=== PATIENT | male | born 1975 | race Caucasian/White ===

== ENCOUNTER 2020-07-11 13:37 | Outpatient (REF) | payer OTHER, SELFPAY ==
--- NOTE | 2020-07-11 13:46 | XR_ITS ---
EXAMINATION: XR KNEE, LEFT CLINICAL INFORMATION: Left knee pain COMPARISON: None TECHNIQUE: Four views of the left knee. FINDINGS: There is no fracture or dislocation or destructive process. No joint narrowing or erosive change or chondrocalcinosis. No suprapatellar effusion. Hoffa's fat pad appears normal. There is incidental small bone island distal anterior femoral shaft. XR/XR knee LT 4V IMPRESSION: Normal left knee.
== END 2020-07-11 13:38 | disposition home or self-care (01) ==
LOC: HO.HMGCX 13:37
PROVIDERS: PCP Internal Medicine; Visit Provider Hospitalist
DX: M25.562 Pain in left knee (principal); Z20.828 Contact with and (suspected) exposure to other viral communicable diseases
CPT/HCPCS: 73564; 87635

== ENCOUNTER 2021-02-27 09:58 | Outpatient (REF) | payer OTHER, SELFPAY ==
--- NOTE | ~2021-02-27 | XR_ITS ---
EXAMINATION: XR SHOULDER, RIGHT CLINICAL INFORMATION: Pain COMPARISON: None TECHNIQUE: Three views of the right shoulder. FINDINGS: Bone alignment is normal. No fracture or dislocation is seen. Joint spaces are normal. There is a small soft tissue calcification or ossification inferior to the distal clavicle near the coracoclavicular ligament. Soft tissues are otherwise unremarkable. XR/XR shoulder RT min 2V IMPRESSION: Small soft tissue calcification or ossification adjacent to the distal clavicle in the region of the coracoclavicular ligament otherwise unremarkable exam.
== END 2021-02-27 09:59 | disposition home or self-care (01) ==
LOC: HO.HOSX 09:58
PROVIDERS: PCP Internal Medicine; Visit Provider Physician Assistant
DX: M54.12 Radiculopathy, cervical region (principal); M25.511 Pain in right shoulder
CPT/HCPCS: 73030; 99202

== ENCOUNTER 2021-04-20 18:16 | Inpatient (IN) | payer OTHER, SELFPAY ==
[2021-04-20] VITALS (7 sets, daily range): BP systolic 84–133; BP diastolic 52–79; PULSE 78–105; RESP 16–17; TEMP 37.2; O2SAT 98–99; BMI 27.8
--- NOTE | ~2021-04-20 | CT_ITS ---
EXAMINATION: CT LEFT FOOT WITHOUT CONTRAST CLINICAL INFORMATION: [place]ar[place] removed from left heel. Swelling. Rule out abscess or foreign body. COMPARISON: None TECHNIQUE: Multidetector CT imaging of the left foot was performed without use of intravenous contrast. FINDINGS: No periosteal reaction, cortical destruction or intramedullary lucency to suggest osteomyelitis. There is fat stranding within the heel fat pad and posterior to the calcaneus without drainable collection. There is also coalescent stranding plantar to the fifth metatarsal head. Tendons of the ankle and plantar and extensor tendons of the foot appears intact. No tenosynovitis. Intrinsic musculature of the foot normal in signal intensity. No radiopaque foreign body. CT/CT foot LT wo con IMPRESSION: No evidence of abscess or osteomyelitis. No radiopaque foreign body. Mild fat stranding within the plantar heel fat pad and plantar to the fifth metatarsal head.
--- NOTE | ~2021-04-20 | CT_ITS ---
EXAMINATION: CT ABDOMEN AND PELVIS WITHOUT CONTRAST CLINICAL INFORMATION: Acute renal failure. Rule out stones, obstruction. COMPARISON: None TECHNIQUE: Multidetector volumetric imaging was performed from the superior aspect of the liver through the pubic symphysis. Sagittal and coronal reformatted images were obtained on the technologist's workstation. This CT examination was performed using dose optimization techniques as appropriate, variously including the following: *Automated exposure control *Adjustment of mA and/or kV according to patient size (this includes techniques or standardized protocols for targeted exams where dose is matched to indication/reason for exam; i.e. extremities or head) *Use of iterative reconstruction technique DLP: 659 mGy-cm FINDINGS: LUNG BASES: The visualized lung bases are unremarkable. Small hiatal hernia. LIVER, GALLBLADDER, AND BILIARY TREE: The liver is normal in size, shape, and attenuation. No focal hepatic lesion or biliary ductal dilatation is present. There is a 2 cm lamellated gallstone in the gallbladder. Gallbladder is contracted around this stone. No evidence of cholecystitis. PANCREAS: Unremarkable. SPLEEN: Unremarkable. ADRENAL GLANDS: Unremarkable. KIDNEYS AND URETERS: The kidneys are normal in size, shape, and attenuation. No hydronephrosis or hydroureter. Multiple bilateral nonobstructing renal calculi are identified. There is a 4 mm calculus within a right lower pole calyx. Most of the calculi measure 2 to 3 mm in diameter. These are too small to obtain a reliable attenuation value. No perinephric stranding. BLADDER: Unremarkable. GASTROINTESTINAL TRACT: Stomach, small bowel, and colon are normal in caliber. No bowel wall thickening or surrounding inflammatory changes. There is mild to moderate diffuse diverticulosis, most pronounced in the sigmoid colon. Appendix is not seen, likely surgically absent. No intraperitoneal free fluid or free air. ABDOMINAL WALL: No significant hernia is appreciated. LYMPH NODES: Normal. VASCULAR: Abdominal aorta is normal in caliber. No appreciable atherosclerotic calcifications. PELVIC VISCERA: The prostate and seminal vesicles are unremarkable. OSSEOUS STRUCTURES: Chronic bilateral L5 pars defects are noted. There is grade 1 anterolisthesis of L5 on S1 by 7 mm as well as slight retrolisthesis of L4 and L5. Degenerative disc disease is present at L5-S1. Bilateral neural foraminal encroachment is evident at L5-S1. CT/CT abdomen pelvis wo con IMPRESSION: 1. Bilateral nephrolithiasis without ureterolithiasis or findings of obstructive uropathy. Relief. 2. Cholelithiasis without evidence of acute cholecystitis. 3. Colonic diverticulosis without evidence of acute diverticulitis. 4. Bilateral pars defects at L5 with grade 1 anterolisthesis of L5 on S1, marked degenerative disc disease, and bilateral neural foraminal encroachment (exiting L5 nerve roots).
--- NOTE | ~2021-04-20 | XR_ITS ---
EXAMINATION: XR CHEST CLINICAL INFORMATION: Chest pain COMPARISON: 10/08/2019 TECHNIQUE: PA and lateral views of the chest were obtained. FINDINGS: Lungs are clear. No consolidation, pneumothorax, or pleural effusion. Cardiac and mediastinal contours are normal. Pulmonary vasculature is unremarkable. Trachea is midline. Left fifth rib fracture posteriorly is new from prior, though appears healed. No acute fractures. XR/XR chest 2V IMPRESSION: No acute cardiopulmonary findings.
--- NOTE | 2021-04-20 19:04 | ECG_ITS ---
Test Reason : SYNCOPE Blood Pressure : / mmHG Vent. Rate : 092 BPM Atrial Rate : 092 BPM P-R Int : 144 ms QRS Dur : 102 ms QT Int : 384 ms P-R-T Axes : 060 -11 064 degrees QTc Int : 474 ms Normal sinus rhythm Moderate voltage criteria for LVH, may be normal variant Nonspecific T wave abnormality Prolonged QT Abnormal ECG When compared with ECG of 07-OCT-2019 23:05, No significant change was found Referred By: Matthew Ordonez Electronically Signed By:Miguelangel Castillo
[2021-04-20 19:36] LABS: MANUAL DIFF FLAG NO
[2021-04-20 19:37] LABS: Basophils Percent Auto 0.2 % (0-2); Eosinophils Absolute Auto 0.1 X10*3/uL (0.0-0.4); Eosinophils Percent Auto 1.4 % (0-4); Hematocrit 39.2 % (42-52); Hemoglobin 12.8 g/dl (14.0-18.0); Imm Gran Abs Auto 0.02 X10*3/uL (0.00-0.03); Imm Gran Pct Auto 0.2 % (0.0-0.4); Lymphocytes Absolute Auto 1.7 X10*3/uL (1.2-4.9); Lymphocytes Percent Auto 19.7 % (20-40); Mean Corpuscular HGB Conc 32.7 g/dl (31.0-36.0); Mean Corpuscular Hemoglobin 29.7 pg (27.0-33.0); Mean Platelet Volume 9.9 fL (9.4-12.4); Monocytes Absolute Auto 1.1 X10*3/uL (0.1-1.2); Monocytes Percent Auto 13.3 % (2-11); Neutrophils Absolute Auto 5.5 X10*3/uL (2.0-8.3); Neutrophils Percent Auto 65.2 % (45-73); Platelet Count 196 X10*3/uL (160-400); Red Blood Count 4.31 X10*6/uL (4.60-5.80); Red Cell Distribution Width 13.6 % (11.0-16.0); White Blood Count 8.5 X10*3/uL (4.8-10.8)
[2021-04-20 19:44] LABS: INTERNATIONAL NORM RATIO 1.1 (0.9-1.1)
[2021-04-20 19:46] LABS: Partial Thromboplastin Time 32.4 SEC (24.1-38.0)
[2021-04-20] MEDS: cefTRIAXone sodium 1 GM in 0.9 % Sodium Chloride 100 ML IV (19:50)
[2021-04-20] MEDS: Diphth,Pertus(ACell),Tet Adult 0.5 ML SYRINGE IM (19:51)
[2021-04-20] MEDS: 0.9 % Sodium Chloride 2,721.54 ML 2721.54 ML IVCONT (19:52)
[2021-04-20 20:25] LABS: Lactic Acid 1.8 mmol/L (0.5-2.0)
[2021-04-20 20:41] LABS: Alanine Aminotransferase 34 U/L (0-40); Albumin Level 4.6 g/dL (3.5-5.0); Alkaline Phosphatase 74 U/L (39-117); Anion Gap 23 (12-20); Aspartate Amino Transferase 71 U/L (5-37); Bilirubin Total 0.5 mg/dL (0.0-1.0); Blood Urea Nitrogen 69 mg/dL (9-16); Calcium 8.8 mg/dL (8.4-10.2); Carbon Dioxide 17 mmol/L (22-29); Chloride 100 mmol/L (96-108); Creatinine Clr Calc Pharmacy 9.7; Estimated Glomerular Filt Rate 5; Glucose Random 101 mg/dL (60-115); Potassium 4.2 mmol/L (3.3-5.1); Sodium 136 mmol/L (135-145); Total Protein 7.8 g/dL (6.5-8.0)
[2021-04-20 20:42] LABS: Troponin-I High Sensitivity 61.8 ng/L (<3.5-35.0)
[2021-04-20] MEDS: Acetaminophen 325 MG TABLET 650 MG PO (21:33)
[2021-04-20] MEDS: traZODone HCL 100 MG TABLET PO (21:33)
[2021-04-20] MEDS: QUEtiapine Fumarate 300 MG TABLET PO (21:33)
[2021-04-20] MEDS: carvediloL 6.25 MG TABLET PO (21:33)
[2021-04-20 22:36] LABS: Glucose Urine UA NEG (NEG); Leukocyte Esterase Urine NEG (NEG); Nitrite Urine NEG (NEG); PH 5.5 (5.0-8.0); Specific Gravity - Urine 1.025 (1.005-1.025); UACC Culture Trigger NO; Urine Blood 3+ (NEG); Urine Ketones NEG (NEG); Urine Protein 1+ MG/DL (NEG-TRACE)
[2021-04-20 22:42] LABS: Appearance Urine CLEAR; Color Urine YELLOW
--- NOTE | 2021-04-20 22:53 | ED.GENADULT ---
HPI - General Adult General Chief complaint: Syncope Stated complaint: ? foot infection Time Seen by Provider: 04/20/21 18:46 Source: patient Mode of arrival: EMS Limitations: no limitations History of Present Illness HPI narrative: 45-year-old male who presents emergency department for evaluation of possible infection to his left heel after stepping fishhook and multiple episodes syncope. Patient states that 4 days prior he was fishing and stepped on a chaka facial. He states he is able hold the fishhook out with pliers. He states that 1 day after he pulled the fissure about, he poked his heel with a hand was able to express pus from the wound. He states that since that time he has been having increased pain in his left heel with increased swelling and increased warmth and redness. He also states he has had multiple episodes of lightheadedness and dizziness which have caused him to pass out. He believes that he is fall at least 3-4 times, this occurs mainly when he goes from a sitting to standing position. He states that he feels lightheaded and then blacks out. He denied fever but states that he has been experiencing shaking chills. He denied cough, dyspnea exertion or shortness of breath. He states that he has been experiencing chest pain but he has this constantly. He states that he has been getting a squeezing sensation in the center of his chest. He also complains of diffuse abdominal pain with no nausea or vomiting. States that he has been experiencing bouts of constipation and bouts of diarrhea. The patient does admit to snorting 1 g of cocaine 4 days prior. He has received tetanus vaccinations in the past but is not certain was last shot was given. The patient did receive the 2 shot Moderna COVID-19 vaccination with the 2nd shot in February 2021. Related Data Home Medications Medication Instructions Recorded Confirmed cholecalciferol (vitamin D3) 25 25 mcg PO DAILY 07/29/20 02/18/21 mcg (1,000 unit) capsule furosemide 20 mg tablet (Lasix) 20 mg PO DAILY 07/29/20 02/18/21 lisinopril 20 mg tablet 20 mg PO DAILY 07/29/20 02/18/21 quetiapine 50 mg tablet (Seroquel) 50 mg PO DAILY 07/29/20 gabapentin 300 mg capsule 300 mg PO TID 10/07/20 02/18/21 quetiapine 300 mg tablet (Seroquel) 300 mg PO DAILY 10/07/20 02/18/21 amlodipine 5 mg tablet 5 mg PO DAILY 02/18/21 02/18/21 atorvastatin 40 mg tablet 40 mg PO BEDTIME 02/18/21 02/18/21 trazodone 100 mg tablet 100 mg PO BEDTIME 02/18/21 02/18/21 Previous Rx's Medication Instructions Recorded diclofenac sodium 75 mg 75 mg PO BID 10 Days #20 tab 02/18/21 tablet,delayed release omeprazole 40 mg capsule,delayed 40 mg PO DAILY 90 Days #90 cap 02/18/21 release lidocaine 5 % topical patch 1 patch TOPICAL DAILY 30 Days #30 02/25/21 ea tramadol 50 mg tablet 50 mg PO BEDTIME 10 Days #10 tab 02/25/21 carvedilol 6.25 mg tablet 6.25 mg PO BID #180 tab 04/15/21 Allergies Allergy/AdvReac Type Severity Reaction Status Date / Time No Known Allergies Allergy Verified 04/20/21 18:37 [No Known Allergies*] bees Allergy Unknown swelling Uncoded 04/20/21 18:37 and difficulty breathing Review of Systems Review of Systems: Yes all other systems are reviewed and are negative [facility] Past Medical History [facility] Narrative: Social history: Patient denies tobacco use. He states that drinks alcohol occasionally. The patient does use marijuana daily. He states that he did snort 1 g of cocaine 4 days prior. Medical History Bipolar 1 disorder Cardiomyopathy CHF (congestive heart failure) CKD (chronic kidney disease) stage 3, GFR 30-59 ml/min Family History Family History Father No problems noted. Mother No problems noted. 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 Physical Exam Vital Signs: Vital Signs: Last Vital Signs Temp 98.9 F 04/20/21 18:30 Pulse 90 04/20/21 21:56 Resp 17 04/20/21 21:56 BP 130/79 04/20/21 21:56 Pulse Ox 98 04/20/21 21:56 Body Mass Index 27.8 Const: General: cooperative and no acute distress Orientation/consciousness: oriented to person and oriented to place Limitations: no limitations HENMT: Head: Yes normal to inspection, Yes normocephalic and Yes atraumatic Ears: external ears normal General nose exam: Normal external nose present Face and sinus: Yes normal facial exam Mouth: Normal oral and palatal mucosa present Throat: Yes posterior oropharynx normal Eyes: General: appearance normal, both eyes and all related structures Pupils: Equal, round and reactive pupils present Neck: Neck: Yes normal visual inspection, Yes no lymphadenopathy, Yes trachea midline and Yes supple Chest: Chest palpation & inspection: normal inspection of the chest and normal palpation of entire chest wall Resp: Effort & Inspection: normal respiratory effort and able to speak in complete sentences Auscultation: clear to auscultation bilaterally Cardio: Rate: regular rate Rhythm: regular rhythm Heart sounds: S1 normal heart sound present, S2 normal heart sound present and no murmurs GI: Inspection: Yes normal to inspection Palpation (GI): Soft to palpation, nontender and no guarding Auscultation: normal bowel sounds : General: Yes no CVA tenderness Back/Spine/Pelvis: Back: no CVA tenderness Skin: General skin exam: no rashes or lesions noted Neuro: General: oriented to person and oriented to place Cranial nerves: Yes CN's II-XII intact bilaterally and Yes Equal, round and reactive pupils present Cognition (Neuro): normal cognition Motor exam (neuro): 5/5 motor strength present throughout Extrem: Other: Patient's left heel does have some slight erythema with slight increased warmth, heel is flocculent, very tender to palpation, no lymphangitis noted, no purulent discharge. Psych: Appearance: grossly normal Speech and movement: Normal speech and movement present Affect: normal affect Attitude: cooperative Thought process: Normal thought process present Thought content: Normal thought content present Course Course Course Narrative: 45-year-old male who presents emergency department for evaluation of possible infection of the left heel after stepping on a chaka fishhook 4 days prior. Patient was able to remove the fishhook. He also stuck a pain in his heel 3 days prior and he states that he did express some purulent material. Patient is also complaining of multiple syncopal episodes and chest pain. Physical examination did reveal some increased erythema with increased soft tissue swelling and warmth of the heel. Laboratory evaluation was ordered. Concerned the patient may have an infection of his left heel and he was ordered to get ceftriaxone 1 g IV. His Tdap was also updated here in the emergency department. 2309: The patient's CBC revealed a normal white blood count of 8500. Comprehensive metabolic panel revealed an elevated BUN and creatinine of 69 and 10.94. This is elevated compared to a baseline of 19 and 1.51 on 10/07/2019. Patient's bicarb was also low at 17, potassium was normal at 4.2. The patient's CK was elevated at 7206. High sensitivity troponin was also elevated at 61.8, 3 hour repeat high sensitivity troponin was improved at 35. Urinalysis revealed 1+ protein and 3+ blood, microscopic revealed only 1-4 RBCs suggesting that the 3+ blood may be secondary to myoglobin from the elevated CK. I did discuss the patient's presentation with the covering refinery operator [employer] plant, Dr. Mejia who felt that the patient's acute kidney injury may be secondary to rhabdomyolysis caused by his cocaine use. He agreed with the normal saline bolus and recommended the patient be placed on normal saline at [address] scan of the abdomen pelvis did not reveal bilateral nephrolithiasis without obstructive uropathy. I discuss the patient's presentation with the covering hospitalist, Dr. Milan will admit the patient for further treatment. I will obtain a CT scan of the patient's left foot to evaluate for possible abscess or foreign body. Medical Decision Making Lab Data Result diagrams: 04/20/21 19:28 04/20/21 19:28 Labs: Lab Results 04/20/21 04/20/21 04/20/21 Range/Units 19:27 19:28 19:28 WBC 8.5 (4.8-10.8) X10*3/uL RBC 4.31 L (4.60-5.80) X10*6/uL Hgb 12.8 L (14.0-18.0) g/dl Hct 39.2 L (42-52) % MCV 91.0 (80-98) fL MCH 29.7 (27.0-33.0) pg MCHC 32.7 (31.0-36.0) g/dl RDW 13.6 (11.0-16.0) % Plt Count 196 (160-400) X10*3/uL MPV 9.9 (9.4-12.4) fL Immature Gran % (Auto) 0.2 (0.0-0.4) % Neut % (Auto) 65.2 (45-73) % Lymph % (Auto) 19.7 L (20-40) % Emery % (Auto) 13.3 H (2-11) % Eos % (Auto) 1.4 (0-4) % Baso % (Auto) 0.2 (0-2) % Lymph # (Auto) 1.7 (1.2-4.9) X10*3/uL Emery # (Auto) 1.1 (0.1-1.2) X10*3/uL Eos # (Auto) 0.1 (0.0-0.4) X10*3/uL Baso # (Auto) 0.0 (0.0-0.2) X10*3/uL Abs Immat Gran (auto) 0.02 (0.00-0.03) X10*3/uL Absolute Neuts (auto) 5.5 (2.0-8.3) X10*3/uL Absolute Nucleated RBC 0.000 (0.0-0.012) X10*3/uL Nucleated RBC % (auto) 0.0 (0.0-0.2) /100WBC PT 12.0 (9.9-13.0) SEC INR 1.1 (0.9-1.1) APTT 32.4 (24.1-38.0) SEC Sodium (135-145) mmol/L Potassium (3.3-5.1) mmol/L Chloride (96-108) mmol/L Carbon Dioxide (22-29) mmol/L Anion Gap (12-20) BUN (9-16) mg/dL Creatinine (0.5-1.4) mg/dL Estim Creat Clear Calc Estimated GFR Random Glucose (60-115) mg/dL Lactic Acid 1.8 (0.5-2.0) mmol/L Calcium (8.4-10.2) mg/dL Total Bilirubin (0.0-1.0) mg/dL AST (5-37) U/L ALT (0-40) U/L Alkaline Phosphatase (39-117) U/L Total Creatine Kinase (38-174) U/L Troponin I High Sens (<3.5-35.0) ng/L Total Protein (6.5-8.0) g/dL Albumin (3.5-5.0) g/dL Urine Color Urine Appearance Urine pH (5.0-8.0) Ur Specific [place] (1.005-1.025) Urine Protein (NEG-TRACE) MG/DL Urine Glucose (UA) (NEG) MG/DL Urine Ketones (NEG) MG/DL Urine Blood (NEG) Urine Nitrite (NEG) Ur Leukocyte Esterase (NEG) Urine RBC (0) /HPF Urine WBC (0-4) /HPF Ur Squamous Epith Cells /LPF Amorphous Sediment /LPF Urine Bacteria /LPF Hyaline Casts /LPF Urine Mucus /LPF 04/20/21 04/20/21 04/20/21 Range/Units 19:28 19:28 22:25 WBC (4.8-10.8) X10*3/uL RBC (4.60-5.80) X10*6/uL Hgb (14.0-18.0) g/dl Hct (42-52) % MCV (80-98) fL MCH (27.0-33.0) pg MCHC (31.0-36.0) g/dl RDW (11.0-16.0) % Plt Count (160-400) X10*3/uL MPV (9.4-12.4) fL Immature Gran % (Auto) (0.0-0.4) % Neut % (Auto) (45-73) % Lymph % (Auto) (20-40) % Emery % (Auto) (2-11) % Eos % (Auto) (0-4) % Baso % (Auto) (0-2) % Lymph # (Auto) (1.2-4.9) X10*3/uL Emery # (Auto) (0.1-1.2) X10*3/uL Eos # (Auto) (0.0-0.4) X10*3/uL Baso # (Auto) (0.0-0.2) X10*3/uL Abs Immat Gran (auto) (0.00-0.03) X10*3/uL Absolute Neuts (auto) (2.0-8.3) X10*3/uL Absolute Nucleated RBC (0.0-0.012) X10*3/uL Nucleated RBC % (auto) (0.0-0.2) /100WBC PT (9.9-13.0) SEC INR (0.9-1.1) APTT (24.1-38.0) SEC Sodium 136 (135-145) mmol/L Potassium 4.2 (3.3-5.1) mmol/L Chloride 100 (96-108) mmol/L Carbon Dioxide 17 L (22-29) mmol/L Anion Gap 23 H (12-20) BUN 69 H (9-16) mg/dL Creatinine 10.94 H* (0.5-1.4) mg/dL Estim Creat Clear Calc 9.7 Estimated GFR 5 Random Glucose 101 (60-115) mg/dL Lactic Acid (0.5-2.0) mmol/L Calcium 8.8 (8.4-10.2) mg/dL Total Bilirubin 0.5 (0.0-1.0) mg/dL AST 71 H (5-37) U/L ALT 34 (0-40) U/L Alkaline Phosphatase 74 (39-117) U/L Total Creatine Kinase 7206 H (38-174) U/L Troponin I High Sens 61.8 H* 35.0 (<3.5-35.0) ng/L Total Protein 7.8 (6.5-8.0) g/dL Albumin 4.6 (3.5-5.0) g/dL Urine Color Urine Appearance Urine pH (5.0-8.0) Ur Specific [place] (1.005-1.025) Urine Protein (NEG-TRACE) MG/DL Urine Glucose (UA) (NEG) MG/DL Urine Ketones (NEG) MG/DL Urine Blood (NEG) Urine Nitrite (NEG) Ur Leukocyte Esterase (NEG) Urine RBC (0) /HPF Urine WBC (0-4) /HPF Ur Squamous Epith Cells /LPF Amorphous Sediment /LPF Urine Bacteria /LPF Hyaline Casts /LPF Urine Mucus /LPF 04/20/21 Range/Units 22:25 WBC (4.8-10.8) X10*3/uL RBC (4.60-5.80) X10*6/uL Hgb (14.0-18.0) g/dl Hct (42-52) % MCV (80-98) fL MCH (27.0-33.0) pg MCHC (31.0-36.0) g/dl RDW (11.0-16.0) % Plt Count (160-400) X10*3/uL MPV (9.4-12.4) fL Immature Gran % (Auto) (0.0-0.4) % Neut % (Auto) (45-73) % Lymph % (Auto) (20-40) % Emery % (Auto) (2-11) % Eos % (Auto) (0-4) % Baso % (Auto) (0-2) % Lymph # (Auto) (1.2-4.9) X10*3/uL Emery # (Auto) (0.1-1.2) X10*3/uL Eos # (Auto) (0.0-0.4) X10*3/uL Baso # (Auto) (0.0-0.2) X10*3/uL Abs Immat Gran (auto) (0.00-0.03) X10*3/uL Absolute Neuts (auto) (2.0-8.3) X10*3/uL Absolute Nucleated RBC (0.0-0.012) X10*3/uL Nucleated RBC % (auto) (0.0-0.2) /100WBC PT (9.9-13.0) SEC INR (0.9-1.1) APTT (24.1-38.0) SEC Sodium (135-145) mmol/L Potassium (3.3-5.1) mmol/L Chloride (96-108) mmol/L Carbon Dioxide (22-29) mmol/L Anion Gap (12-20) BUN (9-16) mg/dL Creatinine (0.5-1.4) mg/dL Estim Creat Clear Calc Estimated GFR Random Glucose (60-115) mg/dL Lactic Acid (0.5-2.0) mmol/L Calcium (8.4-10.2) mg/dL Total Bilirubin (0.0-1.0) mg/dL AST (5-37) U/L ALT (0-40) U/L Alkaline Phosphatase (39-117) U/L Total Creatine Kinase (38-174) U/L Troponin I High Sens (<3.5-35.0) ng/L Total Protein (6.5-8.0) g/dL Albumin (3.5-5.0) g/dL Urine Color YELLOW Urine Appearance CLEAR Urine pH 5.5 (5.0-8.0) Ur Specific [place] 1.025 (1.005-1.025) Urine Protein 1+ H (NEG-TRACE) MG/DL Urine Glucose (UA) NEG (NEG) MG/DL Urine Ketones NEG (NEG) MG/DL Urine Blood 3+ H (NEG) Urine Nitrite NEG (NEG) Ur Leukocyte Esterase NEG (NEG) Urine RBC 1-4 (0) /HPF Urine WBC 0-2 (0-4) /HPF Ur Squamous Epith Cells TRACE /LPF Amorphous Sediment TRACE /LPF Urine Bacteria TRACE /LPF Hyaline Casts 0-2 /LPF Urine Mucus TRACE /LPF ECG Data Attestation: I personally reviewed and interpreted this ECG as follows: Interpretation: 1904: Normal sinus rhythm rate of 92, normal TX interval, prolonged QRS of 102 milliseconds, normal QTC of 474 milliseconds, Q-wave noted in lead AVF, no ST segment elevation, no ST segment depression, no peaked T-waves, no PACs, no PVCs. Discharge Plan Discharge Clinical Impression: Cellulitis of heel, left, Acute kidney injury, Acute renal failure due to rhabdomyolysis, Syncope Patient Disposition: Admitted As Inpatient Prescriptions: No Action omeprazole 40 mg capsule,delayed release(DR/EC) 40 mg PO DAILY 90 Days Qty: 90 RF: 0 lidocaine 5 % adhesive patch,medicated 1 patch topical DAILY 30 Days Qty: 30 RF: 0 tramadol 50 mg tablet 50 mg PO BEDTIME 10 Days Qty: 10 RF: 0 carvedilol 6.25 mg tablet 6.25 mg PO BID Qty: 180 RF: 0 gabapentin 300 mg capsule 300 mg PO TID RF: 0 quetiapine [Seroquel] 300 mg tablet 300 mg PO DAILY RF: 0 amlodipine 5 mg tablet 5 mg PO DAILY RF: 0 atorvastatin 40 mg tablet 40 mg PO BEDTIME RF: 0 trazodone 100 mg tablet 100 mg PO BEDTIME RF: 0 diclofenac sodium 75 mg tablet,delayed release (DR/EC) 75 mg PO BID 10 Days Qty: 20 RF: 0 furosemide [Lasix] 20 mg tablet 20 mg PO DAILY RF: 0 cholecalciferol (vitamin D3) 25 mcg (1,000 unit) capsule 25 mcg PO DAILY RF: 0 lisinopril 20 mg tablet 20 mg PO DAILY RF: 0
[2021-04-20 22:56] LABS: Bacteria Urine TRACE /LPF; Hyaline Casts Urine 0-2 /LPF; Mucus Urine TRACE /LPF; Squamous Epithelial Cell Urine TRACE /LPF; WBC Urine 0-2 /HPF (0-4)
[2021-04-20 22:57] LABS: Amorphous Sediment Urine TRACE /LPF
--- NOTE | 2021-04-20 23:07 | PC.NURSE ---
PT HAS AMBULATED TO BATHROOM MULTIPLE TIMES WITHOUT ASSISTANCE, COMPLAINTS OF DIZZINESS RESOLVED. HAS REMAINED NORMOTENSIVE FOR THE PAST SEVERAL HRS.
--- NOTE | 2021-04-20 23:42 | P.HPHOSP_ITS ---
History of Present Illness Date of Service: 04/20/21 Chief Complaint: Heel pain This this is a 45-year-old male with past medical history of bipolar disorder, CHF, CKD, cardiomyopathy, CAD, HTN, anxiety and depression, who presents to the hospital with complaints of left heel pain. Patient reports that he went fi shing 4 days ago, and stepped on a in Old fishing hook, he had pain in his heel but did not think much of it, today he felt that his heel was more swollen and therefore decided to come to the ED for further evaluation. Reports the pain is 1/10, nonradiating, he noticed redness and mild swelling. . Patient reports suprapubic pain as well as bilateral flank pain. He denies any fever or chills, denies abdominal pain, but reports that this afternoon he started having urinary retention with no urgency or dysuria. He reports no chest pain, no shortness of breath, no abdominal pain nausea or vomiting, no diarrhea constipation, no weakness numbness or tingling. He also reports that he has had about 5 falls in the past 3 days due to dizziness. He had 1 syncopal episode that resolved after less than a minute. Denies any palpitations chest pain but reports significant dizziness prior to him falling. Patient admits using cocaine as well 4 days ago but reports that he has not used cocaine in many years prior to that. On arrival to the ED patient hemodynamically stable with a temp of 98.9?, heart rate of 94, respiratory rate of 16, blood pressure was found to be 84/53, satting 99% on room air 8.5, hemoglobin of 12.8 sodium of 136, potassium 4.2, BUN of 69, with a creatinine of 10.9 for as compared to 19 and 1.51 in 09/2019, CPK of 7206, and an elevated troponin of 61.8, UA negative for any infection, positive for 1+ protein and urine blood with 1-4 RBC. UDS positive for cocaine and marijuana. CT of the abdomen shows bilateral nephrolithiasis without ureterolithiasis, and findings of obstructive uropathy. There is also cholelithiasis without evidence of acute cholecystitis, Of abscess or osteomyelitis, no radiopaque foreign body, mild fat stranding with the plantar heel fat pad and plantar to the 5th metatarsal head. Nephrology was consulted, patient will be given IV fluids and followed in a.m. Review of Systems Review of Systems: Yes all other systems are reviewed and are negative COUNTS INCLUDE 234 BEDS AT THE [facility] Medical History Bipolar 1 disorder Cardiomyopathy CHF (congestive heart failure) CKD (chronic kidney disease) stage 3, GFR 30-59 ml/min Family History Father No problems noted. Mother No problems noted. Social History Household Members: Family Household Members Other:: mother [facility] Do you presently have visiting nurse or other home services: No Alcohol intake: current Alcohol intake frequency: 0-2 drinks per day Alcohol type: hard liquor Patient Tobacco Use Status: Never used Tobacco Substance Use Type: Crack/Cocaine and Marijuana Currently Displaying Signs/Symptoms of Drug Intoxication Withdrawal: No Have you been hit, kicked, punched, or otherwise hurt by someone within the past year? 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 Meds Allergies Allergy/AdvReac Type Severity Reaction Status Date / Time No Known Allergies Allergy Verified 04/20/21 18:37 [No Known Allergies*] bees Allergy Unknown swelling Uncoded 04/20/21 18:37 and difficulty breathing Active Medications: Current Medications Generic Name Dose Route Start Last Admin Trade Name Freq PRN Reason Stop Dose Admin Acetaminophen 650 mg 04/20/21 23:40 Acetaminophen 325 Mg Tablet PO Q6H PRN Pain, Mild (Pain Scale 1-3) Atorvastatin Calcium 40 mg 04/21/21 21:00 Atorvastatin Calcium 40 Mg Tablet PO BEDTIME [facility] Carvedilol 6.25 mg 04/21/21 09:00 Carvedilol 6.25 Mg Tablet PO BID [facility]ADA Protocol Diclofenac Sodium 75 mg 04/21/21 09:00 Diclofenac Sodium Delayed Rel 75 Mg Tablet. PO BID [facility] Gabapentin 300 mg 04/21/21 09:00 Gabapentin 300 Mg Capsule PO TID [facility] Heparin Sodium (Porcine) 5,000 unit 04/20/21 23:45 Heparin Sodium,Porcine 5,000 Unit/Ml Vial SUBCUT Q12H [facility] Ceftriaxone Sodium 1 gm/ 50 mls @ 100 mls/hr 04/20/21 23:45 Sodium Chloride IV Q24H [facility] Lactated Ringer's 1,000 mls @ 100 mls/hr 04/20/21 23:45 Lr IVCONT .Q10H [facility] Non-Formulary Medication 1 patch 04/21/21 09:00 Lidocaine TOPICAL DAILY [facility] Omeprazole 40 mg 04/21/21 09:00 Omeprazole 40 Mg Capsule. PO DAILY [facility] Ondansetron HCl 4 mg 04/20/21 23:40 Ondansetron Hcl 4 Mg/2 Ml Vial IVPUSH Q8H PRN Nausea and Vomiting Pharmacy Consult 1 each 04/20/21 20:52 Consult Rx Perform Med Rec MISCELLANE ONCE PRN Consult order Quetiapine Fumarate 300 mg 04/21/21 09:00 Quetiapine Fumarate 300 Mg Tablet PO DAILY [facility] Sodium Chloride 3 ml 04/21/21 00:00 0.9 % Sodium Chloride Flush 3 Ml Syringe IVFLUSH QSHIFT [facility] Tramadol HCl 50 mg 04/21/21 21:00 Tramadol Hcl 50 Mg Tablet PO BEDTIME [facility] Trazodone HCl 100 mg 04/20/21 23:45 Trazodone Hcl 100 Mg Tablet PO BEDTIME [facility] Home Medications Medication Instructions Recorded Confirmed Last Taken Type cholecalciferol (vitamin D3) 25 25 mcg PO DAILY 07/29/20 04/20/21 Unknown History mcg (1,000 unit) capsule furosemide 20 mg tablet (Lasix) 20 mg PO DAILY 07/29/20 04/20/21 Unknown History lisinopril 20 mg tablet 20 mg PO DAILY 07/29/20 04/20/21 Unknown History quetiapine 50 mg tablet (Seroquel) 50 mg PO DAILY 07/29/20 04/20/21 Unknown History gabapentin 300 mg capsule 300 mg PO TID 10/07/20 04/20/21 Unknown History quetiapine 300 mg tablet (Seroquel) 300 mg PO DAILY 10/07/20 04/20/21 Unknown History amlodipine 5 mg tablet 5 mg PO DAILY 02/18/21 04/20/21 Unknown History atorvastatin 40 mg tablet 40 mg PO BEDTIME 02/18/21 04/20/21 Unknown History trazodone 100 mg tablet 100 mg PO BEDTIME 02/18/21 04/20/21 Unknown History Physical Exam Vital Signs and Narrative: Vital Signs: Last Vital Signs Temp 98.9 F 04/20/21 18:30 Pulse 90 04/20/21 21:56 Resp 17 04/20/21 21:56 BP 130/79 04/20/21 21:56 Pulse Ox 98 04/20/21 23:06 Body Mass Index 27.8 Const: General: cooperative and no acute distress Orientation/consciousness: patient oriented x3 Eyes: General: appearance normal, both eyes and all related structures Resp: Effort & Inspection: normal respiratory effort and able to speak in complete sentences Auscultation: clear to auscultation bilaterally Cardio: Rate: regular rate Rhythm: regular rhythm GI: Palpation (GI): Soft to palpation Auscultation: normal bowel sounds Skin: General skin exam: no rashes or lesions noted Neuro: General: patient oriented x3 Cognition (Neuro): normal cognition Extrem: Other: Left lower extremity heel has entry points with no evidence of significant infection, mildly tender and swollen with minimal erythema and no warmth. General: Yes normal to inspection and Yes no pedal edema Results Labs CBC and Chem 7: 04/20/21 19:28 04/20/21 19:28 Labs: Laboratory Results - last 24 hr 04/20/21 04/20/21 04/20/21 19:27 19:28 19:28 MCV 91.0 MCH 29.7 MCHC 32.7 RDW 13.6 Plt Count 196 MPV 9.9 Immature Gran % (Auto) 0.2 Neut % (Auto) 65.2 Lymph % (Auto) 19.7 L [place] % (Auto) 13.3 H Eos % (Auto) 1.4 Baso % (Auto) 0.2 Lymph # (Auto) 1.7 [place] # (Auto) 1.1 Eos # (Auto) 0.1 Baso # (Auto) 0.0 Abs Immat Gran (auto) 0.02 Absolute Neuts (auto) 5.5 Absolute Nucleated RBC 0.000 Nucleated RBC % (auto) 0.0 PT 12.0 INR 1.1 APTT 32.4 Anion Gap Estim Creat Clear Calc Estimated GFR Random Glucose Lactic Acid 1.8 Calcium Total Bilirubin AST ALT Alkaline Phosphatase Total Creatine Kinase Troponin I High Sens Total Protein Albumin Urine Color Urine Appearance Urine pH Ur Specific [place] Urine Protein Urine Glucose (UA) Urine Ketones Urine Blood Urine Nitrite Ur Leukocyte Esterase Urine RBC Urine WBC Ur Squamous Epith Cells Amorphous Sediment Urine Bacteria Hyaline Casts Urine Mucus 04/20/21 04/20/21 04/20/21 19:28 19:28 22:25 MCV MCH MCHC RDW Plt Count MPV Immature Gran % (Auto) Neut % (Auto) Lymph % (Auto) [place] % (Auto) Eos % (Auto) Baso % (Auto) Lymph # (Auto) [place] # (Auto) Eos # (Auto) Baso # (Auto) Abs Immat Gran (auto) Absolute Neuts (auto) Absolute Nucleated RBC Nucleated RBC % (auto) PT INR APTT Anion Gap 23 H Estim Creat Clear Calc 9.7 Estimated GFR 5 Random Glucose 101 Lactic Acid Calcium 8.8 Total Bilirubin 0.5 AST 71 H ALT 34 Alkaline Phosphatase 74 Total Creatine Kinase 7206 H Troponin I High Sens 61.8 H* 35.0 Total Protein 7.8 Albumin 4.6 Urine Color Urine Appearance Urine pH Ur Specific [place] Urine Protein Urine Glucose (UA) Urine Ketones Urine Blood Urine Nitrite Ur Leukocyte Esterase Urine RBC Urine WBC Ur Squamous Epith Cells Amorphous Sediment Urine Bacteria Hyaline Casts Urine Mucus 04/20/21 22:25 MCV MCH MCHC RDW Plt Count MPV Immature Gran % (Auto) Neut % (Auto) Lymph % (Auto) [place] % (Auto) Eos % (Auto) Baso % (Auto) Lymph # (Auto) [place] # (Auto) Eos # (Auto) Baso # (Auto) Abs Immat Gran (auto) Absolute Neuts (auto) Absolute Nucleated RBC Nucleated RBC % (auto) PT INR APTT Anion Gap Estim Creat Clear Calc Estimated GFR Random Glucose Lactic Acid Calcium Total Bilirubin AST ALT Alkaline Phosphatase Total Creatine Kinase Troponin I High Sens Total Protein Albumin Urine Color YELLOW Urine Appearance CLEAR Urine pH 5.5 Ur Specific [place] 1.025 Urine Protein 1+ H Urine Glucose (UA) NEG Urine Ketones NEG Urine Blood 3+ H Urine Nitrite NEG Ur Leukocyte Esterase NEG Urine RBC 1-4 Urine WBC 0-2 Ur Squamous Epith Cells TRACE Amorphous Sediment TRACE Urine Bacteria TRACE Hyaline Casts 0-2 Urine Mucus TRACE Imaging Radiologist's Impressions: Impressions Chest X-Ray 04/20/21 19:01 IMPRESSION: No acute cardiopulmonary findings. Abdomen/Pelvis CT 04/20/21 20:52 IMPRESSION: 1. Bilateral nephrolithiasis without ureterolithiasis or findings of obstructive uropathy. Relief. 2. Cholelithiasis without evidence of acute cholecystitis. 3. Colonic diverticulosis without evidence of acute diverticulitis. 4. Bilateral pars defects at L5 with grade 1 anterolisthesis of L5 on S1, marked degenerative disc disease, and bilateral neural foraminal encroachment (exiting L5 nerve roots). Assessment and Plan (1) Acute kidney injury superimposed on CKD: Status: Acute (2) Cellulitis of heel, left: Status: Acute (3) Rhabdomyolysis: Status: Acute (4) Syncope: Status: Acute (5) Cocaine abuse: Status: Acute (6) Hypotension: Status: Acute (7) Falls: Status: Acute (8) Elevated troponin: Status: Acute 45-year-old male with past medical history of cardiomyopathy, hypertension, among others who presents the hospital with complaints of left heel pain after heel injury found to have significant ERIN # acute kidney injury on CKD - patient has significant elevation in his creatinine from 1.51 about a year and half ago to 10.9 today - use cocaine few days ago therefore most likely precipitating factor - UA negative, no evidence of obstructive uropathy on CT abdomen - no hyperkalemia, no uremia - will start him on IV fluids - follow BMP - will hold nephrotoxic meds - nephrology consulted # rhabdomyolysis - most likely secondary to recurrent falls - patient reports he has had 5 falls within the last 3 days - CPK is elevated - will start him on IV fluids - follow CPK level # cellulitis of left heel - CT evidence of mild fat stranding within the plantar heel fat pad and plantar to the 5th metatarsal head - will start him on IV antibiotics - will obtain ESR and CRP , if significantly elevated consider MRI to rule out osteomyelitis - afebrile, no leukocytosis - follow cultures # syncope - possibly secondary to hypertension - patient reports 5 episodes of fall and 1 of them he syncopized - reports significant dizziness prior to each fall and syncopal episode - on arrival patient had significant hypotension - no EKG changes - at this time will admit to telemetry - monitor # cocaine abuse - used 1 episode 4 days ago which is most likely the cause of his ERIN - discussed extensively abstinence given his history of CAD as well as CHF and now kidney failureand patient understands # elevated troponin - denies any chest pain - resolved with no delta - no EKG changes suggestive of ACS - admit to telemetry # hypotension - unclear etiology, possibly secondary to dehydration - patient afebrile, no leukocytosis to suggest sepsis - patient's hypotension resolved with fluids - will hold antihypertensives - monitor DVT prophylaxis: heparin Quality Stroke Does the patient have a stroke diagnosis?: No VTE Prior VTE?: No VTE Risk Level:: Medical - moderate - high VTE Device Contraindication: Treatment Not Indicated VTE Drug Contraindication: N/A - Med Ordered
[2021-04-20 23:58] LABS: COVID-19 Test Negative (Negative)
[2021-04-21] VITALS (9 sets, daily range): BP systolic 128–172; BP diastolic 64–109; PULSE 70–98; RESP 18–20; TEMP 36.4–37.2; O2SAT 95–99; BMI 28.5
[2021-04-21] MEDS: Lactated Ringers 1,000 ML 100 ML IVCONT ×2 (01:49→16:37)
[2021-04-21] MEDS: 0.9 % Sodium Chloride Flush 3 ML SYRINGE IVFLUSH ×2 (01:51→09:05)
[2021-04-21] MEDS: Heparin Sodium,Porcine 5,000 UNIT/ML VIAL 5000 UNIT SUBCUT ×2 (01:55→11:57)
[2021-04-21] MEDS: Acetaminophen 325 MG TABLET 650 MG PO ×3 (05:02→19:21)
[2021-04-21 05:19] LABS: Amphetamine Screen Urine Not Detected (Not Detect); Barbiturates, Urine Not Detected (Not Detect); Benzodiazepines Screen Urine Not Detected (Not Detect); Cannabinoid Screen Urine POSITIVE (Not Detect); Cocaine Screen Urine POSITIVE (Not Detect); Opiate Screen Urine Not Detected (Not Detect); Phencyclidine Screen Urine Not Detected (Not Detect)
[2021-04-21 06:36] LABS: MANUAL DIFF FLAG NO
[2021-04-21 06:42] LABS: Basophils Percent Auto 0.3 % (0-2); Eosinophils Absolute Auto 0.1 X10*3/uL (0.0-0.4); Eosinophils Percent Auto 1.5 % (0-4); Hematocrit 32.5 % (42-52); Hemoglobin 10.5 g/dl (14.0-18.0); Imm Gran Abs Auto 0.02 X10*3/uL (0.00-0.03); Imm Gran Pct Auto 0.3 % (0.0-0.4); Lymphocytes Absolute Auto 1.6 X10*3/uL (1.2-4.9); Lymphocytes Percent Auto 23.5 % (20-40); Mean Corpuscular HGB Conc 32.3 g/dl (31.0-36.0); Mean Corpuscular Hemoglobin 29.6 pg (27.0-33.0); Mean Corpuscular Volume 91.5 fL (80-98); Mean Platelet Volume 10.2 fL (9.4-12.4); Monocytes Absolute Auto 0.7 X10*3/uL (0.1-1.2); Monocytes Percent Auto 10.9 % (2-11); Neutrophils Absolute Auto 4.2 X10*3/uL (2.0-8.3); Neutrophils Percent Auto 63.5 % (45-73); Platelet Count 161 X10*3/uL (160-400); Red Blood Count 3.55 X10*6/uL (4.60-5.80); Red Cell Distribution Width 13.7 % (11.0-16.0); White Blood Count 6.7 X10*3/uL (4.8-10.8)
[2021-04-21 07:37] LABS: Anion Gap 16 (12-20); Blood Urea Nitrogen 62 mg/dL (9-16); C Reactive Protein 2.91 mg/dL (< or = 0.50); Calcium 7.7 mg/dL (8.4-10.2); Carbon Dioxide 16 mmol/L (22-29); Chloride 109 mmol/L (96-108); Creatinine Clr Calc Pharmacy 17.2; Estimated Glomerular Filt Rate 10; Glucose Random 162 mg/dL (60-115); Potassium 3.8 mmol/L (3.3-5.1); Sodium 137 mmol/L (135-145)
[2021-04-21 08:09] LABS: Erythrocyte Sedimentation Rate 16 MM/HR (0-15)
[2021-04-21] MEDS: carvediloL 6.25 MG TABLET PO ×2 (09:03→20:45)
[2021-04-21] MEDS: Lidocaine 4 % Patch ADH..PATCH 1 PATCH TRANSDERMA (09:04)
[2021-04-21] MEDS: Omeprazole 40 MG CAPSULE.DR PO (09:04)
--- NOTE | 2021-04-21 10:19 | P.CONNP_ITS ---
History of Present Illness Reason for Consult Consult date: 04/21/21 Reason for consult: erin Requesting physician: Christo Conway Chief Complaint Chief complaint: ERIN, Rhabdo History of Present Illness Narrative: C/O heel pain and bilateral flank pain. In er Scr 10 and elevated CPK in 7000 range and adm to cocaine use. Tox scree n pos. Scr down to 6 to day after IVF. Cont to c/o flank pain. Ques h/o of NSAID use. C/O contipation this am [facility] Past Medical History Medical History Bipolar 1 disorder Cardiomyopathy CHF (congestive heart failure) CKD (chronic kidney disease) stage 3, GFR 30-59 ml/min Family History Family History Father No problems noted. Mother No problems noted. Social History Social History Household Members: Family Household Members Other:: mother [facility] Do you presently have visiting nurse or other home services: No Alcohol intake: current Alcohol intake frequency: 0-2 drinks per day Alcohol type: hard liquor Patient Tobacco Use Status: Never used Tobacco Substance Use Type: Crack/Cocaine and Marijuana Currently Displaying Signs/Symptoms of Drug Intoxication Withdrawal: No Have you been hit, kicked, punched, or otherwise hurt by someone within the past year? 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 Meds Allergies Allergy/AdvReac Type Severity Reaction Status Date / Time No Known Allergies Allergy Verified 04/20/21 18:37 [No Known Allergies*] bees Allergy Unknown swelling Uncoded 04/20/21 18:37 and difficulty breathing Active Medications: Current Medications Generic Name Dose Route Start Last Admin Trade Name Freq PRN Reason Stop Dose Admin Acetaminophen 650 mg 04/20/21 23:40 04/21/21 05:02 Acetaminophen 325 Mg Tablet PO 650 mg Q6H PRN Administration Pain, Mild (Pain Scale 1-3) Atorvastatin Calcium 40 mg 04/21/21 21:00 Atorvastatin Calcium 40 Mg Tablet PO BEDTIME [facility]ADA Carvedilol 6.25 mg 04/21/21 09:00 04/21/21 09:03 Carvedilol 6.25 Mg Tablet PO 6.25 mg BID GHADA Administration Protocol Diclofenac Sodium 75 mg 04/21/21 09:00 Diclofenac Sodium Delayed Rel 75 Mg Tablet. PO BID [facility]ADA Gabapentin 300 mg 04/21/21 09:00 Gabapentin 300 Mg Capsule PO TID [facility]ADA Heparin Sodium (Porcine) 5,000 unit 04/20/21 23:45 04/21/21 01:55 Heparin Sodium,Porcine 5,000 Unit/Ml Vial SUBCUT 5,000 unit Q12H [facility]ADA Administration Ceftriaxone Sodium 1 gm/ 50 mls @ 100 mls/hr 04/21/21 20:00 Sodium Chloride IV Q24H GHADA Lactated Ringer's 1,000 mls @ 100 mls/hr 04/20/21 23:45 04/21/21 01:49 Lr IVCONT 100 mls/hr .Q10H [facility]ADA Administration Lidocaine 1 patch 04/21/21 09:00 04/21/21 09:04 Lidocaine 4 % Patch Adh..Patch TRANSDERMA 1 patch DAILY [facility]ADA Administration Omeprazole 40 mg 04/21/21 09:00 04/21/21 09:04 Omeprazole 40 Mg Capsule. PO 40 mg DAILY [facility]ADA Administration Ondansetron HCl 4 mg 04/20/21 23:40 Ondansetron Hcl 4 Mg/2 Ml Vial IVPUSH Q8H PRN Nausea and Vomiting Pharmacy Consult 1 each 04/20/21 20:52 Consult Rx Perform Med Rec MISCELLANE ONCE PRN Consult order Quetiapine Fumarate 300 mg 04/21/21 09:00 04/21/21 09:13 Quetiapine Fumarate 300 Mg Tablet PO Not Given DAILY [facility]ADA Sodium Chloride 3 ml 04/21/21 00:00 04/21/21 09:05 0.9 % Sodium Chloride Flush 3 Ml Syringe IVFLUSH 3 ml QSHIFT GHADA Administration Tramadol HCl 50 mg 04/21/21 21:00 Tramadol Hcl 50 Mg Tablet PO BEDTIME [facility] Trazodone HCl 100 mg 04/20/21 23:45 04/21/21 01:57 Trazodone Hcl 100 Mg Tablet PO Not Given BEDTIME [facility] Home Medications Medication Instructions Recorded Confirmed Last Taken Type cholecalciferol (vitamin D3) 25 25 mcg PO DAILY 07/29/20 04/20/21 Unknown Hist ory mcg (1,000 unit) capsule furosemide 20 mg tablet (Lasix) 20 mg PO DAILY 07/29/20 04/20/21 Unknown History lisinopril 20 mg tablet 20 mg PO DAILY 07/29/20 04/20/21 Unknown History quetiapine 50 mg tablet (Seroquel) 50 mg PO DAILY 07/29/20 04/20/21 Unknown History gabapentin 300 mg capsule 300 mg PO TID 10/07/20 04/20/21 Unknown History quetiapine 300 mg tablet (Seroquel) 300 mg PO DAILY 10/07/20 04/20/21 Unknown History amlodipine 5 mg tablet 5 mg PO DAILY 02/18/21 04/20/21 Unknown History atorvastatin 40 mg tablet 40 mg PO BEDTIME 02/18/21 04/20/21 Unknown History trazodone 100 mg tablet 100 mg PO BEDTIME 02/18/21 04/20/21 Unknown History Physical Exam Vital Signs: Last Vital Signs Temp 98 F 04/21/21 06:59 Pulse 86 04/21/21 09:03 Resp 20 04/21/21 06:59 BP 146/83 H 04/21/21 09:03 Pulse Ox 97 04/21/21 06:59 Body Mass Index 28.5 Chest Chest palpation & inspection: normal inspection of the chest Resp Effort & Inspection: able to speak in complete sentences Auscultation: clear to auscultation bilaterally Cardio Jugular venous distension: no JVD Extrem General: No edema Results Lab Results Result Diagrams: 04/21/21 05:58 04/21/21 05:58 Lab results: Chemistry 04/20/21 04/21/21 19:28 05:58 Sodium 136 137 Potassium 4.2 3.8 Carbon Dioxide 17 L 16 L BUN 69 H 62 H Creatinine 10.94 H* 6.24 H* Calcium 8.8 7.7 L D Hematology 04/20/21 04/21/21 19:28 05:58 WBC 8.5 6.7 Hgb 12.8 L 10.5 L Plt Count 196 161 Urinalysis 04/20/21 22:25 Urine Color YELLOW Urine Appearance CLEAR Urine pH 5.5 Ur Specific [place] 1.025 Urine Protein 1+ H Urine Glucose (UA) NEG Urine Ketones NEG Urine Blood 3+ H Urine Nitrite NEG Ur Leukocyte Esterase NEG Urine RBC 1-4 Urine WBC 0-2 Ur Squamous Epith Cells TRACE Hyaline Casts 0-2 Assessment and Plan (1) Acute renal failure due to rhabdomyolysis: Status: Acute 1. Non-Oliguric ERIN: c/w multifact ATN from Rhabdo and cocaine; cocaine can cause vasostriction and renal ischemia--given decr Scr with IVF c/w component of hypovolemia as well he is on karson-I which may also interfere with renal perfusion in setting of hypovol 2. CKD 3: bsl SCr 1.5 3. H/O HTN 4. H/O CHF: compesated 5. Rhabdo: d/t cocoaine 6. Kidney stones non-obs--should not be playing a role in ERIN 7. NAGMA 8. Cocaine use REC: cont IVF and swithc to IV NaHCO3; follow UOP reanl func; d/c NSAIDs; track CPK and Scr will follow with team Procedures Date of Service Date of Service: 04/21/21
--- NOTE | 2021-04-21 11:16 | MHC.CM.PN ---
met with pt whp lives with his mother..pt will have transportaon home and had no services prior to admisison
--- NOTE | 2021-04-21 11:45 | P.PNIM_ITS ---
Subjective Subjective Date of Service: 04/21/21 Interval History: Seem in f/u for erin, rhabdo, erin and rehabdo better Review of Systems Gen: no fever Resp: no sob, no cough CV: no chest, no JAFFE, no leg edema GI: No n/v, no abd pain Neuro: No confusion Physical Exam Vital Signs: Vital Signs: Last Vital Signs Temp 98 F 04/21/21 10:59 Pulse 81 04/21/21 10:59 Resp 20 04/21/21 10:59 BP 140/86 H 04/21/21 10:59 Pulse Ox 98 04/21/21 10:59 Body Mass Index 28.5 Const: Other: General: AO X 3, no acute distress Resp: CTA bilateral CVS: S1,S2,RRR GI: +BS, NT, no distention Skin: No rash Neuro: motor grossly intact Psych: appropriate affect General: cooperative and no acute distress Orientation/consciousness: oriented to person, oriented to place and patient oriented x3 Eyes: Pupils: Equal, round and reactive pupils present Resp: Effort & Inspection: able to speak in complete sentences Ausc ultation: clear to auscultation bilaterally Cardio: Rate: regular rate Rhythm: regular rhythm Heart sounds: S1 normal heart sound present, S2 normal heart sound present and no murmurs GI: Palpation (GI): Soft to palpation and nontender Skin: General skin exam: no rashes or lesions noted Neuro: General: oriented to person, oriented to place and patient oriented x3 Cranial nerves: Yes CN's II-XII intact bilaterally and Yes Equal, round and reactive pupils present Cognition (Neuro): normal cognition Motor exam (neuro): 5/5 motor strength present throughout Extrem: Other: Left lower extremity heel has entry points with no evidence of significant infection, mildly tender and swollen with minimal erythema and no warmth. General: No edema Psych: Appearance: grossly normal Objective Data Current Medications Generic Name Dose Route Start Last Admin Trade Name Freq PRN Reason Stop Dose Admin Acetaminophen 650 mg 04/20/21 23:40 04/21/21 05:02 Acetaminophen 325 Mg Tablet PO 650 mg Q6H PRN Administration Pain, Mild (Pain Scale 1-3) Atorvastatin Calcium 40 mg 04/21/21 21:00 Atorvastatin Calcium 40 Mg Tablet PO BEDTIME [facility] Carvedilol 6.25 mg 04/21/21 09:00 04/21/21 09:03 Carvedilol 6.25 Mg Tablet PO 6.25 mg BID GHADA Administration Protocol Gabapentin 300 mg 04/21/21 09:00 Gabapentin 300 Mg Capsule PO TID [facility]ADA Heparin Sodium (Porcine) 5,000 unit 04/20/21 23:45 04/21/21 01:55 Heparin Sodium,Porcine 5,000 Unit/Ml Vial SUBCUT 5,000 unit Q12H [facility]ADA Administration Ceftriaxone Sodium 1 gm/ 50 mls @ 100 mls/hr 04/21/21 20:00 Sodium Chloride IV Q24H [facility]ADA Lactated Ringer's 1,000 mls @ 100 mls/hr 04/20/21 23:45 04/21/21 01:49 Lr IVCONT 100 mls/hr .Q10H [facility]ADA Administration Lidocaine 1 patch 04/21/21 09:00 04/21/21 09:04 Lidocaine 4 % Patch Adh..Patch TRANSDERMA 1 patch DAILY [facility]ADA Administration Omeprazole 40 mg 04/21/21 09:00 04/21/21 09:04 Omeprazole 40 Mg Capsule.Dr PO 40 mg DAILY [facility]ADA Administration Ondansetron HCl 4 mg 04/20/21 23:40 Ondansetron Hcl 4 Mg/2 Ml Vial IVPUSH Q8H PRN Nausea and Vomiting Pharmacy Consult 1 each 04/20/21 20:52 Consult Rx Perform Med Rec MISCELLANE ONCE PRN Consult order Quetiapine Fumarate 300 mg 04/21/21 09:00 04/21/21 09:13 Quetiapine Fumarate 300 Mg Tablet PO Not Given DAILY [facility] Sodium Bicarbonate 650 mg 04/21/21 11:00 Sodium Bicarbonate 650 Mg Tablet PO TID [facility] Sodium Chloride 3 ml 04/21/21 00:00 04/21/21 09:05 0.9 % Sodium Chloride Flush 3 Ml Syringe IVFLUSH 3 ml QSHIFT [facility]ADA Administration Tramadol HCl 50 mg 04/21/21 21:00 Tramadol Hcl 50 Mg Tablet PO BEDTIME [facility] Trazodone HCl 100 mg 04/20/21 23:45 04/21/21 01:57 Trazodone Hcl 100 Mg Tablet PO Not Given BEDTIME [facility] Labs CBC & Chem 7: 04/21/21 05:58 04/21/21 05:58 Assessment and Plan (1) Acute renal failure due to rhabdomyolysis: Status: Acute Assessment and Plan: 45-year-old male with past medical history of cardiomyopathy, hypertension, among others who presents the hospital with complaints of left heel pain after heel injury found to have significant ERIN # acute kidney injury on CKD Creatine 6 down from 10 - patient has significant elevation in his creatinine from 1.51 about a year and half ago to 10.9 today - use cocaine few days ago therefore most likely precipitating factor - UA negative, no evidence of obstructive uropathy on CT abdomen - no hyperkalemia, no uremia - will start him on IV fluids - follow BMP - will hold nephrotoxic meds - nephrology following, Continue IVF and bicab replacement # rhabdomyolysis - most likely secondary to recurrent falls - patient reports he has had 5 falls within the last 3 days - CPK is elevated - will start him on IV fluids - CPK 4K down from 7K # Sore of the heel ? cellulitis-- don't really # syncope - possibly secondary to hypertension - patient reports 5 episodes of fall and 1 of them he syncopized - reports significant dizziness prior to each fall and syncopal episode - on arrival patient had significant hypotension - no EKG changes - at this time will admit to telemetry - monitor # cocaine abuse - used 1 episode 4 days ago which is most likely the cause of his ERIN - discussed extensively abstinence given his history of CAD as well as CHF and now kidney failureand patient understands. CARE consult # elevated troponin - denies any chest pain - resolved with no delta - no EKG changes suggestive of ACS -likely from renal failure # hypotension--likely from dehdyration, hypovolemia, resolved with IVF # Hemorrohoid--hemorhoic cream, - monitor DVT prophylaxis: heparin Quality Stroke Does the patient have a stroke diagnosis?: No VTE Prior VTE?: No VTE Risk Level:: Medical - moderate - high VTE Device Contraindication: Treatment Not Indicated VTE Drug Contraindication: N/A - Med Ordered
[2021-04-21] MEDS: oxyCODONE HCl Immed Release 5 MG TABLET PO (11:56)
[2021-04-21] MEDS: Sodium Bicarbonate 650 MG TABLET PO ×3 (11:56→20:45)
--- NOTE | 2021-04-21 16:28 | MHC.RECOVSUP ---
Recovery Support note: Patient is a 45 year old [place]an speaking male who presented to [facility] ED due to syncope and was medically admitted. This chart writer met with patient in - to discuss his cocaine use and recovery supports. Patient acknowledges that using cocaine was a mistake and that it is the root cause of the numerous medical issues he is now dealing with. Patient reports he plans to never use again, stating he is too old and that he never wants to feel this way again. Patient reports he used while celebrating his [id number] birthday and that he immediately regretted it. Patient states he spoke to his [id number] and told him that he has a hard time saying no and that he never wants to use again, instructing his epgryxh-zc-jol to never suggest using again. Patient reports he has two other friends who don't use and that he cut everyone out of his life that uses. Patient reports he used one gram of cocaine. Patient states he had not used for two years, and prior to that had not used for five years. Patient reports he was previously attending three meetings a week and found them helpful. Patient reports he went to [facility] ten years ago to get help for his substance use and mental health. Discussed [facility] and attending meetings. Patient expressed interest in going to [facility] and accepted information on this support.
[2021-04-21] MEDS: Cocoa Butter/Zinc Oxide SUPP.RECT 1 SUPP PR (16:31)
[2021-04-21] MEDS: cefTRIAXone sodium 1 GM in 0.9 % Sodium Chloride 50 ML IV (19:21)
[2021-04-21] MEDS: Atorvastatin Calcium 40 MG TABLET PO (20:44)
[2021-04-21] MEDS: traMADoL HCL 50 MG TABLET PO (20:44)
[2021-04-21] MEDS: traZODone HCL 100 MG TABLET PO (20:45)
[2021-04-21] MEDS: QUEtiapine Fumarate 300 MG TABLET PO (21:54)
[2021-04-21 23:12] LABS: Anion Gap 12 (12-20); Carbon Dioxide 21 mmol/L (22-29); Chloride 112 mmol/L (96-108); Potassium 3.9 mmol/L (3.3-5.1); Sodium 141 mmol/L (135-145)
[2021-04-22] VITALS (9 sets, daily range): BP systolic 148–190; BP diastolic 72–130; PULSE 73–88; RESP 18–20; TEMP 36.2–37; O2SAT 97–98
[2021-04-22] MEDS: Lactated Ringers 1,000 ML 100 ML IVCONT ×2 (03:42→16:40)
[2021-04-22] MEDS: Sodium Bicarbonate 650 MG TABLET PO ×2 (08:38→14:11)
[2021-04-22] MEDS: carvediloL 6.25 MG TABLET PO ×2 (08:39→19:56)
[2021-04-22] MEDS: Omeprazole 40 MG CAPSULE.DR PO (08:39)
[2021-04-22] MEDS: oxyCODONE HCl Immed Release 5 MG TABLET PO ×3 (08:43→23:11)
[2021-04-22 09:28] LABS: Anion Gap 10 (12-20); Blood Urea Nitrogen 32 mg/dL (9-16); Calcium 8.3 mg/dL (8.4-10.2); Carbon Dioxide 24 mmol/L (22-29); Chloride 112 mmol/L (96-108); Creatinine Clr Calc Pharmacy 67.5; Estimated Glomerular Filt Rate 47; Glucose Random 92 mg/dL (60-115); Potassium 4.2 mmol/L (3.3-5.1); Sodium 142 mmol/L (135-145)
[2021-04-22] MEDS: amLODIPine Besylate 5 MG TABLET PO (09:53)
--- NOTE | 2021-04-22 10:31 | P.PNNP_ITS ---
Subjective Subjective Date of Service: 04/22/21 Principal diagnosis: ERIN Interval history: Seem in f/u for erin, rhabdo cont decr SCr Physical Exam Vital Signs: Vital Signs: Last Vital Signs Temp 98.5 F 04/22/21 08:00 Pulse 79 04/22/21 08:00 Resp 20 04/22/21 08:00 BP 184/110 H 04/22/21 08:00 Pulse Ox 97 04/22/21 08:00 Body Mass Index 28.5 Chest: Chest palpation & inspection: normal inspection of the chest Resp: Effort & Inspection: able to speak in complete sentences Auscultatio n: clear to auscultation bilaterally Cardio: Jugular venous distension: no JVD Extrem: General: No edema Objective Data Labs CBC & Chem 7: 04/21/21 05:58 04/22/21 08:27 Labs: Laboratory Results - last 24 hr 04/21/21 04/22/21 22:23 08:27 Sodium 141 142 Potassium 3.9 4.2 Chloride 112 H 112 H Carbon Dioxide 21 L 24 Anion Gap 12 10 L BUN 32 H Creatinine 1.59 H Estim Creat Clear Calc 67.5 Estimated GFR 47 Random Glucose 92 D Calcium 8.3 L D Total Creatine Kinase 2211 H D Microbiology Microbiology Results: Microbiology 04/20/21 19:27 Blood - Venous Blood Culture - Preliminary No growth after 24 hours. 04/20/21 19:27 Blood - Venous Blood Culture - Preliminary No growth after 24 hours. Procedures Date of Service Date of Service: 04/22/21 Assessment & Plan Assessment and plan (1) Acute renal failure due to rhabdomyolysis: Status: Acute Assessment and Plan: 1. Non-Oliguric ERIN: resolving ERIN w decr SCr noted; c/w multifact ATN from Rhabdo and cocaine; cocaine can cause vasostriction and renal ischemia--given decr Scr with IVF c/w component of hypovolemia as well he is on karson-I which may also interfere with renal perfusion in setting of hypovol 2. CKD 3: bsl SCr 1.5 3. H/O HTN: and now incr BP 4. H/O CHF: compensated 5. Rhabdo: d/t cocoaine 6. Kidney stones non-obs--should not be playing a role in ERIN 7. NAGMA: resolved on PO NaHCO3 8. Cocaine use REC: d/cIVF; norvasc satrted and may need to incr; ok to r/s lisinopril tomorrow if SC < 1.6; follow UOP renal func; d/c NSAIDs will follow with team Time Spent With Patient Time: Total time spent is greater than 50% in coordination of care (as documented) at patient's floor/unit and/or counseling patient: Progress Note: Quality Stroke Does the patient have a stroke diagnosis?: No
[2021-04-22] MEDS: Heparin Sodium,Porcine 5,000 UNIT/ML VIAL 5000 UNIT SUBCUT ×2 (11:58→23:11)
--- NOTE | 2021-04-22 13:08 | HO.PM.IMPN ---
Subjective Subjective Date of Service: 04/22/21 Interval History: Seem in f/u for erin, rhabdo, erin and rehabdo better, feels more comfortable with pain Review of Systems Gen: no fever Resp: no sob, no cough CV: no chest, no JAFFE, no leg edema GI: No n/v, no abd pain Neuro: No confusion Constitutional General: AO X 3, no acute distress Resp: CTA bilateral CVS: S1,S2,RRR GI: +BS, NT, no distention Skin: No rash Neuro: motor grossly intact Psych: appropriate affect Physical Exam Vital Signs: Vital Signs: Last Vital Signs Temp 98.5 F 04/22/21 11:30 Pulse 73 04/22/21 11:30 Resp 19 04/22/21 11:30 BP 180/110 H 04/22/21 11:30 Pulse Ox 98 04/22/21 11:30 Body Mass Index 28.5 Const: Other: General: AO X 3, no acute distress Resp: CTA bilateral CVS: S1,S2,RRR GI: +BS, NT, no distention Skin: No rash Neuro: motor grossly intact Psych: appropriate affect Objective Data Current Medications Generic Name Dose Route Start Last Admin Trade Name Freq PRN Reason Stop Dose Admin Acetaminophen 650 mg 04/20/21 23:40 04/21/21 19:21 Acetaminophen 325 Mg Tablet PO 650 mg Q6H PRN Administration Pain, Mild (Pain Scale 1-3) Amlodipine Besylate 5 mg 04/22/21 09:30 04/22/21 09:53 Amlodipine Besylate 5 Mg Tablet PO 5 mg DAILY [facility]ADA Administration Protocol Atorvastatin Calcium 40 mg 04/21/21 21:00 04/21/21 20:44 Atorvastatin Calcium 40 Mg Tablet PO 40 mg BEDTIME [facility] Administration Carvedilol 6.25 mg 04/21/21 09:00 04/22/21 08:39 Carvedilol 6.25 Mg Tablet PO 6.25 mg BID GHADA Administration Protocol [place] Butter/Zinc Oxide 1 supp 04/21/21 11:43 04/21/21 16:31 [place] Butter/Zinc Oxide Supp.Rect MT 1 supp BID PRN Administration Hemorrhoids Gabapentin 300 mg 04/22/21 15:00 Gabapentin 300 Mg Capsule PO TID [facility] Heparin Sodium (Porcine) 5,000 unit 04/20/21 23:45 04/22/21 11:58 Heparin Sodium,Porcine 5,000 Unit/Ml Vial SUBCUT 5,000 unit Q12H [facility]ADA Administration Ceftriaxone Sodium 1 gm/ 50 mls @ 100 mls/hr 04/21/21 20:00 04/21/21 19:58 Sodium Chloride IV Infused Q24H GHADA Infusion Lactated Ringer's 1,000 mls @ 100 mls/hr 04/20/21 23:45 04/22/21 03:42 Lr IVCONT 100 mls/hr .Q10H [facility]ADA Administration Lidocaine 1 patch 04/21/21 09:00 04/22/21 08:39 Lidocaine 4 % Patch Adh..Patch TRANSDERMA Not Given DAILY [facility] Omeprazole 40 mg 04/21/21 09:00 04/22/21 08:39 Omeprazole 40 Mg Capsule.Dr PO 40 mg DAILY [facility]ADA Administration Ondansetron HCl 4 mg 04/20/21 23:40 Ondansetron Hcl 4 Mg/2 Ml Vial IVPUSH Q8H PRN Nausea and Vomiting Oxycodone HCl 5 mg 04/21/21 11:43 04/22/21 08:43 Oxycodone Hcl Immed Release 5 Mg Tablet PO 5 mg Q6H PRN Administration Pain, Severe (Pain Scale 7-10) Pharmacy Consult 1 each 04/20/21 20:52 Consult Rx Perform Med Rec MISCELLANE ONCE PRN Consult order Quetiapine Fumarate 300 mg 04/22/21 21:00 Quetiapine Fumarate 300 Mg Tablet PO BEDTIME [facility] Sodium Bicarbonate 650 mg 04/21/21 11:00 04/22/21 08:38 Sodium Bicarbonate 650 Mg Tablet PO 650 mg TID [facility]ADA Administration Sodium Chloride 3 ml 04/21/21 00:00 04/22/21 07:19 0.9 % Sodium Chloride Flush 3 Ml Syringe IVFLUSH Not Given QSHIFT [facility]ADA Tramadol HCl 50 mg 04/21/21 21:00 04/21/21 20:44 Tramadol Hcl 50 Mg Tablet PO 50 mg BEDTIME [facility] Administration Trazodone HCl 100 mg 04/20/21 23:45 04/21/21 20:45 Trazodone Hcl 100 Mg Tablet PO 100 mg BEDTIME [facility] Administration Labs CBC & Chem 7: 04/21/21 05:58 04/22/21 08:27 Labs: Laboratory Results - last 24 hr 04/21/21 04/22/21 22:23 08:27 Anion Gap 12 10 L Estim Creat Clear Calc 67.5 Estimated GFR 47 Random Glucose 92 D Calcium 8.3 L D Total Creatine Kinase 2211 H D Microbiology Microbiology Results: Microbiology 04/20/21 19:27 Blood Culture - Preliminary Blood - Venous No growth after 24 hours. 04/20/21 19:27 Blood Culture - Preliminary Blood - Venous No growth after 24 hours. Assessment and Plan (1) Acute kidney injury superimposed on CKD: Status: Acute Assessment and Plan: 45-year-old male with past medical history of cardiomyopathy, hypertension, among others who presents the hospital with complaints of left heel pain after heel injury found to have significant ERIN # acute kidney injury on CKD Creatine is down to 1.59 from 10 - use cocaine few days ago therefore most likely precipitating factor - UA negative, no evidence of obstructive uropathy on CT abdomen - no hyperkalemia, no uremia - DC IVF - follow BMP - No nephrotoxic meds - nephrology following, # rhabdomyolysis - most likely secondary to recurrent falls - patient reports he has had 5 falls within the last 3 days - CPK is elevated - will start him on IV fluids - CPK is down to 2k # Sore of the heel ? cellulitis-- don't really think so # syncope - possibly secondary to hypOtension - patient reports 5 episodes of fall and 1 of them he syncopized - reports significant dizziness prior to each fall and syncopal episode - on arrival patient had significant hypotension - no EKG changes - at this time will admit to telemetry - monitor # cocaine abuse - used 1 episode 4 days ago which is most likely the cause of his ERIN - discussed extensively abstinence given his history of CAD as well as CHF and now kidney failureand patient understands. CARE consult # elevated troponin - denies any chest pain - resolved with no delta - no EKG changes suggestive of ACS -likely from renal failure # hypotension--likely from dehdyration, hypovolemia, resolved with IVF # Hemorrohoid--hemorhoic cream, - monitor HTN--BP is now high, restart Norvasc and Lisinopril today, repeat BMP tomorrow and likely dc tomorrow DVT prophylaxis: heparin Quality Stroke Does the patient have a stroke diagnosis?: No VTE Prior VTE?: No VTE Risk Level:: Medical - moderate - high VTE Device Contraindication: Treatment Not Indicated VTE Drug Contraindication: N/A - Med Ordered
[2021-04-22] MEDS: Gabapentin 300 MG CAPSULE PO ×2 (14:11→19:55)
[2021-04-22] MEDS: Cocoa Butter/Zinc Oxide SUPP.RECT 1 SUPP PR (15:38)
[2021-04-22] MEDS: cefTRIAXone sodium 1 GM in 0.9 % Sodium Chloride 50 ML IV (19:55)
[2021-04-22] MEDS: Atorvastatin Calcium 40 MG TABLET PO (19:56)
[2021-04-22] MEDS: traZODone HCL 100 MG TABLET PO (19:56)
[2021-04-22] MEDS: traMADoL HCL 50 MG TABLET PO (19:56)
[2021-04-22] MEDS: QUEtiapine Fumarate 300 MG TABLET PO (19:56)
[2021-04-22] MEDS: Labetalol HCL 100 MG/20 ML VIAL 10 MG IVPUSH (23:12)
[2021-04-23] VITALS: BP 166/92; PULSE 75; RESP 18; O2SAT 97
[2021-04-23] MEDS: Lactated Ringers 1,000 ML 100 ML IVCONT (03:05)
[2021-04-23 03:28] VITALS: BP 142/78; PULSE 77; RESP 18; O2SAT 99
[2021-04-23] MEDS: oxyCODONE HCl Immed Release 5 MG TABLET PO ×2 (06:26→13:03)
[2021-04-23 07:01] LABS: Anion Gap 10 (12-20); Blood Urea Nitrogen 16 mg/dL (9-16); Carbon Dioxide 29 mmol/L (22-29); Chloride 108 mmol/L (96-108); Creatinine Clr Calc Pharmacy 101.3; Estimated Glomerular Filt Rate > 60; Glucose Random 82 mg/dL (60-115); Potassium 4.1 mmol/L (3.3-5.1); Sodium 143 mmol/L (135-145)
[2021-04-23 07:34] VITALS: BP 171/99; PULSE 78; RESP 18; TEMP 36.6; O2SAT 96
[2021-04-23] MEDS: amLODIPine Besylate 5 MG TABLET PO ×2 (08:27→11:30)
[2021-04-23] MEDS: carvediloL 6.25 MG TABLET PO (08:27)
[2021-04-23] MEDS: Gabapentin 300 MG CAPSULE PO (08:27)
[2021-04-23] MEDS: Omeprazole 40 MG CAPSULE.DR PO (08:27)
[2021-04-23] MEDS: Acetaminophen 325 MG TABLET 650 MG PO (08:31)
--- NOTE | 2021-04-23 09:29 | PM.PNNEP ---
Subjective Subjective Date of Service: 04/23/21 Principal diagnosis: ERIN Interval history: Seen and examined, events noted Seem in f/u for erin, rhabdo, erin and rehabdo bettee Physical Exam Vital Signs: Vital Signs: Last Vital Signs Temp 98 F 04/23/21 07:34 Pulse 78 04/23/21 07:34 Resp 18 04/23/21 07:34 BP 171/99 H 04/23/21 07:34 Pulse Ox 96 04/23/21 07:34 Body Mass Index 28.5 Chest: Chest palpation & inspection: normal inspection of the chest Resp: Effort & Inspection: able to speak in complete sentences Auscultation: clear to auscultation bilaterally Cardio: Jugular venous distension: no JVD Extrem: General: No edema Objective Data Labs CBC & Chem 7: 04/21/21 05:58 04/23/21 05:11 Labs: Laboratory Results - last 24 hr 04/23/21 05:11 Sodium 143 Potassium 4.1 Chloride 108 Carbon Dioxide 29 Anion Gap 10 L BUN 16 Creatinine 1.06 Estim Creat Clear Calc 101.3 Estimated GFR > 60 Random Glucose 82 Calcium 8.0 L Microbiology Microbiology Results: Microbiology 04/20/21 19:27 Blood - Venous Blood Culture - Preliminary No growth after 48 hours. 04/20/21 19:27 Blood - Venous Blood Culture - Preliminary No growth after 48 hours. Procedures Date of Service Date of Service: 04/23/21 Assessment & Plan Assessment and plan (1) Acute renal failure due to rhabdomyolysis: Status: Acute Assessment and Plan: 1. Non-Oliguric ERIN: resolved 2. CKD 3: bsl SCr 1.5 3. H/O HTN: and now incr BP 4. H/O CHF: compensated 5. Rhabdo: resolved; d/t cocoaine 6. Kidney stones non-obs--should not be playing a role in ERIN 7. NAGMA: resolved on PO NaHCO3 8. H/O Cocaine use REC: d/cIVF; incr norvasc 10; ok to d/c from renal standpoint with HTN med adjustment as outpt ; I will arrnge f/u with me in 1 month re risk of development of CKD and ongoing HTN management issues will follow with team Time Spent With Patient Time: Total time spent is greater than 50% in coordination of care (as documented) at patient's floor/unit and/or counseling patient: Progress Note: Quality Stroke Does the patient have a stroke diagnosis?: No
--- NOTE | 2021-04-23 11:04 | PM.DS ---
DS: Providers Provider Date of Service: 04/23/21 Date of admission: 04/20/21 23:39 Primary care physician: Anand Aguilar MD Consults: 04/20/21 23:40 Consult to Nephrology Routine Consulting Provider: Abebe Miller Reason for consultation: ERIN on CKD Has provider been notified: No 04/21/21 12:05 Consult to Care Team Routine Comment: Reason for consultation: Cocaine use DS: Diagnosis Discharge Diagnosis (1) Acute renal failure due to rhabdomyolysis: Status: Resolved DS: Summary Hospital Course Hospital Course: Chief Complaint: Heel pain This this is a 45-year-old male with past medical history of bipolar disorder, CHF, CKD, cardiomyopathy, CAD, HTN, anxiety and depression, who presents to the hospital with complaints of left heel pain.? Patient reports that he went fishing 4 days ago, and stepped on a in Old fishing hook, he had pain in his heel but did not think much of it, today he felt that his heel was more swollen and therefore decided to come to the ED for further evaluation.? Reports the pain is 1/10, nonradiating, he noticed redness and mild swelling. .? Patient reports suprapubic pain as well as bilateral flank pain.? He denies? any fever or chills, denies abdominal pain, but reports that this afternoon he started having urinary retention with no urgency or dysuria.? He reports no chest pain, no shortness of breath, no abdominal pain nausea or vomiting, no diarrhea constipation, no weakness numbness or tingling. He also reports that he has had about 5 falls in the past 3 days due to dizziness.? He had 1 syncopal episode that resolved after less than a minute.? Denies any palpitations chest pain but reports significant dizziness prior to him falling. Patient admits using cocaine as well 4 days ago but reports that he has not used cocaine in many years prior to that. On arrival to the ED patient hemodynamically stable with a temp of 98.9?, heart rate of 94, respiratory rate of 16, blood pressure was found to be 84/53, satting 99% on room air 8.5, hemoglobin of 12.8 sodium of 136, potassium 4.2, BUN of 69, with a creatinine of 10.9 for as compared to 19 and 1.51 in 09/2019, CPK of 7206, and an elevated troponin of 61.8, UA negative for any infection, positive for 1+ protein and urine blood with 1-4 RBC.? UDS positive for cocaine and marijuana. CT of the abdomen shows bilateral nephrolithiasis without ureterolithiasis, and findings of obstructive uropathy.? There is also cholelithiasis without evidence of acute cholecystitis, Of abscess or osteomyelitis, no radiopaque foreign body, mild fat stranding with the plantar heel fat pad and plantar to the 5th metatarsal head. Nephrology was consulted, patient will be given IV fluids and followed in [facility]: # acute kidney injury on CKD. Initial creatinine was 10.9 and after hydration it has come down to 1.06 today, this is likely due to pre renal azotemia, hypotension, and possible NSAID and Lisinopril use. He had CT that showed no obstruction. Was seen by Dr. Miller Nephrology and will follow up on outpatient basis for BP meds adjustment. # rhabdomyolysis--likely from falls, cocaine use..Treated with IVF, and CPK level have come down # Sore of the heel from injury from fish hook, treated with IV Ceftriaxone and will discharge with Augmentin, no significant imflamation in the area # syncope--hypotension, under influence with cocaine, no arrythmia, PT eval requested - possibly secondary to hypOtension - patient reports 5 episodes of fall and 1 of them he syncopized - reports significant dizziness prior to each fall and syncopal episode - on arrival patient had significant hypotension - no EKG changes - at this time will admit to telemetry - monitor # cocaine abuse - used 1 episode 4 days ago which is most likely the cause of his ERIN - discussed extensively abstinence given his history of CAD as well as CHF and now kidney failureand patient understands. CARE saw him and advised him, he says he will not use again # elevated troponin-- - denies any chest pain - resolved with no delta - no EKG changes suggestive of ACS -likely from renal failure # hypotension--likely from dehdyration, hypovolemia, resolved with IVF # Hemorrohoid--hemorhoic cream, - monitor HTN--initially BPmeds, were on hold, BP Time Spent with Patient Time attestation: Total time spent providing and/or coordinating discharge services: Discharge coordination time: Greater than 30 minutes Quality: Stroke Does the patient have a stroke diagnosis?: No Physical Exam Vital Signs: Vital Signs: Last Vital Signs Temp 98 F 04/23/21 07:34 Pulse 78 04/23/21 07:34 Resp 18 04/23/21 07:34 BP 171/99 H 04/23/21 07:34 Pulse Ox 96 04/23/21 07:34 Body Mass Index 28.5 DS: Data Data Completed and Pending Labs on day of discharge: Laboratory Results - last 24 hr 04/23/21 05:11 Sodium 143 Potassium 4.1 Chloride 108 Carbon Dioxide 29 Anion Gap 10 L BUN 16 Creatinine 1.06 Estim Creat Clear Calc 101.3 Estimated GFR > 60 Random Glucose 82 Calcium 8.0 L Preliminary micro results at discharge 04/20/21 19:27 Blood Culture - Preliminary Blood - Venous No growth after 48 hours. 04/20/21 19:27 Blood Culture - Preliminary Blood - Venous No growth after 48 hours. Discharge Plan Discharge Anticipated Discharge Date/Time: 04/23/21 10:57 Patient Disposition: Home, Self-Care Discharge Diagnosis: ERIN Referrals: Anand Aguilar MD [Primary Care Provider] - 1 Week (Your doctor's office should be in contact with you to schedule a follow up appointment.) Discharge Medications: New amoxicillin-pot clavulanate [Augmentin] 875-125 mg tablet 1 tab PO BID Qty: 10 RF: 0 amlodipine 5 mg Tablet 10 mg PO DAILY Qty: 30 RF: 0 Continued omeprazole 40 mg capsule,delayed release(DR/EC) 40 mg PO DAILY 90 Days Qty: 90 RF: 0 lidocaine 5 % adhesive patch,medicated 1 patch topical DAILY 30 Days Qty: 30 RF: 0 tramadol 50 mg tablet 50 mg PO BEDTIME 10 Days Qty: 10 RF: 0 carvedilol 6.25 mg tablet 6.25 mg PO BID Qty: 180 RF: 0 gabapentin 300 mg capsule 300 mg PO TID RF: 0 quetiapine [Seroquel] 300 mg tablet 300 mg PO DAILY RF: 0 atorvastatin 40 mg tablet 40 mg PO BEDTIME RF: 0 trazodone 100 mg tablet 100 mg PO BEDTIME RF: 0 furosemide [Lasix] 20 mg tablet 20 mg PO DAILY RF: 0 cholecalciferol (vitamin D3) 25 mcg (1,000 unit) capsule 25 mcg PO DAILY RF: 0 lisinopril 20 mg tablet 20 mg PO DAILY RF: 0 Discontinued amlodipine 5 mg tablet 5 mg PO DAILY RF: 0 diclofenac sodium 75 mg tablet,delayed release (DR/EC) 75 mg PO BID 10 Days Qty: 20 RF: 0 Discharge Orders: Discharge Order (Routine); Ordered 04/23/21 Ordered By: Christo Conway Diet: advance to usual diet Activity on Discharge: As tolerated Stand Alone Forms: Patient Portal Discharge page Care Plan Goals: prevent rehospitalization Health Concerns: cocaine use, renal failure, rhabdomylosis Plan of Treatment: avoid cocaine use, take your medications as recommended and follow up with Dr. Miller kidney Doctor Assessment: as above Discharge Date/Time: 04/23/21 13:30
[2021-04-23 11:06] VITALS: BP 163/92; PULSE 74; RESP 18; TEMP 36.6; O2SAT 95
--- NOTE | 2021-04-23 11:23 | MHC.CM.PN ---
Male 45 DX RHABDO ERIN He is discharged to home today . He has had a [facility] consult. He has information provided r/t community resources. He has arranged for family to transport.
[2021-04-23] MEDS: Heparin Sodium,Porcine 5,000 UNIT/ML VIAL 5000 UNIT SUBCUT (11:30)
[2021-04-23 11:45] VITALS: BP 163/92; PULSE 74; O2SAT 95
== END 2021-04-23 13:30 | disposition home or self-care (01) | DRG 816 ==
LOC: HO.ED 23:19 → HO.EDOVER 04-21 00:17 → HO.IMC 04-21 00:28
PROVIDERS: Internal Medicine Nephrology; Admitting Provider Internal Medicine; Emergency Provider Emergency Medicine Emergency Medical Services; PCP Internal Medicine; Visit Provider Internal Medicine
DX: T40.5X1A Poisoning by cocaine, accidental (unintentional), initial encounter (principal); M62.82 Rhabdomyolysis; N17.9 Acute kidney failure, unspecified; I13.0 Hypertensive heart and chronic kidney disease with heart failure and stage 1 through stage 4 chronic kidney disease, or unspecified chronic kidney disease; I50.9 Heart failure, unspecified; N18.30 Chronic kidney disease, stage 3 unspecified; L03.116 Cellulitis of left lower limb; F31.9 Bipolar disorder, unspecified; E86.0 Dehydration; K64.9 Unspecified hemorrhoids; Y92.9 Unspecified place or not applicable; Z20.822 Contact with and (suspected) exposure to COVID-19; R29.6 Repeated falls; Z91.81 History of falling; Z79.899 Other long term (current) drug therapy
CPT/HCPCS: 36415; 71046; 73700; 74176; 80048; 80051; 80053; 80307; 81001; 82550; 83605; 84484; 85025; 85610; 85652; 85730; 86140; 87040; 87635; 90715; 93005; 97161; 99285; J0696

== ENCOUNTER 2022-02-25 12:42 | Outpatient (REF) | payer OTHER, SELFPAY ==
[2022-02-25 14:35] LABS: Alanine Aminotransferase 15 U/L (0-40); Albumin Level 4.1 g/dL (3.5-5.0); Alkaline Phosphatase 73 U/L (39-117); Anion Gap 13 (12-20); Aspartate Amino Transferase 13 U/L (5-37); Bilirubin Total 0.2 mg/dL (0.0-1.0); Blood Urea Nitrogen 26 mg/dL (9-16); Calcium 9.3 mg/dL (8.4-10.2); Carbon Dioxide 24 mmol/L (22-29); Chloride 104 mmol/L (96-108); Estimated Glomerular Filt Rate 52; Glucose Random 71 mg/dL (60-115); Potassium 4.3 mmol/L (3.3-5.1); Sodium 137 mmol/L (135-145); Total Protein 7.3 g/dL (6.5-8.0)
== END 2022-02-25 12:43 | disposition home or self-care (01) ==
LOC: HO.HMGCLDS 12:42
PROVIDERS: PCP Internal Medicine; Visit Provider Internal Medicine
DX: I10 Essential (primary) hypertension (principal); E78.9 Disorder of lipoprotein metabolism, unspecified; F31.9 Bipolar disorder, unspecified; K21.9 Gastro-esophageal reflux disease without esophagitis; Z91.19 Patient's noncompliance with other medical treatment and regimen
CPT/HCPCS: 36415; 80053

== ENCOUNTER 2022-10-28 13:53 | Outpatient (REF) | payer OTHER, SELFPAY ==
[2022-10-28 16:37] LABS: MANUAL DIFF FLAG NO
[2022-10-28 16:43] LABS: Basophils Absolute Auto 0.1 X10*3/uL (0.0-0.2); Eosinophils Absolute Auto 0.2 X10*3/uL (0.0-0.4); Eosinophils Percent Auto 4.6 % (0-4); Hematocrit 40.9 % (42.0-52.0); Hemoglobin 12.9 g/dl (14.0-18.0); Imm Gran Abs Auto 0.01 X10*3/uL (0.00-0.03); Imm Gran Pct Auto 0.2 % (0.0-0.4); Lymphocytes Absolute Auto 1.9 X10*3/uL (1.2-4.9); Lymphocytes Percent Auto 36.9 % (20-40); Mean Corpuscular HGB Conc 31.5 g/dl (31.0-36.0); Mean Corpuscular Hemoglobin 27.7 pg (27.0-33.0); Mean Platelet Volume 9.3 fL (9.4-12.4); Monocytes Absolute Auto 0.5 X10*3/uL (0.1-1.2); Monocytes Percent Auto 10.3 % (2-11); Neutrophils Absolute Auto 2.4 x10*3/uL (2.0-8.3); Platelet Count 305 X10*3/uL (160-400); Red Blood Count 4.65 X10*6/uL (4.60-5.80); Red Cell Distribution Width 13.5 % (11.0-16.0)
[2022-10-28 17:00] LABS: Alanine Aminotransferase 13 U/L (0-40); Albumin Level 4.2 g/dL (3.5-5.0); Alkaline Phosphatase 72 U/L (39-117); Anion Gap 13 (12-20); Aspartate Amino Transferase 17 U/L (5-37); Bilirubin Total 0.6 mg/dL (0.0-1.0); Blood Urea Nitrogen 15 mg/dL (9-16); Calcium 9.6 mg/dL (8.4-10.2); Carbon Dioxide 26 mmol/L (22-29); Chloride 106 mmol/L (96-108); Estimated Glomerular Filt Rate 56; Glucose Random 95 mg/dL (60-115); Potassium 4.3 mmol/L (3.3-5.1); Sodium 141 mmol/L (135-145)
[2022-10-28 17:11] LABS: TSH reflex Free T4 0.76 uIU/mL (0.32-4.0)
[2022-10-29 05:48] LABS: LDL Cholesterol Direct 89 mg/dL (<100)
== END 2022-10-28 13:54 | disposition home or self-care (01) ==
LOC: HO.HMGCLDS 13:53
PROVIDERS: Visit Provider Internal Medicine
DX: E78.9 Disorder of lipoprotein metabolism, unspecified (principal); F31.9 Bipolar disorder, unspecified; K21.9 Gastro-esophageal reflux disease without esophagitis; I10 Essential (primary) hypertension
CPT/HCPCS: 36415; 80053; 83721; 84443; 85025

== ENCOUNTER 2023-08-24 12:08 | Outpatient (AMB) | payer OTHER, SELFPAY ==
[2023-08-24 12:12] VITALS: BP 128/86; PULSE 98; O2SAT 98; BMI 28.1
--- NOTE | 2023-08-24 12:12 | A.OFFPC_ITS ---
Vital Signs 08/24/23 12:12 Height 5 ft 11 in Weight 201 lb 8 oz BMI 28.1 BP 128/86 Blood Pressure Location Lt brachial Position Sitting Pulse 98 Pulse Source Pulse Oximeter Pulse Oximetry (%) 98 Oxygen Delivery Method Room Air Intake Visit Reasons: Overdue Follow Up~ Allergies No Known Allergies [No Known Allergies*] Allergy (Verified 08/24/23 12:15) bees Allergy (Unknown, Uncoded 10/27/22 14:02) swelling and difficulty breathing Medication List - Last Reconciled 08/24/23 by Anand Aguilar MD amlodipine 10 mg See Protocol PO DAILY 90 days atorvastatin 40 mg PO BEDTIME 90 days buspirone 10 mg PO TID carvedilol 6.25 mg PO BID cholecalciferol (vitamin D3) 25 mcg PO DAILY furosemide (Lasix) 20 mg PO DAILY gabapentin 300 mg PO TID lidocaine 5% 1 patch topical DAILY 30 days lisinopril 20 mg PO DAILY 90 days omeprazole 40 mg PO DAILY 90 days quetiapine (Seroquel) 300 mg PO DAILY trazodone 100 mg PO BEDTIME Tobacco use date assessed: 08/24/23 Dental Screening Dental Screen Date: 08/24/23 Did you have a dental visit in the last 12 months?: No Did you have a dental problem in the last 6 months where you did not have access to dental care?: No Was dental information given to patient?: No HPI Overdue Follow Up~ HPI Details Patient is 48-year-old gentleman who was last seen early this year came in for his appointment Patient has missed follow-up appointment Patient have a history of missing follow-up appointments before as well. He has started using cocaine again, says that only twice since he has seen last Patient is seeing psychiatrist for his bipolar disorder and is taking psychiatric medications through them. Last telephone visit was 5 months ago he tells me Patient have a history of nonischemic cardiomyopathy with ejection fraction of 20% however I do not see that he is following up with Cardiology. He does have a prescription of Lasix which he takes every now and then Patient says that last week he had a chest pain and he took Lasix and got better. We did the EKG today which does not show any acute findings, patient does have baseline abnormalities. Labs are due Hypertension: Blood pressure is stable he has seen Nephrology once in 2020 patient have stage III nephropathy Lipid disorder: Continue atorvastatin 40 mg he is to have labs done today. GERD is stable with omeprazole, however complaining of yellow frothy vomiting twice a week He is 48 years old and never had colonoscopy, I am booking appointment with gastroenterology to be evaluated for vomiting as well as for possible colonoscopy Medication from this office are omeprazole , lisinopril 20 mg amlodipine 10 mg carvedilol 6.25 mg .? And atorvastatin 40 mg Follow-up 3 months COUNTS INCLUDE 234 BEDS AT THE [facility] Medical History CKD (chronic kidney disease) stage 3, GFR 30-59 ml/min Cardiomyopathy Bipolar 1 disorder CHF (congestive heart failure) Family History Father No problems noted. Mother No problems noted. 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 1. Little interest or pleasure in doing things: not at all 2. Feeling down, depressed, or hopeless: not at all 3. Trouble falling or staying asleep, or sleeping too much: not at all 4. Feeling tired or having little energy: several days 5. Poor appetite or overeating: not at all 6. Feeling bad about yourself - or that you are a failure or have let yourself or your family down: not at all 7. Trouble concentrating on things, such as reading the newspaper or watching television: not at all 8. Moving or speaking so slowly that other people could have noticed. Or the opposite - being so fidgety or restless that you have been moving around a lot more than usual: not at all 9. Thoughts that you would be better off or of hurting yourself in some way: not at all Total score: 1 Depression Screening Interpretation: Negative Depression Screening Done: Yes [id number] - PHQ-9 Billing: Yes Source: Developed by Drs. Ricky Cárdenas, Doreen Cardona, Jl Pedro and colleagues, with an educational keith from [employer]. Thrive Questionnaire Date Thrive assessed: 10/27/22 AUDIT C Alcohol Use Questionnaire (AUDIT-C) 1. How often do you have a drink containing alcohol?: Monthly or less 2. How many drinks containing alcohol do you have on a typical day when you are drinking?: 1 or 2 3. How often do you have six or more drinks on one occasion?: Never Total Score: 1 Score Reviewed/Action Taken: Yes HAMZAH-7 AMB Questionnaire HAMZAH-7 Date HAMZAH - 7 assessed: 08/24/23 Feeling nervous, anxious, or on edge: 0 = Not at all Not being able to stop or control worryin = Not at all Worrying too much about different things: 0 = Not at all Trouble relaxin = Not at all Being so restless that it is hard to sit still: 0 = Not at all Becoming easily annoyed or irritable: 0 = Not at all Feeling afraid as if something awful might happen: 0 = Not at all Total HAMZAH-7 score (0-4 normal; 5-9 mild; 10-14 moderate; 15-21 severe): 0 Source: Developed by Drs. Ricky Cárdenas, Doreen Cardona, Jl Pedro and colleagues, with an educational keith from [employer]. HAZMAH-7 Assessment Billing HAMZAH-7 Assessment Tool: HAMZAH-7 Assessment 65518 Review of Systems Const Denies chills and Denies fever(s) ENT Denies epistaxis and Denies nasal discharge Resp Denies chest congestion, Denies cough and Denies hemoptysis GI Denies diarrhea and Denies nausea Skin/Breast Denies rash Neuro Reports no additional complaints Psych Reports no additional complaints Endo Reports no additional complaints Physical exam (Primary Care) Vital Signs: Last Vital Signs Pulse 98 08/24/23 12:12 BP 128/86 08/24/23 12:12 Pulse Ox 98 08/24/23 12:12 Oxygen Delivery Method Room Air 12/05/23 12:12 BMI result Body Mass Index 28.1 Tobacco/Smoking Status: Tobacco use Status Tobacco use date assessed 08/24/23 08/24/23 12:16 Patient Tobacco Use Status Never used Tobacco 08/24/23 12:16 e-Cigarette/Vaping Use Never Used 08/24/23 12:16 PHQ-9: PHQ-9 Score PHQ-9: Total score 1 08/24/23 13:09 Depression Screening Interpretation: Negative Thrive Assessment: Date of Thrive Assessment Date Thrive assessed 10/27/22 08/24/23 12:16 Const General: cooperative, comfortable and no acute distress Orientation/consciousness: patient oriented x3 HENMT Head: Yes normocephalic Eyes General: appearance normal, both eyes and all related structures Neck Neck: Yes supple Resp Effort & Inspection: normal respiratory effort, no cough and no stridor Cardio Rhythm: regular rhythm Heart sounds: S1 normal heart sound present and S2 normal heart sound present Skin General skin exam: turgor normal Neuro General: patient oriented x3, tone normal and moves all extremities Extrem Right lower extremity: no edema Left lower extremity: no edema Office Procedures EKG [id number], Complete Assessment and Plan Assessment & Plan (1) Chest pain: Code(s): R07.9 - Chest pain, unspecified Qualifiers: Chest pain type: precordial pain Qualified Code(s): R07.2 - Precordial pain (2) Cardiomyopathy: Code(s): I42.9 - Cardiomyopathy, unspecified Qualifiers: Cardiomyopathy type: due to drug Qualified Code(s): I42.7 - Cardiomyopathy due to drug and external agent (3) Hypertension, essential: Code(s): I10 - Essential (primary) hypertension (4) Cocaine abuse: Code(s): F14.10 - Cocaine abuse, uncomplicated (5) CKD (chronic kidney disease) stage 3, GFR 30-59 ml/min: Code(s): N18.30 - Chronic kidney disease, stage 3 unspecified Qualifiers: Chronic kidney disease stage 3 subtype: stage 3a (GFR 45-59) Qualified Code(s): N18.31 - Chronic kidney disease, stage 3a (6) Bipolar 1 disorder: Code(s): F31.9 - Bipolar disorder, unspecified (7) Chronic GERD: Code(s): K21.9 - Gastro-esophageal reflux disease without esophagitis (8) Lipid disorder: Code(s): E78.9 - Disorder of lipoprotein metabolism, unspecified (9) Recurrent vomiting: Code(s): R11.10 - Vomiting, unspecified Plan Patient is 48-year-old gentleman who was last seen early this year came in for his appointment Patient has missed follow-up appointment Patient have a history of missing follow-up appointments before as well. He has started using cocaine again, says that only twice since he has seen last Patient is seeing psychiatrist for his bipolar disorder and is taking psychiatric medications through them. Last telephone visit was 5 months ago he tells me Patient have a history of nonischemic cardiomyopathy with ejection fraction of 20% however I do not see that he is following up with Cardiology. He does have a prescription of Lasix which he takes every now and then Patient says that last week he had a chest pain and he took Lasix and got better. We did the EKG today which does not show any acute findings, patient does have baseline abnormalities. Labs are due Hypertension: Blood pressure is stable he has seen Nephrology once in 2020 patient have stage III nephropathy Lipid disorder: Continue atorvastatin 40 mg he is to have labs done today. GERD is stable with omeprazole, however complaining of yellow frothy vomiting twice a week He is 48 years old and never had colonoscopy, I am booking appointment with gastroenterology to be evaluated for vomiting as well as for possible colonoscopy Medication from this office are omeprazole , lisinopril 20 mg amlodipine 10 mg carvedilol 6.25 mg .? And atorvastatin 40 mg Follow-up 3 months Orders: Orders Complete Blood Count Auto Diff Today E78.9 - Disorder of lipoprotein metabolism, unspecified, F14.11 - Cocaine abuse, in remission, F31.9 - Bipolar disorder, unspecified, I10 - Essential (primary) hypertension, K21.9 - Gastro-esophageal reflux disease without esophagitis, N18.30 - Chronic kidney disease, stage 3 unspecified Comprehensive Met. Panel Today E78.9 - Disorder of lipoprotein metabolism, unspecified, F14.11 - Cocaine abuse, in remission, F31.9 - Bipolar disorder, unspecified, I10 - Essential (primary) hypertension, K21.9 - Gastro-esophageal reflux disease without esophagitis, N18.30 - Chronic kidney disease, stage 3 unspecified LDL Cholesterol Direct Today E78.9 - Disorder of lipoprotein metabolism, unspecified, F14.11 - Cocaine abuse, in remission, F31.9 - Bipolar disorder, unspecified, I10 - Essential (primary) hypertension, K21.9 - Gastro-esophageal reflux disease without esophagitis, N18.30 - Chronic kidney disease, stage 3 unspecified AMB EKG-In Office Today I42.9 - Cardiomyopathy, unspecified, R07.9 - Chest pain, unspecified CA echo transthoracic complete Today I42.9 - Cardiomyopathy, unspecified B Type Natriuretic Peptide Today I42.9 - Cardiomyopathy, unspecified Referrals Gastroenterology Referral R11.10 - Vomiting, unspecified Coding Level of Care Code Est Pt Level 5 (77995) Diagnoses Precordial pain R07.2 Chest pain type: precordial pain 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 Cardiomyopathy type: due to drug Hypertension, essential I10 Cocaine abuse F14.10 Stage 3a chronic kidney disease N18.31 Chronic kidney disease stage 3 subtype: stage 3a (GFR 45-59) Bipolar 1 disorder F31.9 Chronic GERD K21.9 Lipid disorder E78.9 Recurrent vomiting R11.10 CPT Codes EKG - CPT: 15588-[id number], Complete ([id number]) Additional Codes HAMZAH-7 Assessment Billing - HAMZAH-7 Assessment Tool: HAMZAH-7 Assessment 70321 ([id number]) Time Spent (min) 45 Comment 5 prep, 25 with patient, 5 EKG, 10 charting/coordination of care
== END 2023-08-24 13:32 | disposition home or self-care (01) ==
LOC: HO.HMGC 12:08
PROVIDERS: PCP Internal Medicine; Visit Provider Internal Medicine
DX: R07.2 Precordial pain (principal); I42.7 Cardiomyopathy due to drug and external agent; F14.10 Cocaine abuse, uncomplicated; F31.9 Bipolar disorder, unspecified; N18.31 Chronic kidney disease, stage 3a; K21.9 Gastro-esophageal reflux disease without esophagitis; I10 Essential (primary) hypertension; E78.9 Disorder of lipoprotein metabolism, unspecified; R11.10 Vomiting, unspecified
CPT/HCPCS: 93000; 99215

== ENCOUNTER 2023-08-24 12:57 | Outpatient (REF) | payer OTHER, SELFPAY ==
[2023-08-24 16:07] LABS: MANUAL DIFF FLAG NO
[2023-08-24 16:12] LABS: Basophils Absolute Auto 0.1 X10*3/uL (0.0-0.2); Basophils Percent Auto 0.8 % (0-2); Eosinophils Absolute Auto 0.2 X10*3/uL (0.0-0.4); Hematocrit 39.7 % (42.0-52.0); Hemoglobin 12.8 g/dl (14.0-18.0); Imm Gran Abs Auto 0.01 X10*3/uL (0.00-0.03); Imm Gran Pct Auto 0.2 % (0.0-0.4); Lymphocytes Absolute Auto 1.8 X10*3/uL (1.2-4.9); Lymphocytes Percent Auto 28.9 % (20-40); Mean Corpuscular HGB Conc 32.2 g/dl (31.0-36.0); Mean Corpuscular Hemoglobin 26.9 pg (27.0-33.0); Mean Corpuscular Volume 83.4 fL (80.0-98.0); Mean Platelet Volume 9.4 fL (9.4-12.4); Monocytes Absolute Auto 0.6 X10*3/uL (0.1-1.2); Monocytes Percent Auto 9.1 % (2-11); Neutrophils Absolute Auto 3.6 x10*3/uL (2.0-8.3); Platelet Count 286 X10*3/uL (160-400); Red Blood Count 4.76 X10*6/uL (4.60-5.80); Red Cell Distribution Width 13.7 % (11.0-16.0); White Blood Count 6.3 X10*3/uL (4.8-10.8)
[2023-08-24 16:25] LABS: Alanine Aminotransferase 19 U/L (0-40); Albumin Level 4.1 g/dL (3.5-5.0); Alkaline Phosphatase 79 U/L (39-117); Anion Gap 12 (12-20); Aspartate Amino Transferase 21 U/L (5-37); Bilirubin Total 0.9 mg/dL (0.0-1.0); Blood Urea Nitrogen 20 mg/dL (9-16); Calcium 9.2 mg/dL (8.4-10.2); Carbon Dioxide 27 mmol/L (22-29); Chloride 103 mmol/L (96-108); Estimated Glomerular Filt Rate 53; Glucose Random 108 mg/dL (60-115); Potassium 3.1 mmol/L (3.3-5.1); Sodium 139 mmol/L (135-145); Total Protein 7.4 g/dL (6.5-8.0)
[2023-08-24 16:45] LABS: B Type Natriuretic Peptide 37 pg/mL (<100)
[2023-08-27 04:02] LABS: LDL Cholesterol Direct 101 mg/dL (<100)
== END 2023-08-24 12:58 | disposition home or self-care (01) ==
LOC: HO.HMGCLDS 12:57
PROVIDERS: PCP Internal Medicine; Visit Provider Internal Medicine
DX: I12.9 Hypertensive chronic kidney disease with stage 1 through stage 4 chronic kidney disease, or unspecified chronic kidney disease (principal); N18.30 Chronic kidney disease, stage 3 unspecified; I42.9 Cardiomyopathy, unspecified; E78.9 Disorder of lipoprotein metabolism, unspecified; F31.9 Bipolar disorder, unspecified; K21.9 Gastro-esophageal reflux disease without esophagitis; F14.11 Cocaine abuse, in remission
CPT/HCPCS: 36415; 80053; 83721; 83880; 85025

== ENCOUNTER → 2023-11-01 11:02 | Outpatient (REF) | payer OTHER, SELFPAY ==
--- NOTE | 2023-11-01 11:09 | CA_ITS ---
Transthoracic Echocardiogram Patient (Last, First, Middle): Mannie Ford V Gender: Male Date of : 1975 Age: 48 Procedure Date: 11/01/2023 Procedure Type: Transthoracic Echocardiogram Location: OP Height: 180.34 cm Weight: 98.43 kg BSA: 2.18 m2 Heart Rate: bpm BP: 122 / 60 mmHg Machine Feller: Referring MD: Anand Aguilar MD Symptoms: I42.9 - Cardiomyopathy, unspecified Study Quality: Adequate ECG Rhythm: Sinus Conclusions: - The left ventricular systolic function is mildly decreased. The calculated ejection fraction is 44% by biplane method. - No obvious valvular pathology seen on this study. Findings Left Ventricle Normal left ventricular cavity size. There is mildly increased left ventricular wall thickness. The left ventricular systolic function is mildly decreased. The calculated ejection fraction is 44% by biplane method. There is mild global hypokinesis. Diastolic function is normal for age. Right Ventricle Normal right ventricular cavity size. There is mildly decreased right ventricular systolic function. Atria Both atria are normal in size. Aortic Valve There is a normal trileaflet aortic valve. There is no aortic valve stenosis. There is trace (trivial) aortic valve regurgitation. Mitral Valve The mitral valve appears normal. There is trace mitral valve regurgitation. There is no mitral valve stenosis. Pulmonic Valve The pulmonic valve is likely normal. Tricuspid Valve Normal tricuspid valve structure. There is trace tricuspid valve regurgitation. There is no evidence of pulmonary hypertension. Great Vessels The asc aorta is normal in size. Venous The inferior vena cava was not well visualized. Pericardium/Pleural There is a trivial pericardial effusion. Prior Study Comparison Changes noted compared to prior study dated: 11/23/2018. slightly improved LVEF. Recommendations, Care & Conclusions No obvious valvular pathology seen on this study. Measurements 2D Linear Measurements IVSd: 1.32 0.6-0.9/0.6-1.0 cm LVIDd: 4.96 3.9-5.3/4.2-5.9 cm LVIDd Index: 2.28 2.4-3.2/2.2-3.1 cm/m2 LVIDs: 3.34 2.0-3.6 cm LVPWd: 1.31 0.7-1.1 cm Ao Root: 3.40 2.1-3.5 cm LA Diam: 4.30 2.7-3.8/3.0-4.0 cm LAIDs Index: 1.97 1.5-2.3 cm/m2 LV Mass: 327.83 67-162/88-224 g LV Mass Index: 150.38 43-95/49-115 g/m2 LVOT Diam: 2.30 3.0+(-)1.3 cm 2D Systolic Function EF 4C: 43.10 >55% EF 2C: 42.30 >55% EF BiP: 43.60 >55% Mitral Valve MV Pk E: 0.69 MV PK A: 0.50 MV Decel Time: 159.00 E/A: 1.40 E'Lateral: 9.14 E'Medial: 5.98 E/E' Med: 11.50 E/E' Lat: 7.50 PHT: 47.00 MVA PHT: 4.68 Decel [place]: 4.30 Aortic Valve AoV Pk Glenn: 1.29 AoV Mn Glenn: 0.88 AoV VTI: 0.30 AoV Pk Grad: 7.00 Aov Mn Grad: 4.00 SUSAN Cont.VTI: 2.43 LVOT LVOT Pk Glenn: 0.84 LVOT Mn Glenn: 0.56 LVOT VTI: 0.18 LVOT Pk Grad: 3.00 LVOT Mn Grad: 2.00 LVOT Diam: 2.30 LVOT Area: 4.15 Diastolic Function MV Pk E: 0.69 MV Pk A: 0.50 E/A: 1.40 E'Medial: 5.98 E/E' Med: 11.50 E' Laterial: 9.14 E/E' Lat: 7.50 Right Ventricle TAPSE (mm): 22.00 TVS' Glenn: 8.00 Tricuspid Valve TR Pk Glenn: 2.28 TR Pk Grad: 21.00 RA Press: 3.00 RVSP: 24.00 Great Vessels Aorta Ao Root-2D: 3.40 2.0-3.7 cm Ao Asc: 3.20 2.1-3.4 cm Pulmonary Valve PV Pk Glenn: 0.79 Peak PV Grad: 3.00 Updated in Other Vendor System with Status of Final Chu Morales MD electronically signed on 11/02/2023 5:39:49 AM with status of Final
== END ==
LOC: HO.CARD 11:02
PROVIDERS: PCP Internal Medicine; Visit Provider Internal Medicine
DX: I42.9 Cardiomyopathy, unspecified (principal)
CPT/HCPCS: 93306; Q9957

== ENCOUNTER → 2023-11-01 11:09 | Outpatient (BNV) | payer OTHER, SELFPAY | PROVIDERS: PCP Internal Medicine; Visit Provider Internal Medicine | DX: I42.9 Cardiomyopathy, unspecified (principal) | CPT/HCPCS: 93306 ==

== ENCOUNTER 2023-12-01 08:50 | Outpatient (AMB) | payer OTHER, SELFPAY ==
[2023-12-01 08:55] VITALS: BP 120/80; PULSE 91; O2SAT 96; BMI 30.3
--- NOTE | 2023-12-01 08:55 | A.OFFPC_ITS ---
Vital Signs 12/01/23 08:55 Height 5 ft 11 in Weight 217 lb 3 oz BMI 30.3 BP 120/80 Blood Pressure Location Rt brachial Position Sitting Pulse 91 Pulse Source Pulse Oximeter Pulse Oximetry (%) 96 Oxygen Delivery Method Room Air Intake Visit Reasons: Annual PE Allergies No Known Allergies [No Known Allergies*] Allergy (Verified 12/01/23 08:56) bees Allergy (Unknown, Uncoded 10/27/22 14:02) swelling and difficulty breathing Medication List - Last Reconciled 12/01/23 by Anand Aguilar MD amlodipine 10 mg See Protocol PO DAILY 90 days atorvastatin 40 mg PO BEDTIME 90 days buspirone 10 mg PO TID carvedilol 6.25 mg PO BID cholecalciferol (vitamin D3) 25 mcg PO DAILY furosemide (Lasix) 20 mg PO DAILY gabapentin 300 mg PO TID lidocaine 5% 1 patch topical DAILY 30 days lisinopril 20 mg PO DAILY 90 days omeprazole 40 mg PO DAILY 90 days quetiapine (Seroquel) 300 mg PO DAILY trazodone 100 mg PO BEDTIME Tobacco use date assessed: 12/01/23 Dental Screening Dental Screen Date: 12/01/23 Did you have a dental visit in the last 12 months?: No Did you have a dental problem in the last 6 months where you did not have access to dental care?: No Was dental information given to patient?: No HPI Annual PE HPI Details Physical exam appointment Echocardiogram done on October 2023 showed - The left ventricular systolic function is mildly decreased. The calculated ejection fraction is 44% by biplane method. - No obvious valvular pathology seen on this study Patient has nonischemic cardiomyopathy his ejection fraction was 20% before it has improved He has not seen advice line rn in a while, however agree to see 1, referral placed Continued to use cocaine and smoke marijuana Patient is seeing psychiatrist for his bipolar disorder and is taking psychiatric medications through them. He want to start therapy at [facility], our behavior health coordinator will see patient today for that Nephropathy: Need repeat labs today CKD stage 2 Hypertension: Blood pressure is stable Lipid disorder: Continue atorvastatin 40 mg he is to have labs done today. GERD is stable with omeprazole, however complaining of yellow frothy vomiting twice a week he has not been able to make appointment with gastroenterology Gastroenterology office has been calling him and he has not been picking up is phone He tells me that he has been very busy but he will get back to them as soon as he can, he is aware that he is due for colonoscopy as well Follow-up 3 months [facility] [place] Medical History CKD (chronic kidney disease) stage 3, GFR 30-59 ml/min Cardiomyopathy Bipolar 1 disorder CHF (congestive heart failure) Family History Father No problems noted. Mother No problems noted. Other Mental health disorder Substance use disorder Social History Household Members: Family Household Members Other:: mother Housing: Condominium Do you presently have visiting nurse or other home services: No Alcohol intake: current Alcohol intake frequency: 0-2 drinks per day Alcohol type: hard liquor Patient Tobacco Use Status: Never used Tobacco e-Cigarette/Vaping Use: Never Used Substance Use Type: Crack/Cocaine and Marijuana service: No Current occupational status: retired and disabled 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 Cognitive needs: No Hearing needs: No Vision needs: Yes (glasses) Questionnaire Thrive Questionnaire Date Thrive assessed: 10/27/22 AUDIT C Alcohol Use Questionnaire (AUDIT-C) 1. How often do you have a drink containing alcohol?: Monthly or less 2. How many drinks containing alcohol do you have on a typical day when you are drinking?: 1 or 2 3. How often do you have six or more drinks on one occasion?: Never Total Score: 1 Score Reviewed/Action Taken: Yes HAMZAH-7 AMB Questionnaire HAMZAH-7 Date HAMZAH - 7 assessed: 08/24/23 Source: Developed by Drs. Ricky Cárdenas, Doreen Cardona, Jl Pedro and colleagues, with an educational keith from [employer]. Review of Systems Const Denies chills, Denies fever(s) and Denies headache(s) Eyes Denies blurry vision ENT Denies headache(s), Denies nasal discharge, Denies nasal obstruction, Denies odynophagia and Denies sinus pain Card Denies chest pain at rest and Denies chest pain with activity Resp Denies cough and Denies hemoptysis GI Denies diarrhea, Denies odynophagia and Denies hematemesis Reports as per HPI Musc Denies abnormal gait Skin/Breast Reports as per HPI Neuro Denies Neuro-related abnormal movements, Denies Abnormal speech present, Denies abnormal gait, Denies headache(s) and Denies Sensory deficit (Neuro) Endo Reports as per HPI Casey/Lymph Reports as per HPI Aller/Immun Reports as per HPI Physical exam (Primary Care) Vital Signs: Last Vital Signs Pulse 91 12/01/23 08:55 BP 120/80 12/01/23 08:55 Pulse Ox 96 12/01/23 08:55 Oxygen Delivery Method Room Air 12/01/23 08:55 BMI result Body Mass Index 30.3 Tobacco/Smoking Status: Tobacco use Status Tobacco use date assessed 12/01/23 12/01/23 08:59 Patient Tobacco Use Status Never used Tobacco 12/01/23 08:59 e-Cigarette/Vaping Use Never Used 12/01/23 08:59 Thrive Assessment: Date of Thrive Assessment Date Thrive assessed 10/27/22 12/01/23 08:59 Const General: cooperative, comfortable and no acute distress Orientation/consciousness: patient oriented x3 HENMT Head: Yes normocephalic and Yes atraumatic Eyes General: appearance normal, both eyes and all related structures Pupils: Equal, round and reactive pupils present EOM: EOMs intact bilaterally Neck Neck: Yes supple and No lymphadenopathy Thyroid: Thyroid normal Lymphatic: no lymphadenopathy noted Resp Effort & Inspection: normal respiratory effort and able to speak in complete sentences Auscultation: clear to auscultation bilaterally Cardio Heart sounds: S1 normal heart sound present and S2 normal heart sound present GI Palpation (GI): Soft to palpation and nontender Auscultation: normal bowel sounds General: Yes no CVA tenderness Back/Spine/Pelvis Back: no CVA tenderness Skin General skin exam: elasticity normal and turgor normal Neuro General: patient oriented x3 and gait normal Cranial nerves: Yes Equal, round and reactive pupils present Speech: No Abnormal speech present Sensory Exam: No Sensory deficit (Neuro) Coordination: tandem gait normal and Romberg test negative Extrem General: Yes normal exam except as noted and No edema Assessment and Plan Assessment & Plan (1) Hypertension, essential: Code(s): I10 - Essential (primary) hypertension (2) Lipid disorder: Code(s): E78.9 - Disorder of lipoprotein metabolism, unspecified (3) Cardiomyopathy: Code(s): I42.9 - Cardiomyopathy, unspecified Qualifiers: Cardiomyopathy type: due to drug Qualified Code(s): I42.7 - Cardiomyopathy due to drug and external agent (4) CKD (chronic kidney disease) stage 3, GFR 30-59 ml/min: Code(s): N18.30 - Chronic kidney disease, stage 3 unspecified Qualifiers: Chronic kidney disease stage 3 subtype: stage 3a (GFR 45-59) Qualified Code(s): N18.31 - Chronic kidney disease, stage 3a (5) Bipolar 1 disorder: Code(s): F31.9 - Bipolar disorder, unspecified (6) Chronic GERD: Code(s): K21.9 - Gastro-esophageal reflux disease without esophagitis (7) Anemia: Code(s): D64.9 - Anemia, unspecified Qualifiers: Anemia type: other cause Other causes of anemia: chronic disease, other Qualified Code(s): D63.8 - Anemia in other chronic diseases classified elsewhere (8) Cocaine abuse: Code(s): F14.10 - Cocaine abuse, uncomplicated (9) Recurrent vomiting: Code(s): R11.10 - Vomiting, unspecified (10) Cervical radiculopathy: Code(s): M54.12 - Radiculopathy, cervical region (11) Tooth infection: Code(s): K04.7 - Periapical abscess without sinus Plan Physical exam appointment Echocardiogram done on October 2023 showed - The left ventricular systolic function is mildly decreased. The calculated ejection fraction is 44% by biplane method. - No obvious valvular pathology seen on this study Patient has nonischemic cardiomyopathy his ejection fraction was 20% before it has improved He has not seen advice line rn in a while, however agree to see 1, referral placed Continued to use cocaine and smoke marijuana Patient is seeing psychiatrist for his bipolar disorder and is taking psychiatric medications through them. He want to start therapy at [facility], our behavior health coordinator will see patient today for that Nephropathy: Need repeat labs today CKD stage 2 He is slightly anemic as well Complaining of tooth infection requesting antibiotic, promised me that he will call dentist for appointment Continued to have cervical back pain and is requesting Lidoderm patches that he was prescribed before Hypertension: Blood pressure is stable Lipid disorder: Continue atorvastatin 40 mg he is to have labs done today. GERD is stable with omeprazole, however complaining of yellow frothy vomiting twice a week he has not been able to make appointment with gastroenterology Gastroenterology office has been calling him and he has not been picking up is phone He tells me that he has been very busy but he will get back to them as soon as he can, he is aware that he is due for colonoscopy as well Follow-up 3 months Orders: Orders Complete Blood Count Auto Diff Today D64.9 - Anemia, unspecified, E78.9 - Disorder of lipoprotein metabolism, unspecified, F31.9 - Bipolar disorder, unspecified, I10 - Essential (primary) hypertension, I42.9 - Cardiomyopathy, unspecified, K21.9 - Gastro-esophageal reflux disease without esophagitis, N18.30 - Chronic kidney disease, stage 3 unspecified Comprehensive Met. Panel Today D64.9 - Anemia, unspecified, E78.9 - Disorder of lipoprotein metabolism, unspecified, F31.9 - Bipolar disorder, unspecified, I10 - Essential (primary) hypertension, I42.9 - Cardiomyopathy, unspecified, K21.9 - Gastro-esophageal reflux disease without esophagitis, N18.30 - Chronic kidney disease, stage 3 unspecified Referrals Cardiology Referral I42.9 - Cardiomyopathy, unspecified Medications: New amoxicillin-pot clavulanate 875-125 mg 1 tab PO BID 14 tabs 0RF 7 days Refilled lidocaine 5% leave on most painful area for up to 12 hrs 1 patch topical DAILY 30 ea 0RF 30 days Coding Level of Care Code Est Pt Prev Care 40-64y([id number]) Diagnoses Hypertension, essential I10 Lipid disorder E78.9 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 Cocaine abuse F14.10 Recurrent vomiting R11.10 Cervical radiculopathy M54.12 Tooth infection K04.7
== END 2023-12-01 09:33 | disposition home or self-care (01) ==
PROVIDERS: PCP Internal Medicine; Visit Provider Internal Medicine
DX: Z00.00 Encounter for general adult medical examination without abnormal findings (principal); N18.31 Chronic kidney disease, stage 3a; I42.7 Cardiomyopathy due to drug and external agent; F31.9 Bipolar disorder, unspecified; F14.10 Cocaine abuse, uncomplicated; I10 Essential (primary) hypertension; E78.9 Disorder of lipoprotein metabolism, unspecified; K21.9 Gastro-esophageal reflux disease without esophagitis; D63.8 Anemia in other chronic diseases classified elsewhere; R11.10 Vomiting, unspecified; M54.12 Radiculopathy, cervical region; K04.7 Periapical abscess without sinus
CPT/HCPCS: 99396

== ENCOUNTER 2024-02-22 10:01 | Outpatient (AMB) | payer OTHER, SELFPAY ==
[2024-02-22 10:02] VITALS: BP 148/102; PULSE 83; O2SAT 96; BMI 30.1
--- NOTE | 2024-02-22 10:02 | MHC.PC.OV ---
Vital Signs 02/22/24 10:02 Height 5 ft 11 in Weight 216 lb 2 oz BMI 30.1 BP 148/102 H Blood Pressure Location Lt brachial Pulse 83 Pulse Source Pulse Oximeter Pulse Oximetry (%) 96 Intake Visit Reasons: 3M F/U Allergies No Known Allergies [No Known Allergies*] Allergy (Verified 02/22/24 10:04) bees Allergy (Unknown, Uncoded 10/27/22 14:02) swelling and difficulty breathing Medication List - Last Reconciled 02/22/24 by Anand Aguilar MD amlodipine 10 mg See Protocol PO DAILY 90 days atorvastatin 40 mg PO BEDTIME 90 days buspirone 10 mg PO TID carvedilol 6.25 mg PO BID cholecalciferol (vitamin D3) 25 mcg PO DAILY furosemide (Lasix) 20 mg PO DAILY gabapentin 300 mg PO TID lidocaine 5% 1 patch topical DAILY 30 days lisinopril 20 mg PO DAILY 90 days omeprazole 40 mg PO DAILY 90 days quetiapine (Seroquel) 300 mg PO DAILY trazodone 100 mg PO BEDTIME Tobacco use date assessed: 02/22/24 Dental Screening Dental Screen Date: 02/22/24 Did you have a dental visit in the last 12 months?: No Did you have a dental problem in the last 6 months where you did not have access to dental care?: No Was dental information given to patient?: No HPI 3M F/U HPI Details Patient is a 48-year-old gentleman came in today for his regular follow-up appointment He has cardiology appointment coming up this , patient was reminded of this appointment and was given time and address Echocardiogram done on October 2023 showed - The left ventricular systolic function is mildly decreased. The calculated ejection fraction is 44% by biplane method. - No obvious valvular pathology seen on this study Patient has nonischemic cardiomyopathy his ejection fraction was 20% before it has improved Patient have history of street drug abuse like cocaine Tells me that he has not been doing that lately He has lost his social security income Has is social security was denied He tells me that he will be applying for that again Continued to have pain in his neck and lower back Patient is seeing psychiatrist for his bipolar disorder and is taking psychiatric medications through them. He want to start therapy at [facility], our behavior health coordinator will see patient today for that Nephropathy: Patient has CKD stage 2 He is slightly anemic as well Complaining of tooth infection requesting antibiotic, again, he has taken 1 course of antibiotic last visit He tells me that before his appointment in May he will have all his teeth pulled and have dentures made I have sent amoxicillin for 14 days Hypertension: Blood pressure has been, today it is slightly elevated Lipid disorder: Continue atorvastatin 40 mg he is to have labs done today. GERD is stable with omeprazole, management through Gastroenterology office Follow-up 3 months still has not done his labs, reminded again need to be done today. [facility] Medical History CKD (chronic kidney disease) stage 3, GFR 30-59 ml/min Cardiomyopathy Bipolar 1 disorder CHF (congestive heart failure) Family History Father No problems noted. Mother No problems noted. Other Mental health disorder Substance use disorder Social History Household Members: Family Household Members Other:: mother [facility] Do you presently have visiting nurse or other home services: No Alcohol intake: current Alcohol intake frequency: 0-2 drinks per day Alcohol type: hard liquor Patient Tobacco Use Status: Never used Tobacco e-Cigarette/Vaping Use: Never Used Substance Use Type: Crack/Cocaine and Marijuana service: No Current occupational status: retired and disabled 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 Cognitive needs: No Hearing needs: No Vision needs: Yes (glasses) Questionnaire PHQ-9 Over the last 2 weeks, how often have you been bothered by any of the following problems? 1. Little interest or pleasure in doing things: more than half the days 2. Feeling down, depressed, or hopeless: nearly every day 3. Trouble falling or staying asleep, or sleeping too much: not at all 4. Feeling tired or having little energy: not at all 5. Poor appetite or overeating: nearly every day 6. Feeling bad about yourself - or that you are a failure or have let yourself or your family down: not at all 7. Trouble concentrating on things, such as reading the newspaper or watching television: nearly every day 8. Moving or speaking so slowly that other people could have noticed. Or the opposite - being so fidgety or restless that you have been moving around a lot more than usual: more than half the days 9. Thoughts that you would be better off or of hurting yourself in some way: not at all Total score: 13 Depression Screening Interpretation: Positive Depression Screening Follow-up: Existing condition and In treatment Depression Screening Done: Yes 30990 - PHQ-9 Billing: Yes Source: Developed by Drs. Ricky Cárdenas, Doreen Cardona, Jl Pedro and colleagues, with an educational keith from [employer]. Thrive Questionnaire Date Thrive assessed: 02/22/24 I am a: Patient What is your living situation today?: I have a steady place to live Within the past 12 months, did the food you bought not last and you didn't have the money to get more?: Never true Within the past 12 months, did you worry whether your food would run out before you got money to buy more?: Never true Do you have trouble paying for medicines?: No Do you have trouble getting transportation to medical appointments?: No Do you have trouble paying your heating and electricity bill?: Yes Do you have trouble taking care of your child, family member or friend?: No Do you have trouble with day-to-day activities such as bathing, preparing meals, shopping, managing finances, etc.?: No Are you currently unemployed and looking for a job?: No Are you interested in more education?: No Please select the resources that you would like help with: None Currently or been in a relationship where the following occur: no concerns reported THRIVE Score: 1 AUDIT C Alcohol Use Questionnaire (AUDIT-C) 1. How often do you have a drink containing alcohol?: Monthly or less 2. How many drinks containing alcohol do you have on a typical day when you are drinking?: 1 or 2 3. How often do you have six or more drinks on one occasion?: Never Total Score: 1 Score Reviewed/Action Taken: Yes HAMZAH-7 AMB Questionnaire HAMZAH-7 Date HAMZAH - 7 assessed: 02/22/24 Feeling nervous, anxious, or on edge: 3 = Nearly every day Not being able to stop or control worryin = Nearly every day Worrying too much about different things: 3 = Nearly every day Trouble relaxin = Not at all Being so restless that it is hard to sit still: 0 = Not at all Becoming easily annoyed or irritable: 3 = Nearly every day Feeling afraid as if something awful might happen: 0 = Not at all Total HAMZAH-7 score (0-4 normal; 5-9 mild; 10-14 moderate; 15-21 severe): 12 Source: Developed by Drs. Ricky Cárdenas, Doreen Cardona, Jl Pedro and colleagues, with an educational keith from [employer]. HAMZAH-7 Assessment Billing HMAZAH-7 Assessment Tool: HAMZAH-7 Assessment 23365 Review of Systems Const Denies chills and Denies fever(s) ENT Denies epistaxis and Denies nasal discharge Card Denies chest pain Resp Denies chest congestion, Denies cough and Denies hemoptysis GI Denies diarrhea and Denies nausea Skin/Breast Denies rash Neuro Reports no additional complaints Psych Reports no additional complaints Endo Reports no additional complaints Physical exam (Primary Care) Vital Signs: Last Vital Signs Pulse 83 02/22/24 10:02 BP 148/102 H 02/22/24 10:02 Pulse Ox 96 02/22/24 10:02 BMI result Body Mass Index 30.1 Tobacco/Smoking Status: Tobacco use Status Tobacco use date assessed 02/22/24 02/22/24 10:06 Patient Tobacco Use Status Never used Tobacco 02/22/24 10:05 e-Cigarette/Vaping Use Never Used 02/22/24 10:05 PHQ-9: PHQ-9 Score PHQ-9: Total score 13 02/22/24 10:33 Depression Screening Interpretation: Positive Depression Screening Follow-up: Existing condition and In treatment Thrive Assessment: Date of Thrive Assessment Date Thrive assessed 02/22/24 02/22/24 10:28 Currently or been in a relationship where the following occur: no concerns reported Const General: cooperative, comfortable and no acute distress Orientation/consciousness: patient oriented x3 HENMT Other: Inflamed gum top front jaw Head: Yes normocephalic Eyes General: appearance normal, both eyes and all related structures Neck Neck: Yes supple Resp Effort & Inspection: normal respiratory effort, no cough and no stridor Cardio Rhythm: regular rhythm Heart sounds: S1 normal heart sound present and S2 normal heart sound present Skin General skin exam: turgor normal Neuro General: patient oriented x3, tone normal and moves all extremities Extrem Right lower extremity: no edema Left lower extremity: no edema Assessment and Plan Assessment & Plan (1) Hypertension, essential: Code(s): I10 - Essential (primary) hypertension (2) Lipid disorder: Code(s): E78.9 - Disorder of lipoprotein metabolism, unspecified (3) Cardiomyopathy: Code(s): I42.9 - Cardiomyopathy, unspecified Qualifiers: Cardiomyopathy type: due to drug Qualified Code(s): I42.7 - Cardiomyopathy due to drug and external agent (4) CKD (chronic kidney disease) stage 3, GFR 30-59 ml/min: Code(s): N18.30 - Chronic kidney disease, stage 3 unspecified Qualifiers: Chronic kidney disease stage 3 subtype: stage 3a (GFR 45-59) Qualified Code(s): N18.31 - Chronic kidney disease, stage 3a (5) Bipolar 1 disorder: Code(s): F31.9 - Bipolar disorder, unspecified (6) Chronic GERD: Code(s): K21.9 - Gastro-esophageal reflux disease without esophagitis (7) Anemia: Code(s): D64.9 - Anemia, unspecified Qualifiers: Anemia type: other cause Other causes of anemia: chronic disease, other Qualified Code(s): D63.8 - Anemia in other chronic diseases classified elsewhere (8) Cervical radiculopathy: Code(s): M54.12 - Radiculopathy, cervical region (9) Tooth infection: Code(s): K04.7 - Periapical abscess without sinus Plan Patient is a 48-year-old gentleman came in today for his regular follow-up appointment He has cardiology appointment coming up this , patient was reminded of this appointment and was given time and address Echocardiogram done on October 2023 showed - The left ventricular systolic function is mildly decreased. The calculated ejection fraction is 44% by biplane method. - No obvious valvular pathology seen on this study Patient has nonischemic cardiomyopathy his ejection fraction was 20% before it has improved Patient have history of street drug abuse like cocaine Tells me that he has not been doing that lately He has lost his social security income Has is social security was denied He tells me that he will be applying for that again Continued to have pain in his neck and lower back Patient is seeing psychiatrist for his bipolar disorder and is taking psychiatric medications through them. He want to start therapy at [facility], our behavior health coordinator will see patient today for that Nephropathy: Patient has CKD stage 2 He is slightly anemic as well Complaining of tooth infection requesting antibiotic, again, he has taken 1 course of antibiotic last visit He tells me that before his appointment in May he will have all his teeth pulled and have dentures made I have sent amoxicillin for 14 days Hypertension: Blood pressure has been, today it is slightly elevated Lipid disorder: Continue atorvastatin 40 mg he is to have labs done today. GERD is stable with omeprazole, management through Gastroenterology office Follow-up 3 months still has not done his labs, reminded again need to be done today. 50 minutes spent in care of this patient including [id number] going over medical problems, answering all questions and concerns Reviewing chart,, labs, notes, coordination of care Medications: New amoxicillin 875 mg PO BID 14 days 28 tabs 0RF Coding Level of Care Code Est Pt Level 5 (12585) Complex EM visit Add On G2211 Diagnoses Hypertension, essential I10 Lipid disorder E78.9 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 Cervical radiculopathy M54.12 Tooth infection K04.7 Additional Codes HAMZAH-7 Assessment Billing - HAMZAH-7 Assessment Tool: HAMZAH-7 Assessment 05237 ([id number])
== END 2024-02-22 10:28 | disposition home or self-care (01) ==
PROVIDERS: PCP Internal Medicine; Visit Provider Internal Medicine
DX: I12.9 Hypertensive chronic kidney disease with stage 1 through stage 4 chronic kidney disease, or unspecified chronic kidney disease (principal); N18.31 Chronic kidney disease, stage 3a; I42.7 Cardiomyopathy due to drug and external agent; F31.9 Bipolar disorder, unspecified; E78.9 Disorder of lipoprotein metabolism, unspecified; K21.9 Gastro-esophageal reflux disease without esophagitis; D63.8 Anemia in other chronic diseases classified elsewhere; M54.12 Radiculopathy, cervical region; K04.7 Periapical abscess without sinus
CPT/HCPCS: 99215; G2211

== ENCOUNTER 2024-02-22 10:29 | Outpatient (REF) | payer OTHER, SELFPAY ==
[2024-02-22 13:21] LABS: MANUAL DIFF FLAG NO
[2024-02-22 13:34] LABS: Basophils Percent Auto 0.8 % (0-2); Eosinophils Absolute Auto 0.2 X10*3/uL (0.0-0.4); Eosinophils Percent Auto 3.7 % (0-4); Hematocrit 37.6 % (42.0-52.0); Imm Gran Abs Auto 0.05 X10*3/uL (0.00-0.03); Lymphocytes Absolute Auto 1.8 X10*3/uL (1.2-4.9); Lymphocytes Percent Auto 34.8 % (20-40); Mean Corpuscular HGB Conc 31.9 g/dl (31.0-36.0); Mean Corpuscular Hemoglobin 26.7 pg (27.0-33.0); Mean Corpuscular Volume 83.6 fL (80.0-98.0); Mean Platelet Volume 8.8 fL (9.4-12.4); Monocytes Absolute Auto 0.5 X10*3/uL (0.1-1.2); Monocytes Percent Auto 10.2 % (2-11); Neutrophils Absolute Auto 2.5 x10*3/uL (2.0-8.3); Neutrophils Percent Auto 49.5 % (45-73); Platelet Count 423 X10*3/uL (160-400); Red Cell Distribution Width 15.4 % (11.0-16.0); White Blood Count 5.1 X10*3/uL (4.8-10.8)
[2024-02-22 13:51] LABS: Alanine Aminotransferase 18 U/L (0-40); Albumin Level 4.1 g/dL (3.5-5.0); Alkaline Phosphatase 83 U/L (39-117); Anion Gap 11 (12-20); Aspartate Amino Transferase 16 U/L (5-37); Bilirubin Total 0.2 mg/dL (0.0-1.0); Blood Urea Nitrogen 13 mg/dL (9-16); Calcium 9.4 mg/dL (8.4-10.2); Carbon Dioxide 28 mmol/L (22-29); Chloride 104 mmol/L (96-108); Estimated Glomerular Filt Rate 59; Glucose Random 113 mg/dL (60-115); Potassium 3.7 mmol/L (3.3-5.1); Sodium 139 mmol/L (135-145); Total Protein 7.2 g/dL (6.5-8.0)
== END 2024-02-22 10:30 | disposition home or self-care (01) ==
LOC: HO.HMGCLDS 10:29
PROVIDERS: PCP Internal Medicine; Visit Provider Internal Medicine
DX: I12.9 Hypertensive chronic kidney disease with stage 1 through stage 4 chronic kidney disease, or unspecified chronic kidney disease (principal); E78.9 Disorder of lipoprotein metabolism, unspecified; I42.9 Cardiomyopathy, unspecified; N18.30 Chronic kidney disease, stage 3 unspecified; F31.9 Bipolar disorder, unspecified; K21.9 Gastro-esophageal reflux disease without esophagitis; D64.9 Anemia, unspecified
CPT/HCPCS: 36415; 80053; 85025

== ENCOUNTER 2024-03-21 11:33 | Inpatient (IN) | payer OTHER, SELFPAY ==
--- NOTE | ~2024-03-21 | CT_ITS ---
EXAMINATION: CT ANGIOGRAM HEAD CT ANGIOGRAM NECK CLINICAL INFORMATION: Reason for Exam slurred speech, L arm weakness COMPARISON: None. TECHNIQUE: Initial noncontrast alumni relations coordinator imaging of the head and neck was performed. Comparison is made with noncontrast head CT from earlier today. Test bolus sequences followed by intravenous administration 70 mL of Omnipaque 350. Helical imaging was performed in the axial plane from the aortic arch to the skull vertex. Delayed postcontrast imaging of the head was also performed. The data was processed at the hyperbaric technologist's workstation for generation of MIP sequences. Angled MIPs and volume rendered reformatted images were also generated at an offline 3D workstation. Stenoses are assessed in accordance with Anderson et al. Quantification of Carotid Stenosis on CT Angiography. AJR 2006. 27(1):13-19. [address] CT examination was performed using dose optimization techniques as appropriate, variously including the following: *Automated exposure control *Adjustment of mA and/or kV according to patient size (this includes techniques or standardized protocols for targeted exams where dose is matched to indication/reason for exam; i.e. extremities or head) *Use of iterative reconstruction technique DLP: 1622 mGy-cm FINDINGS: CT HEAD: No abnormal intracranial enhancement is visualized. Please see separately dictated CT scan of the head for additional findings. CTA HEAD: Suboptimal with significant intracranial venous contamination. Anterior circulation: Right internal carotid artery: No hemodynamically significant stenosis. Right middle cerebral artery: No hemodynamically significant stenosis. Right anterior cerebral artery: No hemodynamically significant stenosis. Left internal carotid artery: No hemodynamically significant stenosis. Small infundibula arising from the supraclinoid segment. Left middle cerebral artery: No hemodynamically significant stenosis. Left anterior cerebral artery: No hemodynamically significant stenosis. Posterior circulation: Right vertebral artery: No hemodynamically significant stenosis. Left vertebral artery: No hemodynamically significant stenosis. Basilar artery: No hemodynamically significant stenosis. Right posterior cerebral artery: No hemodynamically significant stenosis. Left posterior cerebral artery: No hemodynamically significant stenosis. No high flow vascular malformation or significant aneurysmal dilatation is visualized. The major dural venous sinuses are grossly within normal limits given arterial technique. CTA NECK: Aortic arch: Common origin of the left common carotid artery and right brachiocephalic trunk. Right common carotid artery: Portions of the common carotid artery are degraded by motion. No flow-limiting stenosis in the nondegraded aspects of the study. Right proximal internal carotid artery: Noncalcified atherosclerosis without flow-limiting stenosis. Portions are degraded by motion. Right mid/distal internal carotid artery: No hemodynamically significant stenosis. Left common carotid artery: Portions are suboptimally evaluated secondary to motion. No flow-limiting stenosis within this constraint. Left proximal internal carotid artery: Noncalcified atherosclerosis without flow-limiting stenosis. Left mid/distal internal carotid artery: No hemodynamically significant stenosis. Prominent tortuosity. Right vertebral artery: Severe stenosis at the origin. Portions of the V1 segment are obscured by motion. Otherwise patent. Left vertebral artery: Dominant. The origin and proximal V1 segment are obscured by motion. Otherwise patent. CT NECK: Respiratory motion degrades evaluation of the lung morris. Secretions in the trachea. Subcentimeter hypodense left thyroid nodule for which no imaging follow-up is recommended. Extensive odontogenic disease with numerous dental caries and periapical lucencies. Multilevel degenerative changes of the cervical spine with at least moderate spinal canal stenosis at C5-C6. CT/CT angio head neck stroke IMPRESSION: CTA NECK: Portions of the right common and internal carotid artery are obscured by motion. Additionally, portions of the bilateral vertebral artery V1 segments are obscured by motion. Severe stenosis of the right vertebral artery origin. Otherwise, no flow-limiting stenosis in the nondegraded aspects of the cervical carotid and vertebral arteries. Multilevel degenerative changes of the cervical spine with at least moderate spinal canal stenosis at C5-C6. CTA HEAD: No proximal vessel occlusion or high-grade stenosis. This critical result was discussed with Dr. Brown at 12:38 on 03/21/2024 and it was ascertained that the content and urgency of the report was understood at the time of direct communication.
--- NOTE | ~2024-03-21 | CT_ITS ---
EXAMINATION: CT HEAD WITHOUT CONTRAST (STROKE PROTOCOL) CLINICAL INFORMATION: Stroke protocol. COMPARISON: None available. TECHNIQUE: Contiguous axial imaging was performed from the skull base to vertex without intravenous administration of contrast. This CT examination was performed using dose optimization techniques as appropriate, variously including the following: *Automated exposure control *Adjustment of mA and/or kV according to patient size (this includes techniques or standardized protocols for targeted exams where dose is matched to indication/reason for exam; i.e. extremities or head) *Use of iterative reconstruction technique DLP: 732 mGy-cm FINDINGS: Sulci and ventricles normal. No intra or extra-axial fluid collection or hemorrhage, mass, or mass effect. Calvarium intact. CT/CT head for stroke IMPRESSION: No acute intracranial pathology. Results will be communicated to the emergency room, an addendum will then be issued.
--- NOTE | ~2024-03-21 | MR_ITS ---
EXAMINATION: MR BRAIN WITHOUT CONTRAST CLINICAL INFORMATION: Left upper extremity weakness. Slurred speech. Cerebrovascular accident. COMPARISON: None available. TECHNIQUE: MRI of the brain was obtained using routine sequences without contrast. FINDINGS: No focal restricted diffusion is demonstrated to suggest acute or subacute cerebral ischemia. Punctate focus of susceptibility artifact in the high left frontal lobe consistent with petechial microhemorrhage. No evidence of acute hemorrhagic products on heme-sensitive imaging. Few nonspecific scattered periventricular and deep white matter T2 FLAIR hyperintensities in the bilateral cerebral hemispheres. The ventricles are normal in morphology and size. No abnormal mass effect. No midline shift. Normal appearance of the pituitary gland. Normal positioning of the cerebellar tonsils. Normal arterial and venous vascular flow voids are present. Normal, homogeneous marrow signal. Mild mucosal thickening of the paranasal sinuses. Moderate rightward nasal septal deviation. No signal abnormalities within the mastoids. MR/MR head/brain wo con IMPRESSION: 1. No acute intracranial abnormalities. 2. Mild nonspecific white matter changes.
[2024-03-21 11:39] VITALS: BP 143/109; BP 162/96; PULSE 84; PULSE 92; RESP 18; TEMP 36.8; O2SAT 97; O2SAT 98; BMI 30.3
--- NOTE | 2024-03-21 11:39 | ECG_ITS ---
Test Reason : STROKE Blood Pressure : / mmHG Vent. Rate : 076 BPM Atrial Rate : 076 BPM P-R Int : 162 ms QRS Dur : 098 ms QT Int : 406 ms P-R-T Axes : 049 -07 008 degrees QTc Int : 456 ms Artifact in tracing Sinus rhythm with Premature atrial complexes with Aberrant conduction ( not clearly seen) Otherwise normal ECG When compared with ECG of 20-APR-2021 19:04, Aberrant conduction is now Present Referred By: Leah Brown Electronically Signed By:MANFRED BARDALES
[2024-03-21 11:40] VITALS: BMI 31.2
--- NOTE | 2024-03-21 11:42 | ED_ITS ---
HPI - Neuro Symptoms/Deficit General Chief Complaint: Stroke Stated Complaint: STROKE ALERT,CP,LUE DRIT,WEAK,SLOW SPEECH PER EMS Time Seen by Provider: 03/21/24 11:38 Source: patient, EMS and old records reviewed Mode of arrival: EMS Limitations: no limitations History of Present Illness ED Provider: SHASTA HPI Narrative: 48 yo male with PMH of anemia, cardiomyopathy EF 44% Oct 2023, CKD last Cr 1.29, HTN, HLD, noncompliance with meds, bipolar, GERD, cocaine abuse states he last used 3 days ago who reports he was fine at 8am today then woke up and noted symptoms about 1 hour ago of chest pain, L arm pain and numbness it feels weak and his speech feels slurred. He denies trauma, neck manipulation. EMS noted L arm numbness, weakness and slurred speech. Patient's mother reported his speech was off as well. Smoke THC last night. Had a hard time sleeping due to dental pain. His last known well for us was 8am then told our program coordinator executive education 6am of note EMS gave aspirin HOT DIPPER Onset (ago): hour(s) (last known well 8/830am when he was eating pie) Last Observed Normal: 08:00 Location: speech and left arm History of same: No Severity: moderate Quality: weak and numb Relieving factors: none Exacerbating factors: none Context: sudden onset On Anticoagulants: No Associated symptoms: chest pain (states he always has chest pain) and other (slurred speech) Treatments Prior to Arrival: none Related Data Home Medications ?Medication ?Instructions ?Recorded ?Confirmed cholecalciferol (vitamin D3) 25 25 mcg PO DAILY 07/29/20 02/22/24 mcg (1,000 unit) capsule furosemide 20 mg tablet (Lasix) 20 mg PO DAILY 07/29/20 02/22/24 gabapentin 300 mg capsule 300 mg PO TID 10/07/20 02/22/24 quetiapine 300 mg tablet (Seroquel) 300 mg PO DAILY 10/07/20 02/22/24 buspirone 10 mg tablet 10 mg PO TID 08/24/23 02/22/24 Previous Rx's ?Medication ?Instructions ?Recorded lidocaine 5 % topical patch 1 patch topical DAILY 30 days #30 12/01/23 ea trazodone 100 mg tablet 100 mg PO BEDTIME #20 tabs 01/11/24 amoxicillin 875 mg tablet 875 mg PO BID 14 days #28 tabs 02/22/24 amlodipine 10 mg tablet 10 mg PO DAILY 90 days #90 tabs 03/20/24 atorvastatin 40 mg tablet 40 mg PO BEDTIME 90 days #90 tabs 03/20/24 carvedilol 6.25 mg tablet 6.25 mg PO BID #180 tabs 03/20/24 lisinopril 20 mg tablet 20 mg PO DAILY 90 days #90 tabs 03/20/24 omeprazole 40 mg capsule,delayed 40 mg PO DAILY 90 days #90 caps 03/20/24 release Allergies Allergy/AdvReac Type Severity Reaction Status Date / Time No Known Allergies Allergy Verified 03/21/24 11:42 [No Known Allergies*] bees Allergy Unknown swelling Uncoded 03/21/24 11:42 and difficulty breathing Review of Systems 2 Review of Systems: Constitutional : No Weight loss, No Fever, No Chills ENT/Mouth : No sore throat, No Rhinorrhea Eyes: No Eye Pain, No Swelling Cardiovascular : pos Chest Pain, no SOB, no Dyspnea on Exertion, No Orthopnea, No Edema, No Palpitations Respiratory : No Cough, No Sputum Gastrointestinal : pos Nausea, No Vomiting, No Diarrhea, No abdominal Pain, No Hematochezia, No Melena Genitourinary : No Dysuria, No Urinary Frequency Musculoskeletal : No joint pain, No Myalgias, No Joint Swelling Skin : No Skin Lesions, No rash Neuro : pos Weakness, pos Numbness, No Dizziness, No Headache Psych : No Anxiety/Panic, No Depression All other systems reviewed and are negative PMFSH Past Medical History Attestation statement: The following information was validated with the patient. Source: old records reviewed Medical History CKD (chronic kidney disease) stage 3, GFR 30-59 ml/min Cardiomyopathy Bipolar 1 disorder CHF (congestive heart failure) Family History Family History Father No problems noted. Mother No problems noted. Other Mental health disorder Substance use disorder Social History Social History Household Members: Family Household Members Other:: mother Housing: [facility] Do you presently have visiting nurse or other home services: No Alcohol intake: current Alcohol intake frequency: 0-2 drinks per day Alcohol type: hard liquor Patient Tobacco Use Status: Never used Tobacco e-Cigarette/Vaping Use: Never Used Substance Use Type: Crack/Cocaine and Marijuana Advance Directives: Yes Advance Directives on File: Yes Advance Directives Date on File: 04/24/21 Do you have a plan to hurt others: No Plan service: No Current occupational status: retired and disabled 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 Oriented X3. No acute distress. Eyes: Pupils equal, round and reactive to light. ENT: Pharynx normal. Atraumatic Neck: Normal inspection. Neck supple. CVS: Normal heart rate and rhythm. Pulses normal. Respiratory: No respiratory distress. Breath sounds normal. Abdomen: Soft and nontender. Skin: Skin warm and dry. Normal skin color. Normal skin turgor. Extremities: No lower extremity edema. No calf ttp Neuro: Oriented X 3. L arm mild drift, reports L arm feels funny but can feel my hand, distal pulses intact, L radial pulse 2+ has pain with any ROM in L arm, mild slurred speech Medications Administered Discontinued Medications Generic Name Dose Route Start Last Admin Trade Name Neerajq PRN Reason Stop Dose Admin Aspirin 324 mg 03/21/24 13:06 03/21/24 13:11 Aspirin 81 Mg Tab.Chew PO 03/21/24 13:07 Not Given ONCE ONE Sodium Chloride 500 mls @ 500 mls/hr 03/21/24 12:44 03/21/24 13:08 Ns IV 03/21/24 13:43 500 mls/hr .Q1H ONE Administration Iohexol 100 ml 03/21/24 11:54 03/21/24 11:54 Iohexol 350 Mg/Ml 100 Ml Infus..Btl IV 03/21/24 11:55 70 ml ONCE ONE Administration Medical Decision Making Medical Decision Making [facility] Narrative: 48 yo male with PMH of anemia, cardiomyopathy EF 44% Oct 2023, CKD last Cr 1.29, HTN, HLD, noncompliance with meds, bipolar, GERD, cocaine abuse reportedly used 3 days ago sniffs it here with NIH 3 L arm symptoms and slurred speech at this time he will need stroke protocol, last Cr normal will obtain CTA for dissection. He has chronic chest pain - states it is worse than usual will obtain trop x 2, EKG. Will consult Neurology about TNK though his cocaine use and concern for spasm is present. His last known well time has changed from 8am to 6am and we cannot get a real time 6am would put him out of the TNK window. At this time he is too high risk given story inconsistencies to give TNK in my opinion given the timeline has changed. He noted symptoms upon waking at 11am Differential Diagnosis Differential Diagnoses: The differential diagnosis associated with the presentation includes chest pain, cocaine abuse, spasm, stroke Admission/Observation Consideration of admission/observation: Escalation of care including admission/observation considered will admit for further workup Consult Healthcare Provider Management of the patient was discussed with: Hospitalist (will admit) and Boat Person (Neurology - no TNK) spoke to stroke neurology - at this time NIH 3, given history and cocaine abuse hold off TNK. Lab Data [facility] Lab Attestation statement: I reviewed the patient's lab results. 03/21/24 11:48 03/21/24 11:48 Labs: Lab Results 03/21/24 03/21/24 03/21/24 Range/Units 11:40 11:41 11:48 WBC 8.8 (4.8-10.8) X10*3/uL RBC 4.74 (4.60-5.80) X10*6/uL Hgb 12.7 L (14.0-18.0) g/dl Hct 39.5 L (42.0-52.0) % MCV 83.3 (80.0-98.0) fL MCH 26.8 L (27.0-33.0) pg MCHC 32.2 (31.0-36.0) g/dl RDW 15.6 (11.0-16.0) % Plt Count 281 D (160-400) X10*3/uL MPV 8.7 L (9.4-12.4) fL Immature Gran % (Auto) 0.3 (0.0-0.4) % Neut % (Auto) 73.0 (45-73) % Lymph % (Auto) 15.9 L (20-40) % [place] % (Auto) 8.0 (2-11) % Eos % (Auto) 2.2 (0-4) % Baso % (Auto) 0.6 (0-2) % Lymph # (Auto) 1.4 (1.2-4.9) X10*3/uL [place] # (Auto) 0.7 (0.1-1.2) X10*3/uL Eos # (Auto) 0.2 (0.0-0.4) X10*3/uL Baso # (Auto) 0.1 (0.0-0.2) X10*3/uL Abs Immat Gran (auto) 0.03 (0.00-0.03) X10*3/uL Absolute Neuts (auto) 6.4 (2.0-8.3) x10*3/uL Absolute Nucleated RBC 0.000 (0.0-0.012) X10*3/uL Nucleated RBC % (auto) 0.0 (0.0-0.2) /100WBC PT 10.8 L (11.1-13.3) SEC Whole Blood PT 12.3 (11.1-13.5) sec INR 0.9 (0.9-1.1) Whole Blood INR 1.0 (0.9-1.1) APTT 29.1 (26.0-36.8) SEC Sodium 138 (135-145) mmol/L Potassium 4.1 (3.3-5.1) mmol/L Chloride 104 (96-108) mmol/L Carbon Dioxide 26 (22-29) mmol/L Anion Gap 12 (12-20) BUN 23 H (9-16) mg/dL Creatinine 1.55 H (0.5-1.4) mg/dL Estim Creat Clear Calc 67.8 Estimated GFR 48 POC Glucose 118 H (60-115) mg/dL Random Glucose 119 H (60-115) mg/dL Estimat Average Glucose mg/dL Hemoglobin A1c % (<6.0) % Calcium 9.7 (8.4-10.2) mg/dL Magnesium 1.9 (1.6-2.6) mg/dL Total Bilirubin 0.6 (0.0-1.0) mg/dL Direct Bilirubin 0.2 (0.0-0.5) mg/dL AST 18 (5-37) U/L ALT 21 (0-40) U/L Alkaline Phosphatase 71 (39-117) U/L Troponin I High Sens 3.7 (<3.5-35.0) ng/L Total Protein 7.2 (6.5-8.0) g/dL Albumin 4.1 (3.5-5.0) g/dL Triglycerides (<150) mg/dL Cholesterol (<200) mg/dL LDL Cholesterol, Calc (<100) mg/dL HDL Cholesterol (>40) mg/dL Urine Color Urine Appearance Urine pH (5.0-9.0) Ur Specific [place] (1.005-1.025) Urine Protein (Neg-Trace) mg/dL Urine Glucose (UA) (Negative) mg/dL Urine Ketones (Negative) mg/dL Urine Blood (Negative) Urine Nitrite (Negative) Ur Leukocyte Esterase (Negative) Urine Opiates Screen (Not Detect) Ur Buprenorphine Scrn (Not Detect) ng/mL Ur Oxycodone Screen (Not Detect) ng/mL Urine Methadone Screen (Not Detect) ng/mL Urine Fentanyl Screen (Not Detect) Ur Barbiturates Screen (Not Detect) Ur Phencyclidine Scrn (Not Detect) Ur Amphetamines Screen (Not Detect) U Benzodiazepines Scrn (Not Detect) Urine Cocaine Screen (Not Detect) U Marijuana (THC) Screen (Not Detect) Ethyl Alcohol < 10 mg/dL Influenza Type A (PCR) NEGATIVE (Negative) Influenza Type B (PCR) NEGATIVE (Negative) RSV RNA Qual (PCR) NEGATIVE (Negative) SARS-CoV-2 RNA (RT-PCR) NEGATIVE (Negative) 03/21/24 03/21/24 Range/Units 12:25 14:06 WBC (4.8-10.8) X10*3/uL RBC (4.60-5.80) X10*6/uL Hgb (14.0-18.0) g/dl Hct (42.0-52.0) % MCV (80.0-98.0) fL MCH (27.0-33.0) pg MCHC (31.0-36.0) g/dl RDW (11.0-16.0) % Plt Count (160-400) X10*3/uL MPV (9.4-12.4) fL Immature Gran % (Auto) (0.0-0.4) % Neut % (Auto) (45-73) % Lymph % (Auto) (20-40) % [place] % (Auto) (2-11) % Eos % (Auto) (0-4) % Baso % (Auto) (0-2) % Lymph # (Auto) (1.2-4.9) X10*3/uL [place] # (Auto) (0.1-1.2) X10*3/uL Eos # (Auto) (0.0-0.4) X10*3/uL Baso # (Auto) (0.0-0.2) X10*3/uL Abs Immat Gran (auto) (0.00-0.03) X10*3/uL Absolute Neuts (auto) (2.0-8.3) x10*3/uL Absolute Nucleated RBC (0.0-0.012) X10*3/uL Nucleated RBC % (auto) (0.0-0.2) /100WBC PT (11.1-13.3) SEC Whole Blood PT (11.1-13.5) sec INR (0.9-1.1) Whole Blood INR (0.9-1.1) APTT (26.0-36.8) SEC Sodium (135-145) mmol/L Potassium (3.3-5.1) mmol/L Chloride (96-108) mmol/L Carbon Dioxide (22-29) mmol/L Anion Gap (12-20) BUN (9-16) mg/dL Creatinine (0.5-1.4) mg/dL Estim Creat Clear Calc Estimated GFR POC Glucose (60-115) mg/dL Random Glucose (60-115) mg/dL Estimat Average Glucose 114 mg/dL Hemoglobin A1c % 5.6 (<6.0) % Calcium (8.4-10.2) mg/dL Magnesium (1.6-2.6) mg/dL Total Bilirubin (0.0-1.0) mg/dL Direct Bilirubin (0.0-0.5) mg/dL AST (5-37) U/L ALT (0-40) U/L Alkaline Phosphatase (39-117) U/L Troponin I High Sens 3.6 (<3.5-35.0) ng/L Total Protein (6.5-8.0) g/dL Albumin (3.5-5.0) g/dL Triglycerides 67 (<150) mg/dL Cholesterol 172 (<200) mg/dL LDL Cholesterol, Calc 110 H (<100) mg/dL HDL Cholesterol 49 (>40) mg/dL Urine Color Yellow Urine Appearance Clear Urine pH 5.5 (5.0-9.0) Ur Specific [place] >= 1.030 H (1.005-1.025) Urine Protein Trace (Neg-Trace) mg/dL Urine Glucose (UA) Negative (Negative) mg/dL Urine Ketones Negative (Negative) mg/dL Urine Blood Negative (Negative) Urine Nitrite Negative (Negative) Ur Leukocyte Esterase Negative (Negative) Urine Opiates Screen Not Detected (Not Detect) Ur Buprenorphine Scrn Not Detected (Not Detect) ng/mL Ur Oxycodone Screen Not Detected (Not Detect) ng/mL Urine Methadone Screen Not Detected (Not Detect) ng/mL Urine Fentanyl Screen Not Detected (Not Detect) Ur Barbiturates Screen Not Detected (Not Detect) Ur Phencyclidine Scrn Not Detected (Not Detect) Ur Amphetamines Screen Not Detected (Not Detect) U Benzodiazepines Scrn Not Detected (Not Detect) Urine Cocaine Screen POSITIVE H (Not Detect) U Marijuana (THC) Screen POSITIVE H (Not Detect) Ethyl Alcohol mg/dL Influenza Type A (PCR) (Negative) Influenza Type B (PCR) (Negative) RSV RNA Qual (PCR) (Negative) SARS-CoV-2 RNA (RT-PCR) (Negative) Independent Interpretation I performed an independent interpretation of an: EKG and CT Scan (no ICH, dissection, LVO) Interpretation: Rate: 76 Rhythm: NSR [place]: left Normal P waves. Normal HERVE. Normal QRS complex. ST T wave : no GAUTAM, inverted t wave III qTC: 456 prior studies: no acute ischemia The study has been interpreted contemporaneously by me. . Radiology Impression Discussion of test interpretation with radiology: I discussed test interpretation with the radiologist and I have reviewed the radiologist's reading. Radiologist Impression: 12pm negative dry CT head 1239pm no LVO no dissection Independent Historian Clinical information obtained from an independent historian. History obtained from or confirmed by: EMS External Record Review External record reviewed: Office record and Prior outpatient labs NIH Stroke Scale Internal: Initial- Upon Arrival Level of Consciousness: Alert Level of Consciousness Questions: Answers both questions correctly Level of Consciousness Commands: Performs both tasks correctly Best Gaze: Normal Visual: No visual loss Facial Palsy: Normal Motor Arm (Right): No drift Motor Arm (Left): Drift Motor Leg (Right): No drift Motor Leg (Left): No drift Limb Ataxia: Absent Sensory: Mild to moderate sensory loss Best Language: No aphasia Dysarthia: Mild to moderate dysarthria Extinction and Inattention: No abnormality Score: 3 Critical Care Time Critical Care Time Critical Care Time: Yes Total Critical Care Time: 40 Attestation: review of records, consult, stroke protocol I attest to this time spent taking care of the patient Discharge Plan Discharge Clinical Impression: Left arm weakness, Slurring of speech, Cocaine abuse, Atypical chest pain Patient Disposition: Admitted As Inpatient Print Language: Macedonian
[2024-03-21 11:45] LABS: Glucose, Whole Blood 118 mg/dL (60-115)
[2024-03-21 11:52] LABS: MANUAL DIFF FLAG NO
[2024-03-21 11:54] LABS: Basophils Absolute Auto 0.1 X10*3/uL (0.0-0.2); Basophils Percent Auto 0.6 % (0-2); Eosinophils Absolute Auto 0.2 X10*3/uL (0.0-0.4); Eosinophils Percent Auto 2.2 % (0-4); Hematocrit 39.5 % (42.0-52.0); Hemoglobin 12.7 g/dl (14.0-18.0); Imm Gran Abs Auto 0.03 X10*3/uL (0.00-0.03); Imm Gran Pct Auto 0.3 % (0.0-0.4); Lymphocytes Absolute Auto 1.4 X10*3/uL (1.2-4.9); Lymphocytes Percent Auto 15.9 % (20-40); Mean Corpuscular HGB Conc 32.2 g/dl (31.0-36.0); Mean Corpuscular Hemoglobin 26.8 pg (27.0-33.0); Mean Corpuscular Volume 83.3 fL (80.0-98.0); Mean Platelet Volume 8.7 fL (9.4-12.4); Monocytes Absolute Auto 0.7 X10*3/uL (0.1-1.2); Neutrophils Absolute Auto 6.4 x10*3/uL (2.0-8.3); Platelet Count 281 X10*3/uL (160-400); Red Blood Count 4.74 X10*6/uL (4.60-5.80); Red Cell Distribution Width 15.6 % (11.0-16.0); White Blood Count 8.8 X10*3/uL (4.8-10.8)
[2024-03-21] MEDS: iohexoL 350 MG/ML 100 ML INFUS..BTL IV (11:54)
[2024-03-21 12:02] LABS: INTERNATIONAL NORM RATIO 0.9 (0.9-1.1); Prothrombin Time 10.8 SEC (11.1-13.3)
[2024-03-21 12:04] VITALS: BP 137/108; BP 155/95; PULSE 79; RESP 18; O2SAT 98
[2024-03-21 12:05] LABS: Partial Thromboplastin Time 29.1 SEC (26.0-36.8)
--- NOTE | 2024-03-21 12:09 | PC.NURSE ---
pt returned from CT at this time. pt remains alert and oriented. vss and up to date aside from remaining hypertensive. pt verbalizes not taking BP medication this am. nsr on the nurse monitoring. slur in speech seems to be decreasing at this time. pt still verbalizing 7/10 pain in sternal region - nonradiating. c/p worsens w/ deep inspiration. pt states numbness/tingling in LUE decreasing at this time. decreased sensation still noted in left side but seems to be improving at this time. otherwise neuros intact. face symmetrical. nursing swallow evaluation at this time. pt passed w/o complications. no signs of distress/difficulty in swallowing at this time. no sob/wob noted. respirations even/unlabored. plan of care ongoing. call morelos placed within reach.
[2024-03-21 12:11] LABS: Prothrombin Time Whole Bld POC 12.3 sec (11.1-13.5)
--- NOTE | 2024-03-21 12:11 | MHC.STROKE ---
Stroke alert called on patient. Pt was in CT scan when I arrived to ED. Pt is awake, alert and oriented. Attempted to establish timeline of symptoms. Pt reports that he felt ok yesterday. States that he vomited after dinner x 1 around 8pm and didn't sleep well secondary to dental pain. Reports that he didn't fall asleep until 4am. States that he woke at 6am and ate a piece of pie and went back to bed until 11am. At that time pt reports not feeling well. He states that he has chest pressure with numbness/tingling to arm. He reported that he thought that his speech was funny. Of note, he reported to provider and primary RN that he woke around 8am ate the pie and went back to sleep. He reports using marijuana last night and cocaine 3 days ago. Denies ETOH Alert and oriented x3. answering questions appropriately. Speech is slower but comprehensible. Hand grasp slightly weaker on the left. Good sensation to all limbs. Able to move lower extremities without difficulty. Tongue midline. Neurology contacted by provider. Due to recent Cocaine use, TNK not given. Stroke Education completed with patient. Will continue to assist as needed.
[2024-03-21 12:20] LABS: Troponin-I High Sensitivity 3.7 ng/L (<3.5-35.0)
[2024-03-21 12:30] LABS: Influenza A PCR NEGATIVE (Negative); Influenza B PCR NEGATIVE (Negative); Resp Syncy Virus RNA Qual PCR NEGATIVE (Negative); SARS COV2 PCR INHOUSE NEGATIVE (Negative)
[2024-03-21 12:35] LABS: Appearance Urine Clear; Color Urine Yellow; Glucose Urine UA Negative (Negative); Leukocyte Esterase Urine Negative (Negative); Nitrite Urine Negative (Negative); PH 5.5 (5.0-9.0); Specific Gravity - Urine >= 1.030 (1.005-1.025); Urine Blood Negative (Negative); Urine Ketones Negative (Negative); Urine Protein Trace mg/dL (Neg-Trace)
[2024-03-21 12:43] LABS: Alanine Aminotransferase 21 U/L (0-40); Albumin Level 4.1 g/dL (3.5-5.0); Alkaline Phosphatase 71 U/L (39-117); Anion Gap 12 (12-20); Aspartate Amino Transferase 18 U/L (5-37); Bilirubin Direct 0.2 mg/dL (0.0-0.5); Bilirubin Total 0.6 mg/dL (0.0-1.0); Blood Urea Nitrogen 23 mg/dL (9-16); Calcium 9.7 mg/dL (8.4-10.2); Carbon Dioxide 26 mmol/L (22-29); Chloride 104 mmol/L (96-108); Creatinine Clr Calc Pharmacy 67.8; Estimated Glomerular Filt Rate 48; Ethanol < 10 mg/dL; Glucose Random 119 mg/dL (60-115); Magnesium 1.9 mg/dL (1.6-2.6); Potassium 4.1 mmol/L (3.3-5.1); Sodium 138 mmol/L (135-145); Total Protein 7.2 g/dL (6.5-8.0)
[2024-03-21 12:54] LABS: Amphetamine Screen Urine Not Detected (Not Detect); Barbiturates, Urine Not Detected (Not Detect); Benzodiazepines Screen Urine Not Detected (Not Detect); Buprenorphine Scr Not Detected (Not Detect); Cannabinoid Screen Urine POSITIVE (Not Detect); Cocaine Screen Urine POSITIVE (Not Detect); Fentanyl, urine Not Detected (Not Detect); Methadone Screen, Urine Not Detected (Not Detect); Opiate Screen Urine Not Detected (Not Detect); Oxycodone Screen Urine Not Detected (Not Detect); Phencyclidine Screen Urine Not Detected (Not Detect)
[2024-03-21] MEDS: 0.9 % Sodium Chloride 500 ML IV (13:08)
--- NOTE | 2024-03-21 13:11 | PC.NURSE ---
324mg ASA ordered by ED provider - when educating pt - pt verbalizes 324mg ASA administered en route to ED. unaware by this RN. provider notified/aware. medication not given by this RN/charted against. IVF administered per provider order.
[2024-03-21 14:32] LABS: Cholesterol 172 mg/dL (<200); HDL Cholesterol 49 mg/dL (>40); LDL Cholesterol Calculated 110 mg/dL (<100); Triglycerides 67 mg/dL (<150)
[2024-03-21 14:33] LABS: Estimated Average Glucose 114 mg/dL; Hemoglobin A1c % 5.6 % (<6.0)
[2024-03-21 14:39] LABS: Troponin-I High Sensitivity 3.6 ng/L (<3.5-35.0)
--- NOTE | 2024-03-21 15:42 | PM.IMHP ---
History of Present Illness Date of Service: 03/21/24 Attending physician on admission: Parth Ritchie Chief Complaint: slurred speech, LUE weakness/numbness 48-year-old male with history of cardiomyopathy, CKD stage 3, congestive heart failure, hypertension, hyperlipidemia, GERD, cocaine abuse, bipolar disorder presented to ED earlier today via EMS for evaluation of stroke-like symptoms. He states he woke up this morning around 06:00 in [place] without any symptoms. However went back to bed and awoke at 11:00 with symptoms of slurred speech, left upper extremity weakness and paresthesias. He states he was also confused with word-finding difficulty at that time. He lives with his mother who also noted the symptoms. They called EMS and was transferred to the ED. EMS administered 324 mg aspirin. He states at that time he also had epigastric pain radiating into the chest. Reports he has had left lower gum/jaw pain with left sided facial swelling ongoing two days and suspects dental infection. Took ibuprofen and tylenol last night and vomited x1. Reports was recently treated with 14 day course of amoxicillin prescribed by PCP for dental abscess in upper front tooth which he completed. No fevers, chills, hematemesis, melena, hematochezia, diarrhea, constipation, lightheadedness, headache, facial droop, shortness of breath, urinary symptoms. Denies history of CVA. Reports compliance with all medications. Reports cocaine use 3 days ago and regular marijuana use. Otherwise no illicit substances or cigarettes. Reports 1-2 hard alcohol beverages per day. Since arrival, has been hypertensive with blood pressure 155/95 on admission. No leukocytosis. Stable normocytic anemia with H/H 12.7/39.5%. Creatinine slightly bumped from baseline at 1.55, but no ERIN. BUN 23, electrolyte levels normal. Hemoglobin A1c 5.6. Troponins detectable but flat 3.7, 3.6.. LDL 110, total cholesterol 172. Urinalysis unremarkable. Urine tox screen positive for cocaine and THC. Negative for COVID, flu, RSV. Head CT negative for acute intracranial abnormality. CTA of the head/neck negative for proximal vessel occlusion or high-grade stenosis. He will be admitted for further management of CVA. Review of Systems Review of Systems: Yes all other systems are reviewed and are negative [facility] Medical History (Updated 03/21/24 @ 15:54 by JENNY Dow) Hiatal hernia Chronic GERD Hypertension, essential Cocaine abuse CKD (chronic kidney disease) stage 3, GFR 30-59 ml/min Cardiomyopathy Bipolar 1 disorder CHF (congestive heart failure) Family History Father No problems noted. Mother No problems noted. Other Mental health disorder Substance use disorder Social History Household Members: Family Household Members Other:: mother Housing: Condominium Do you presently have visiting nurse or other home services: No Alcohol intake: current Alcohol intake frequency: 0-2 drinks per day Alcohol type: hard liquor Patient Tobacco Use Status: Never used Tobacco e-Cigarette/Vaping Use: Never Used Substance Use Type: Crack/Cocaine and Marijuana Advance Directives: Yes Advance Directives on File: Yes Advance Directives Date on File: 04/24/21 Do you have a plan to hurt others: No Plan service: No Current occupational status: retired and disabled 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 Cognitive needs: No Hearing needs: No Vision needs: Yes (glasses) Meds Allergies Allergy/AdvReac Type Severity Reaction Status Date / Time No Known Allergies Allergy Verified 03/21/24 11:42 [No Known Allergies*] bees Allergy Unknown swelling Uncoded 03/21/24 11:42 and difficulty breathing Active Medications: Current Medications Acetaminophen (Acetaminophen 325 Mg Tablet) 650 mg PO Q6H PRN PRN Reason: Pain, Mild (Pain Scale 1-3), fever or headache Aspirin (Aspirin Enteric Coated 81 Mg Tablet.) 81 mg PO DAILY PENDING SALE TO [facility] Atorvastatin Calcium (Atorvastatin Calcium 80 Mg Tablet) 80 mg PO DAILY PENDING SALE TO [facility] Calcium Carbonate (Calcium Carbonate 750 Mg Tab.Chew) 750 mg PO Q4H PRN PRN Reason: Heartburn Enoxaparin Sodium (Enoxaparin Sodium 40 Mg/0.4 Ml Syringe) 40 mg SUBCUT Q24H GHADA Ampicillin Sodium/Sulbactam (Sodium 3 gm/ Sodium Chloride) 100 mls @ 200 mls/hr IV Q6H GHADA Magnesium Hydroxide (Milk Of Magnesia 30 Ml Oral.Susp) 30 ml PO DAILY PRN PRN Reason: Constipation Melatonin (Melatonin 3 Mg Tablet) 6 mg PO BEDTIME PRN PRN Reason: Insomnia Oxycodone HCl (Oxycodone Hcl Immed Release 5 Mg Tablet) 5 mg PO Q6H PRN PRN Reason: Pain, Severe (Pain Scale 7-10) Sodium Chloride (0.9 % Sodium Chloride Flush 3 Ml Syringe) 3 ml IVFLUSH QSHIFT PENDING SALE TO [facility] Home Medications ?Medication ?Instructions ?Recorded ?Confirmed ?Last Taken ?Type furosemide 20 mg tablet (Lasix) 20 mg PO DAILY PRN Ankle Swelling 07/29/20 03/21/24 Unknown History gabapentin 300 mg capsule 300 mg PO TID 10/07/20 03/21/24 03/20/24 History quetiapine 300 mg tablet (Seroquel) 300 mg PO BEDTIME 10/07/20 03/21/24 03/20/24 History buspirone 10 mg tablet 20 mg PO BID 08/24/23 03/21/24 03/20/24 History acetaminophen 500 mg tablet 1,500 mg PO Q6H 03/21/24 03/21/24 03/20/24 History amlodipine 10 mg tablet 10 mg PO BEDTIME 03/21/24 03/21/24 03/20/24 History carvedilol 6.25 mg tablet 6.25 mg PO DAILY 03/21/24 03/21/24 03/20/24 History lidocaine 5 % topical patch 1 patch topical DAILY PRN Neck Pain 03/21/24 03/21/24 Unknown History omeprazole 40 mg capsule,delayed 40 mg PO BEDTIME 03/21/24 03/21/24 03/20/24 History release Physical Exam Vital Signs and Narrative: Vital Signs: Last Vital Signs Temp 98.3 F 03/21/24 11:39 Pulse 79 03/21/24 12:04 Resp 18 03/21/24 12:04 BP 155/95 H 03/21/24 12:04 Pulse Ox 98 03/21/24 12:04 O2 Del Method Room Air 03/21/24 12:04 BMI result Body Mass Index 31.2 Constitutional - Awake and Alert, No apparent distress Eyes - PERRLA, EOMI Mouth- poor dentition with broken molars. TTP along left lower gum line without appreciable fluctuance Cardiovascular - S1S2, RRR, No edema Respiratory - Normal lung expansion, Normal respiratory effort, No respiratory distress, CTA bilaterally Gastrointestinal - NT / ND; +BS; No rebound or guarding Extremities - no calf tenderness bilaterally, no swelling Skin - Warm/Dry Neurological - Alert & oriented x3, slurred speech otherwise CN II-XII in tact, 5/5 strengthRUE and BLE. 4/5 strength LUE with slight left sided pronator drift. 2+ patellar reflexes, downgoing babinski, normal heel to [place] testing Psychological - Appropriate affect Results Labs 03/21/24 11:48 03/21/24 11:48 Labs: Laboratory Results - last 24 hr 03/21/24 03/21/24 03/21/24 11:40 11:41 11:48 MCV 83.3 MCH 26.8 L MCHC 32.2 RDW 15.6 Plt Count 281 D MPV 8.7 L Immature Gran % (Auto) 0.3 Neut % (Auto) 73.0 Lymph % (Auto) 15.9 L Rice % (Auto) 8.0 Eos % (Auto) 2.2 Baso % (Auto) 0.6 Lymph # (Auto) 1.4 Rice # (Auto) 0.7 Eos # (Auto) 0.2 Baso # (Auto) 0.1 Abs Immat Gran (auto) 0.03 Absolute Neuts (auto) 6.4 Absolute Nucleated RBC 0.000 Nucleated RBC % (auto) 0.0 PT 10.8 L Whole Blood PT 12.3 INR 0.9 Whole Blood INR 1.0 APTT 29.1 Anion Gap 12 Estim Creat Clear Calc 67.8 Estimated GFR 48 POC Glucose 118 H Random Glucose 119 H Estimat Average Glucose Hemoglobin A1c % Calcium 9.7 Magnesium 1.9 Total Bilirubin 0.6 Direct Bilirubin 0.2 AST 18 ALT 21 Alkaline Phosphatase 71 Troponin I High Sens 3.7 Total Protein 7.2 Albumin 4.1 Triglycerides Cholesterol LDL Cholesterol, Calc HDL Cholesterol Urine Color Urine Appearance Urine pH Ur Specific [place] Urine Protein Urine Glucose (UA) Urine Ketones Urine Blood Urine Nitrite Ur Leukocyte Esterase Urine Opiates Screen Ur Buprenorphine Scrn Ur Oxycodone Screen Urine Methadone Screen Urine Fentanyl Screen Ur Barbiturates Screen Ur Phencyclidine Scrn Ur Amphetamines Screen U Benzodiazepines Scrn Urine Cocaine Screen U Marijuana (THC) Screen Ethyl Alcohol < 10 Influenza Type A (PCR) NEGATIVE Influenza Type B (PCR) NEGATIVE RSV RNA Qual (PCR) NEGATIVE SARS-CoV-2 RNA (RT-PCR) NEGATIVE 03/21/24 03/21/24 12:25 14:06 MCV MCH MCHC RDW Plt Count MPV Immature Gran % (Auto) Neut % (Auto) Lymph % (Auto) Rice % (Auto) Eos % (Auto) Baso % (Auto) Lymph # (Auto) Rice # (Auto) Eos # (Auto) Baso # (Auto) Abs Immat Gran (auto) Absolute Neuts (auto) Absolute Nucleated RBC Nucleated RBC % (auto) PT Whole Blood PT INR Whole Blood INR APTT Anion Gap Estim Creat Clear Calc Estimated GFR POC Glucose Random Glucose Estimat Average Glucose 114 Hemoglobin A1c % 5.6 Calcium Magnesium Total Bilirubin Direct Bilirubin AST ALT Alkaline Phosphatase Troponin I High Sens 3.6 Total Protein Albumin Triglycerides 67 Cholesterol 172 LDL Cholesterol, Calc 110 H HDL Cholesterol 49 Urine Color Yellow Urine Appearance Clear Urine pH 5.5 Ur Specific [place] >= 1.030 H Urine Protein Trace Urine Glucose (UA) Negative Urine Ketones Negative Urine Blood Negative Urine Nitrite Negative Ur Leukocyte Esterase Negative Urine Opiates Screen Not Detected Ur Buprenorphine Scrn Not Detected Ur Oxycodone Screen Not Detected Urine Methadone Screen Not Detected Urine Fentanyl Screen Not Detected Ur Barbiturates Screen Not Detected Ur Phencyclidine Scrn Not Detected Ur Amphetamines Screen Not Detected U Benzodiazepines Scrn Not Detected Urine Cocaine Screen POSITIVE H U Marijuana (THC) Screen POSITIVE H Ethyl Alcohol Influenza Type A (PCR) Influenza Type B (PCR) RSV RNA Qual (PCR) SARS-CoV-2 RNA (RT-PCR) Imaging Radiologist's Impressions: Impressions Head CT 03/21/24 11:44 IMPRESSION: No acute intracranial pathology. Results will be communicated to the emergency room, an addendum will then be issued. Head/Neck CTA 03/21/24 12:00 IMPRESSION: CTA NECK: Portions of the right common and internal carotid artery are obscured by motion. Additionally, portions of the bilateral vertebral artery V1 segments are obscured by motion. Severe stenosis of the right vertebral artery origin. Otherwise, no flow-limiting stenosis in the nondegraded aspects of the cervical carotid and vertebral arteries. Multilevel degenerative changes of the cervical spine with at least moderate spinal canal stenosis at C5-C6. CTA HEAD: No proximal vessel occlusion or high-grade stenosis. This critical result was discussed with Dr. Brown at 12:38 on 03/21/2024 and it was ascertained that the content and urgency of the report was understood at the time of direct communication. Assessment and Plan (1) Acute CVA (cerebrovascular accident): Status: Acute (2) Tooth infection: Status: Acute (3) Atypical chest pain: Status: Acute Plan 48-year-old male with history of cardiomyopathy, CKD stage 3, congestive heart failure, hypertension, hyperlipidemia, GERD, cocaine abuse, bipolar disorder admitted for further management of acute CVA #Acute CVA -CT head negative for acute intracranial abnormality. CTA head/neck negative for proximal vessel occlusion or high-grade stenosis -MRI brain ordered -given 324 mg ASA by EMS. Continue 81 mg daily -LDL 110, goal less than 70. Increase atorvastatin to 80 mg daily -hemoglobin A1c 5.6% -nursing bedside swallow eval, stroke education, neuro checks -echo performed 10/2023. Defer repeat echo to neurology -neurology consult -monitor on telemetry # acute dental abscess -IV Unasyn 3 g q.6h (initiated 03/21) -oxycodone p.r.n. for severe pain, Tylenol -no leukocytosis. No sepsis -follow CBC, cultures -outpt follow-up with dentist (reports he has a appointment later this week) # cocaine abuse -cessation advised, addiction Medicine consult # alcohol use disorder -no evidence of acute withdrawal at this time -monitor on CIWA, if scoring, consider initiating phenobarbital per protocol -IV thiamine folic acid -addiction medicine consult #Atypical chest pain/Epigastric pain -suspect gastritis vs known hiatal hernia -trops normal and flat. EKG non ischemic -add omeprazole -outpatient follow-up # heart failure reduced ejection fraction/cardiomyopathy -last echo shows EF 45%. Euvolemic on exam -continue carvedilol, furosemide # hypertension -hold antihypertensives in setting of acute CVA. Resume as appropriate # hyperlipidemia -increase atorvastatin to 80 mg daily as above # bipolar disorder -continue mood stabilizers # chronic normocytic anemia-likely related to chronic disease -H/H above transfusion threshold # CKD stage 3 -renal function baseline DVT prophylaxis-Lovenox Full code Patient requires inpatient stay at least 2 midnights for management of acute CVA requiring close monitoring with neuro checks, further advanced imaging, expert consultation, and cardiac monitoring Quality Stroke Does the patient have a stroke diagnosis?: Yes Reason for No Anti-thrombotic by Day Two: Drug treatment not indicated VTE Prior VTE?: No VTE Risk Level:: Medical - moderate - high VTE Device Contraindication: Treatment Not Indicated VTE Drug Contraindication: N/A - Med Ordered
--- NOTE | 2024-03-21 16:00 | PHA.MEDREC ---
Pharmacy Consult ? Medication Reconciliation Pharmacy has completed the medication reconciliation. Confirmed medications with patient. He confirmed he is suppose to be taking Atorvastating 40mg @bedtime but has not in a few months due to him forgetiing h
--- NOTE | 2024-03-21 16:02 | PHA.MEDREC ---
Pharmacy Consult ? Medication Reconciliation Pharmacy has completed the medication reconciliation. Confirmed medications with patient. Patient confirmed he is taking Atorvastatin 40mg tabs @ bedtime but has not taken it in a few months due to him forgetting he had the prescription but he said he should be currently taking it.
[2024-03-21 16:12] VITALS: BP 143/92; PULSE 78; RESP 9; TEMP 36.6; O2SAT 95
--- NOTE | 2024-03-21 16:31 | PC.NURSE ---
MRI form filled out/faxed/placed in pt's chart. pt being transported to MRI at this time. will resume care of pt when he returns.
--- NOTE | 2024-03-21 17:09 | MHC.SLORD ---
Speech Language Pathology Order Status: GEOLOGICAL ENGINEER consultation received. Patient to be seen by GEOLOGICAL ENGINEER tomorrow 03/22 for speech/dysarthria.
--- NOTE | 2024-03-21 17:16 | PHA.MEDREC ---
Pharmacy Consult ? Medication Reconciliation Pharmacy has completed the medication reconciliation.Patient is stating still on lasix and gabapentin, lasix was last filled in 2016, and gabapentin was last filled may 2023
[2024-03-21] MEDS: Thiamine HCL 100 MG in 0.9 % Sodium Chloride 100 ML 202 MG IV (17:55)
[2024-03-21] MEDS: Enoxaparin Sodium 40 MG/0.4 ML SYRINGE SUBCUT (17:56)
[2024-03-21] MEDS: Ampicillin Sodium/Sulbactam Na 3 GM in 0.9 % Sodium Chloride 100 ML IV ×2 (17:56→21:21)
[2024-03-21] MEDS: Folic Acid 1 MG in 0.9 % Sodium Chloride 50 ML 100.4 MG IV (17:56)
[2024-03-21] MEDS: busPIRone HCl 10 MG TABLET PO (18:17)
[2024-03-21] MEDS: Acetaminophen 325 MG TABLET 650 MG PO (18:17)
--- NOTE | 2024-03-21 18:17 | PC.NURSE ---
delay in medication administration d/t pt in being in MRI/emergent situations w/ other pts. pt now administered per provider order. pt continues to wait for bed assignment at this time. neuros remain intact. resting in no apparent distress. no sob/wob noted. respirations even/unlabored. plan of care ongoing. call morelos placed within reach.
[2024-03-21] MEDS: oxyCODONE HCl Immed Release 5 MG TABLET PO (19:49)
[2024-03-21 20:02] VITALS: BP 137/89; PULSE 81; RESP 16; TEMP 36.9; O2SAT 97
[2024-03-21] MEDS: Gabapentin 300 MG CAPSULE PO (21:21)
[2024-03-21] MEDS: traZODone HCL 100 MG TABLET PO (21:21)
[2024-03-21] MEDS: QUEtiapine Fumarate 300 MG TABLET PO (21:31)
[2024-03-21] MEDS: busPIRone HCl 10 MG TABLET 20 MG PO (21:31)
[2024-03-21] MEDS: Omeprazole 20 MG CAPSULE.DR PO (21:31)
--- NOTE | 2024-03-21 21:32 | PC.NURSE ---
pt requesting his Omeprazole at night rather than at 0630; states if he doesn't take it at night he vomits by early AM.
[2024-03-21 23:22] VITALS: BP 122/68; PULSE 85; RESP 15; TEMP 36.9; O2SAT 97
[2024-03-22 02:31] VITALS: BP 158/96; PULSE 96; RESP 18; O2SAT 100
[2024-03-22] MEDS: Acetaminophen 325 MG TABLET 650 MG PO ×2 (02:50→08:46)
[2024-03-22] MEDS: Ampicillin Sodium/Sulbactam Na 3 GM in 0.9 % Sodium Chloride 100 ML IV ×2 (02:50→11:55)
[2024-03-22] MEDS: oxyCODONE HCl Immed Release 5 MG TABLET PO ×2 (02:50→08:45)
[2024-03-22] MEDS: Melatonin 3 MG TABLET 6 MG PO (02:59)
[2024-03-22 04:56] LABS: MANUAL DIFF FLAG NO
[2024-03-22 04:58] LABS: Basophils Percent Auto 0.4 % (0-2); Eosinophils Absolute Auto 0.2 X10*3/uL (0.0-0.4); Hematocrit 33.7 % (42.0-52.0); Hemoglobin 10.9 g/dl (14.0-18.0); Imm Gran Abs Auto 0.03 X10*3/uL (0.00-0.03); Imm Gran Pct Auto 0.4 % (0.0-0.4); Lymphocytes Absolute Auto 1.2 X10*3/uL (1.2-4.9); Lymphocytes Percent Auto 16.6 % (20-40); Mean Corpuscular HGB Conc 32.3 g/dl (31.0-36.0); Mean Corpuscular Hemoglobin 26.7 pg (27.0-33.0); Mean Corpuscular Volume 82.6 fL (80.0-98.0); Mean Platelet Volume 8.9 fL (9.4-12.4); Monocytes Absolute Auto 0.6 X10*3/uL (0.1-1.2); Monocytes Percent Auto 8.5 % (2-11); Neutrophils Absolute Auto 5.3 x10*3/uL (2.0-8.3); Neutrophils Percent Auto 71.1 % (45-73); Platelet Count 253 X10*3/uL (160-400); Red Blood Count 4.08 X10*6/uL (4.60-5.80); Red Cell Distribution Width 15.3 % (11.0-16.0); White Blood Count 7.4 X10*3/uL (4.8-10.8)
[2024-03-22 05:13] VITALS: BP 116/55; PULSE 83; RESP 15; TEMP 36.6; O2SAT 98
[2024-03-22 05:24] LABS: Anion Gap 10 (12-20); Blood Urea Nitrogen 19 mg/dL (9-16); Calcium 8.7 mg/dL (8.4-10.2); Carbon Dioxide 24 mmol/L (22-29); Chloride 108 mmol/L (96-108); Creatinine Clr Calc Pharmacy 82.1; Estimated Glomerular Filt Rate 60; Glucose Random 121 mg/dL (60-115); Potassium 3.8 mmol/L (3.3-5.1); Sodium 138 mmol/L (135-145)
[2024-03-22 08:16] VITALS: BP 133/74; PULSE 90; RESP 14; TEMP 36.8; O2SAT 95
--- NOTE | 2024-03-22 08:36 | MHC.CM.PN ---
PT REPORTS HE LIVES WITH HIS MOTHER AND IS INDEPENDENT WITH CARE HE HAS NO SERVICES AND NO DME PT HAS A HCP ON FILE PCP: [facility] DCP: HOME NO SERVICES VIA SHUTTLE VS LYFT
[2024-03-22 08:39] VITALS: BP 133/74; PULSE 90; O2SAT 95
[2024-03-22] MEDS: Atorvastatin Calcium 80 MG TABLET PO (08:45)
[2024-03-22] MEDS: Thiamine HCL 100 MG in 0.9 % Sodium Chloride 100 ML 202 MG IV (08:45)
[2024-03-22] MEDS: Gabapentin 300 MG CAPSULE PO (08:46)
[2024-03-22] MEDS: Aspirin Enteric Coated 81 MG TABLET.DR PO (08:46)
[2024-03-22] MEDS: 0.9 % Sodium Chloride Flush 3 ML SYRINGE IVFLUSH (08:56)
--- NOTE | 2024-03-22 09:27 | PM.NEUROCN ---
History of Present Illness Data of Consult Service Date: 03/22/24 Primary Care Provider: Anand Aguilar MD [facility] Reason for consult: Slurred speech and arm weakness This is a 48-year-old male with history of cardiomyopathy, CKD stage 3, congestive heart failure, hypertension, hyperlipidemia, GERD, cocaine abuse, bipolar disorder who presented to ED on 03/21/24 for evaluation of stroke-like symptoms. He states he woke up this morning around 06:00 without any symptoms, went back to bed and awoke at 11:00 with symptoms of slurred speech, left upper extremity weakness and paresthesias. He states he was also confused with word-finding difficulty at that time. He lives with his mother who also noted the symptoms. EMS administered 324 mg aspirin. He states at that time he also had epigastric pain radiating into the chest. Reports he has had left lower gum/jaw pain with left sided facial swelling ongoing two days and suspects dental infection. Took ibuprofen and tylenol last night and vomited x1. Reports was recently treated with 14 day course of amoxicillin prescribed by PCP for dental abscess in upper front tooth which he completed. No fevers, chills, lightheadedness, headache, facial droop, shortness of breath, urinary symptoms. Denies history of CVA. Reports compliance with all medications. Reports cocaine use 3 days ago and regular marijuana use. Otherwise no illicit substances or cigarettes. Reports 1-2 hard alcohol beverages per day. He now feels that his speech is back to normal. The left upper extremity symptoms of numbness and weakness lasted about 24 hours and have also resolved. MRI of the brain shows no acute infarct. CTA is negative for occlusive disease PMFSH Past Medical History Medical History Hiatal hernia Chronic GERD Hypertension, essential Cocaine abuse CKD (chronic kidney disease) stage 3, GFR 30-59 ml/min Cardiomyopathy Bipolar 1 disorder CHF (congestive heart failure) Family History Family History Father No problems noted. Mother No problems noted. Other Mental health disorder Substance use disorder Social History Social History Household Members: Family Household Members Other:: mother Housing: Condominium Do you presently have visiting nurse or other home services: No Alcohol intake: current Alcohol intake frequency: holidays/special occasions only Alcohol type: hard liquor Patient Tobacco Use Status: Never used Tobacco Smoked in Last 30 Days: No e-Cigarette/Vaping Use: Never Used Use of substances other than those prescribed or required for medical reasons: Yes Substance Use Type: Crack/Cocaine and Marijuana Substance Use Frequency: Daily Last Used Substance: Days (ago) Advance Directives: Yes Advance Directives on File: Yes Advance Directives Date on File: 04/24/21 Do you have a plan to hurt others: No Plan Nutrition Risks: No Nutritional Risk service: No Current occupational status: retired and disabled 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 Cognitive needs: No Hearing needs: No Vision needs: Yes (glasses) Meds Allergies Allergy/AdvReac Type Severity Reaction Status Date / Time No Known Allergies Allergy Verified 03/21/24 11:42 [No Known Allergies*] bees Allergy Unknown swelling Uncoded 03/21/24 11:42 and difficulty breathing Active Medications: Current Medications Acetaminophen (Acetaminophen 325 Mg Tablet) 650 mg PO Q6H PRN PRN Reason: Pain, Mild (Pain Scale 1-3), fever or headache Last Admin: 03/22/24 08:46 Dose: 650 mg Aspirin (Aspirin Enteric Coated 81 Mg Tablet.Dr) 81 mg PO DAILY [facility] Last Admin: 03/22/24 08:46 Dose: 81 mg Atorvastatin Calcium (Atorvastatin Calcium 80 Mg Tablet) 80 mg PO DAILY [facility] Last Admin: 03/22/24 08:45 Dose: 80 mg Buspirone HCl (Buspirone Hcl 10 Mg Tablet) 20 mg PO BID [facility] Last Admin: 03/21/24 21:31 Dose: 20 mg Calcium Carbonate (Calcium Carbonate 750 Mg Tab.Chew) 750 mg PO Q4H PRN PRN Reason: Heartburn Enoxaparin Sodium (Enoxaparin Sodium 40 Mg/0.4 Ml Syringe) 40 mg SUBCUT Q24H [facility] Last Admin: 03/21/24 17:56 Dose: 40 mg Gabapentin (Gabapentin 300 Mg Capsule) 300 mg PO TID [facility] Last Admin: 03/22/24 08:46 Dose: 300 mg Ampicillin Sodium/Sulbactam (Sodium 3 gm/ Sodium Chloride) 100 mls @ 200 mls/hr IV Q6H [facility] Last Infusion: 03/22/24 03:48 Dose: Infused Thiamine HCl 100 mg/ Sodium (Chloride) 101 mls @ 202 mls/hr IV DAILY [facility] Last Admin: 03/22/24 08:45 Dose: 202 mls/hr Folic Acid 1 mg/ Sodium (Chloride) 50.2 mls @ 100.4 mls/hr IV DAILY [facility] Stop: 03/23/24 09:29 Last Infusion: 03/21/24 18:38 Dose: Infused Lidocaine (Lidocaine 4 % Patch Adh..Patch) 1 patch TRANSDERMA DAILY PRN PRN Reason: Neck Pain Magnesium Hydroxide (Milk Of Magnesia 30 Ml Oral.Susp) 30 ml PO DAILY PRN PRN Reason: Constipation Melatonin (Melatonin 3 Mg Tablet) 6 mg PO BEDTIME PRN PRN Reason: Insomnia Last Admin: 03/22/24 02:59 Dose: 6 mg Omeprazole (Omeprazole 20 Mg Capsule.Dr) 20 mg PO DAILY@629 [facility] Last Admin: 03/21/24 21:31 Dose: 20 mg Omeprazole (Omeprazole 40 Mg Capsule.) 40 mg PO DAILY@629 [facility] Last Admin: 03/22/24 05:46 Dose: Not Given Oxycodone HCl (Oxycodone Hcl Immed Release 5 Mg Tablet) 5 mg PO Q6H PRN PRN Reason: Pain, Severe (Pain Scale 7-10) Last Admin: 03/22/24 08:45 Dose: 5 mg Quetiapine Fumarate (Quetiapine Fumarate 300 Mg Tablet) 300 mg PO BEDTIME [facility] Last Admin: 03/21/24 21:31 Dose: 300 mg Sodium Chloride (0.9 % Sodium Chloride Flush 3 Ml Syringe) 3 ml IVFLUSH [facility] Last Admin: 03/22/24 08:56 Dose: 3 ml Trazodone HCl (Trazodone Hcl 100 Mg Tablet) 100 mg PO BEDTIME [facility] Last Admin: 03/21/24 21:21 Dose: 100 mg Home Medications ?Medication ?Instructions ?Recorded ?Confirmed ?Last Taken ?Type gabapentin 300 mg capsule 300 mg PO TID 10/07/20 03/21/24 03/20/24 History quetiapine 300 mg tablet (Seroquel) 300 mg PO BEDTIME 10/07/20 03/21/24 03/20/24 History buspirone 10 mg tablet 20 mg PO BID 08/24/23 03/21/24 03/20/24 History acetaminophen 500 mg tablet 0 mg PO Q6H 03/21/24 03/20/24 History amlodipine 10 mg tablet 10 mg PO BEDTIME 03/21/24 03/21/24 03/20/24 History carvedilol 6.25 mg tablet 6.25 mg PO BID 03/21/24 03/21/24 Unknown History lidocaine 5 % topical patch 1 patch topical DAILY PRN Neck Pain 03/21/24 03/21/24 Unknown History omeprazole 40 mg capsule,delayed 40 mg PO BEDTIME 03/21/24 03/21/24 03/20/24 History release Physical Exam Vital Signs: Vital Signs: Last Vital Signs Temp 98.3 F 03/22/24 08:16 Pulse 90 03/22/24 08:39 Resp 14 03/22/24 08:16 BP 133/74 03/22/24 08:39 Pulse Ox 95 03/22/24 08:39 O2 Del Method Room Air 03/22/24 08:16 BMI result Body Mass Index 31.2 Neuro: Other: Is alert and oriented with normal intellectual functions. His cranial nerves II through XII are normal. Muscle tone and strength are normal in all 4 extremities. Deep tendon reflexes symmetrical and plantar responses are flexor.Neck is supple Results Labs 03/22/24 04:26 03/22/24 04:26 Labs: Short CBC 03/21/24 03/22/24 Range/Units 11:48 04:26 WBC 8.8 7.4 (4.8-10.8) X10*3/uL Hgb 12.7 L 10.9 L (14.0-18.0) g/dl Hct 39.5 L 33.7 L (42.0-52.0) % Plt Count 281 D 253 (160-400) X10*3/uL BMP 03/21/24 03/22/24 11:48 04:26 Sodium 138 138 Potassium 4.1 3.8 Chloride 104 108 Carbon Dioxide 26 24 BUN 23 H 19 H Creatinine 1.55 H 1.28 Calcium 9.7 8.7 D Liver Function 03/21/24 Range/Units 11:48 Total Bilirubin 0.6 (0.0-1.0) mg/dL Direct Bilirubin 0.2 (0.0-0.5) mg/dL AST 18 (5-37) U/L ALT 21 (0-40) U/L Alkaline Phosphatase 71 (39-117) U/L Albumin 4.1 (3.5-5.0) g/dL Urine 03/21/24 Range/Units 12:25 Urine Color Yellow Urine Appearance Clear Urine pH 5.5 (5.0-9.0) Ur Specific [place] >= 1.030 H (1.005-1.025) Urine Protein Trace (Neg-Trace) mg/dL Urine Glucose (UA) Negative (Negative) mg/dL Assessment and Plan (1) Slurring of speech: Status: Acute Transients slurring of speech and arm weakness suggestive of an ischemic event, however, workup is negative with no evidence of an acute ischemic lesion in the MRI and no evidence of significant vascular disease on CTA. He does have a left her lower jaw abscess. He is counseled not to use cocaine.. Aspirin 81 mg a day. Follow up with his dentist for further management of his tooth abscess (2) Left arm weakness: Status: Acute Procedures Date of Service Date of Service: 03/22/24
[2024-03-22 10:47] VITALS: BP 137/88; PULSE 77; RESP 12; TEMP 36.7; O2SAT 97
--- NOTE | 2024-03-22 10:51 | PC.NURSE ---
Resumed care of pt at 1051. Pt moved from 22h to bed 11. A/ox4, respirations even and unlabored, S1 and S2 heard, nsr on monitor hr 70s. Pt pain 5/10, no numbness or tingling in hands or face, neuros intact. Resting in bed quietly, call morelos within reach
[2024-03-22] MEDS: Folic Acid 1 MG in 0.9 % Sodium Chloride 50 ML 100.4 MG IV (11:52)
[2024-03-22] MEDS: busPIRone HCl 10 MG TABLET 20 MG PO (11:56)
--- NOTE | 2024-03-22 12:11 | P.DS_ITS ---
DS: Providers Provider Date of Service: 03/22/24 Date of admission: 03/21/24 16:05 Primary care physician: Anand Aguilar MD Consults: 03/21/24 15:36 Addiction Medicine Routine Consulting Provider: Addiction Covering Reason for consultation: cocaine abuse--> cva 03/21/24 15:38 Consult to Neurology Routine Consulting Provider: [facility] Reason for consultation: slurred speech, LUE weak/numbness, CVA DS: Diagnosis Discharge Diagnosis (1) Slurring of speech: Status: Acute (2) Left arm weakness: Status: Acute DS: Summary Hospital Course Hospital Course: from initial hpi: 48-year-old male with history of cardiomyopathy, CKD stage 3, congestive heart failure, hypertension, hyperlipidemia, GERD, cocaine abuse, bipolar disorder pre sented to ED earlier today via EMS for evaluation of stroke-like symptoms. He states he woke up this morning around 06:00 in [place] without any symptoms. However went back to bed and awoke at 11:00 with symptoms of slurred speech, left upper extremity weakness and paresthesias. He states he was also confused with word-finding difficulty at that time. He lives with his mother who also noted the symptoms. They called EMS and was transferred to the ED. EMS administered 324 mg aspirin. He states at that time he also had epigastric pain radiating into the chest. Reports he has had left lower gum/jaw pain with left sided facial swelling ongoing two days and suspects dental infection. Took ibuprofen and tylenol last night and vomited x1. Reports was recently treated with 14 day course of amoxicillin prescribed by PCP for dental abscess in upper front tooth which he completed. No fevers, chills, hematemesis, melena, hematochezia, diarrhea, constipation, lightheadedness, headache, facial droop, shortness of breath, urinary symptoms. Denies history of CVA. Reports compliance with all medications. Reports cocaine use 3 days ago and regular marijuana use. Otherwise no illicit substances or cigarettes. Reports 1-2 hard alcohol beverages per day. Since arrival, has been hypertensive with blood pressure 155/95 on admission. No leukocytosis. Stable normocytic anemia with H/H 12.7/39.5%. Creatinine slightly bumped from baseline at 1.55, but no ERIN. BUN 23, electrolyte levels normal. Hemoglobin A1c 5.6. Troponins detectable but flat 3.7, 3.6.. LDL 110, total cholesterol 172. Urinalysis unremarkable. Urine tox screen positive for cocaine and THC. Negative for COVID, flu, RSV. Head CT negative for acute intracranial abnormality. CTA of the head/neck negative for proximal vessel occlusion or high-grade stenosis. He will be admitted for further management of CVA. hospital course: Patient was admitted for possible acute CVA/TIA. His CTA did not show any pro ximal vessel or high-grade stenosis. His MRI did not show any acute infarct. Was seen by Neurology who felt symptoms were consistent with ischemic event so will treat as TIA, continued on aspirin and statin. Was seen by PT and is not requiring any ongoing therapy, dysarthria due to dental infection not stroke, no signs of dysphagia. For dental abscess was treated with IV Unasyn will continue Augmentin on discharge and should follow up with dental as outpatient. For cocaine dependence cessation is advised. For alcohol dependence was not in and he withdrawal. For atypical chest pain was reproducible likely musculoskeletal. For chronic systolic CHF was continued on Coreg and Lasix. For hypertension blood pressure meds were held for permissive hypertension, can be restarted as outpatient. For bipolar disorder was continued on mood stabilizers. For CKD 3 renal function remained at baseline. Patient is feeling better will be discharged home. Time Attestation Discharge Coordination Time (in mins): 36 Quality: Safe Use of Opioids Does Pt have an Active Cancer Diagnosis on the Problem List?: No Quality: Stroke Does the patient have a stroke diagnosis?: Yes Reason for No Anti-thrombotic at DC: N/A - Med Ordered Reason for No Anticoagulant at DC: Drug treatment not indicated Reason Not Initiating IV-Tpa: Drug treatment not indicated Reason for No Anti-thrombotic by Day Two: N/A - Med Ordered Reason for No Statin at DC: N/A - Med Ordered Physical Exam Vital Signs: Vital Signs: Last Vital Signs Temp 98.1 F 03/22/24 10:47 Pulse 77 03/22/24 10:47 Resp 12 03/22/24 10:47 BP 137/88 03/22/24 10:47 Pulse Ox 97 03/22/24 10:47 O2 Del Method Room Air 03/22/24 10:47 BMI result Body Mass Index 31.2 General: AO X 3, no acute distress Resp: CTA bilateral, no accessory muscles used CVS: S1,S2,RRR GI: soft, non tender, non distended Neuro: motor grossly intact, alert Psych: appropriate affect, appropriate insight DS: Data Data Completed and Pending Labs on day of discharge: Laboratory Results - last 24 hr 03/21/24 03/21/24 03/21/24 11:41 11:48 12:25 WBC RBC Hgb Hct MCV MCH MCHC RDW Plt Count MPV Immature Gran % (Auto) Neut % (Auto) Lymph % (Auto) [place] % (Auto) Eos % (Auto) Baso % (Auto) Lymph # (Auto) [place] # (Auto) Eos # (Auto) Baso # (Auto) Abs Immat Gran (auto) Absolute Neuts (auto) Absolute Nucleated RBC Nucleated RBC % (auto) Whole Blood PT 12.3 Whole Blood INR 1.0 Sodium 138 Potassium 4.1 Chloride 104 Carbon Dioxide 26 Anion Gap 12 BUN 23 H Creatinine 1.55 H Estim Creat Clear Calc 67.8 Estimated GFR 48 Random Glucose 119 H Estimat Average Glucose Hemoglobin A1c % Calcium 9.7 Magnesium 1.9 Total Bilirubin 0.6 Direct Bilirubin 0.2 AST 18 ALT 21 Alkaline Phosphatase 71 Troponin I High Sens 3.7 Total Protein 7.2 Albumin 4.1 Triglycerides Cholesterol LDL Cholesterol, Calc HDL Cholesterol Urine Color Yellow Urine Appearance Clear Urine pH 5.5 Ur Specific [place] >= 1.030 H Urine Protein Trace Urine Glucose (UA) Negative Urine Ketones Negative Urine Blood Negative Urine Nitrite Negative Ur Leukocyte Esterase Negative Urine Opiates Screen Not Detected Ur Buprenorphine Scrn Not Detected Ur Oxycodone Screen Not Detected Urine Methadone Screen Not Detected Urine Fentanyl Screen Not Detected Ur Barbiturates Screen Not Detected Ur Phencyclidine Scrn Not Detected Ur Amphetamines Screen Not Detected U Benzodiazepines Scrn Not Detected Urine Cocaine Screen POSITIVE H U Marijuana (THC) Screen POSITIVE H Ethyl Alcohol < 10 Influenza Type A (PCR) NEGATIVE Influenza Type B (PCR) NEGATIVE RSV RNA Qual (PCR) NEGATIVE SARS-CoV-2 RNA (RT-PCR) NEGATIVE 03/21/24 03/22/24 14:06 04:26 WBC 7.4 RBC 4.08 L Hgb 10.9 L Hct 33.7 L MCV 82.6 MCH 26.7 L MCHC 32.3 RDW 15.3 Plt Count 253 MPV 8.9 L Immature Gran % (Auto) 0.4 Neut % (Auto) 71.1 Lymph % (Auto) 16.6 L [place] % (Auto) 8.5 Eos % (Auto) 3.0 Baso % (Auto) 0.4 Lymph # (Auto) 1.2 [place] # (Auto) 0.6 Eos # (Auto) 0.2 Baso # (Auto) 0.0 Abs Immat Gran (auto) 0.03 Absolute Neuts (auto) 5.3 Absolute Nucleated RBC 0.000 Nucleated RBC % (auto) 0.0 Whole Blood PT Whole Blood INR Sodium 138 Potassium 3.8 Chloride 108 Carbon Dioxide 24 Anion Gap 10 L BUN 19 H Creatinine 1.28 Estim Creat Clear Calc 82.1 Estimated GFR 60 Random Glucose 121 H Estimat Average Glucose 114 Hemoglobin A1c % 5.6 Calcium 8.7 D Magnesium Total Bilirubin Direct Bilirubin AST ALT Alkaline Phosphatase Troponin I High Sens 3.6 Total Protein Albumin Triglycerides 67 Cholesterol 172 LDL Cholesterol, Calc 110 H HDL Cholesterol 49 Urine Color Urine Appearance Urine pH Ur Specific [place] Urine Protein Urine Glucose (UA) Urine Ketones Urine Blood Urine Nitrite Ur Leukocyte Esterase Urine Opiates Screen Ur Buprenorphine Scrn Ur Oxycodone Screen Urine Methadone Screen Urine Fentanyl Screen Ur Barbiturates Screen Ur Phencyclidine Scrn Ur Amphetamines Screen U Benzodiazepines Scrn Urine Cocaine Screen U Marijuana (THC) Screen Ethyl Alcohol Influenza Type A (PCR) Influenza Type B (PCR) RSV RNA Qual (PCR) SARS-CoV-2 RNA (RT-PCR) Discharge Plan Discharge Anticipated Discharge Date/Time: 03/22/24 12:06 Patient Disposition: Home, Self-Care Discharge Diagnosis: tia Referrals: Anand Aguilar MD [Primary Care Provider] - 1 Week Discharge Medications: New amoxicillin-pot clavulanate 875-125 mg tablet 1 tab PO BID Qty: 14 0RF aspirin 81 mg Tablet,Delayed Release (Dr/Ec) 81 mg PO DAILY Qty: 90 0RF Continued trazodone 100 mg tablet 100 mg PO BEDTIME Qty: 20 0RF atorvastatin 40 mg tablet 40 mg PO BEDTIME 90 Days Qty: 90 0RF lisinopril 20 mg tablet 20 mg PO DAILY 90 Days Qty: 90 0RF acetaminophen 500 mg Tablet 0 mg PO Q6H carvedilol 6.25 mg tablet 6.25 mg PO BID omeprazole 40 mg capsule,delayed release(DR/EC) 40 mg PO BEDTIME amlodipine 10 mg tablet 10 mg PO BEDTIME Protocol: Hold for SBP< HOLD for SBP < : 90 lidocaine 5 % adhesive patch,medicated 1 patch topical DAILY PRN (Reason: Neck Pain) Rx Instructions: leave on most painful area for up to 12 hrs gabapentin 300 mg capsule 300 mg PO TID quetiapine [Seroquel] 300 mg tablet 300 mg PO BEDTIME buspirone 10 mg tablet 20 mg PO BID Discharge Orders: Discharge Order (Routine); Ordered 03/22/24 Ordered By: Saul Belcher Diet: Advance to usual diet Activity on Discharge: As tolerated Stand Alone Forms: Patient Portal Discharge page Print Language: Khmer Care Plan Goals: recovery Health Concerns: possible tia, dental infection Plan of Treatment: treat as tia, asa and statin augmentin for dental infection, follow up with dentist avoid cocaine Assessment: see above Discharge Date/Time: 03/22/24 12:59
[2024-03-22 13:00] VITALS: BP 137/88; PULSE 77; RESP 12; TEMP 36.7; O2SAT 97
--- NOTE | 2024-03-22 14:00 | MHC.RECOVRN ---
Received Addiction Medicine consult for cocaine use. Pt dc prior to being seen.
--- NOTE | 2024-04-14 22:44 | PC.NURSE ---
LATE ENTRY ON 03/22 @0250 Tylenol was administered w/ Oxycodone for a pain score of 10.
== END 2024-03-22 12:59 | disposition home or self-care (01) | DRG 47 ==
LOC: HO.ED 13:34 → HO.EDOVER 16:07
PROVIDERS: Admitting Provider Physician Assistant; Emergency Provider Emergency Medicine; PCP Internal Medicine; Visit Provider Internal Medicine
DX: G45.9 Transient cerebral ischemic attack, unspecified (principal); I13.0 Hypertensive heart and chronic kidney disease with heart failure and stage 1 through stage 4 chronic kidney disease, or unspecified chronic kidney disease; D63.1 Anemia in chronic kidney disease; I50.22 Chronic systolic (congestive) heart failure; I42.9 Cardiomyopathy, unspecified; N18.30 Chronic kidney disease, stage 3 unspecified; F14.20 Cocaine dependence, uncomplicated; F10.20 Alcohol dependence, uncomplicated; K29.70 Gastritis, unspecified, without bleeding; K44.9 Diaphragmatic hernia without obstruction or gangrene; F31.9 Bipolar disorder, unspecified; K04.7 Periapical abscess without sinus; G83.24 Monoplegia of upper limb affecting left nondominant side; R47.81 Slurred speech; Z20.822 Contact with and (suspected) exposure to COVID-19; Z79.82 Long term (current) use of aspirin; Z79.899 Other long term (current) drug therapy
CPT/HCPCS: 0241U; 36415; 70450; 70496; 70498; 70551; 80048; 80061; 80076; 80307; 81003; 82947; 83036; 83735; 84484; 85025; 85610; 85730; 87040; 93005; 97162; 97166; 99285; J0295; J1650; J3411; Q9967

== ENCOUNTER → 2024-03-21 11:39 | Outpatient (BNV) | payer OTHER, SELFPAY | PROVIDERS: Admitting Provider Physician Assistant; Emergency Provider Emergency Medicine; PCP Internal Medicine; Visit Provider Internal Medicine | DX: I63.9 Cerebral infarction, unspecified (principal); I49.8 Other specified cardiac arrhythmias; I49.1 Atrial premature depolarization | CPT/HCPCS: 93010 ==

== ENCOUNTER → 2024-03-21 16:05 | Outpatient (BNV) | payer OTHER, SELFPAY | PROVIDERS: Admitting Provider Physician Assistant; Emergency Provider Emergency Medicine; PCP Internal Medicine; Visit Provider Internal Medicine | DX: R47.81 Slurred speech (principal); R29.898 Other symptoms and signs involving the musculoskeletal system; R53.1 Weakness | CPT/HCPCS: 99223; 99239 ==

== ENCOUNTER → 2024-03-21 16:05 | Outpatient (BNV) | payer OTHER, SELFPAY | PROVIDERS: Admitting Provider Physician Assistant; Emergency Provider Emergency Medicine; PCP Internal Medicine; Visit Provider Psychiatry & Neurology Neurology | DX: R47.81 Slurred speech (principal); R29.898 Other symptoms and signs involving the musculoskeletal system | CPT/HCPCS: 99222 ==

== ENCOUNTER 2024-06-13 09:21 | Outpatient (AMB) | payer OTHER, SELFPAY ==
--- NOTE | 2024-06-13 09:25 | MHC.PC.OV ---
Vital Signs 06/13/24 09:26 Height 5 ft 11 in Weight 209 lb BMI 29.1 BP 122/88 Blood Pressure Location Rt brachial Position Sitting Pulse 82 Pulse Source Pulse Oximeter Pulse Oximetry (%) 97 Oxygen Delivery Method Room Air Intake Visit Reasons: 3 Month f/u Allergies No Known Allergies [No Known Allergies*] Allergy (Verified 06/13/24 09:26) bees Allergy (Unknown, Uncoded 06/13/24 09:26) swelling and difficulty breathing Medication List - Last Reconciled 06/13/24 by Anand Aguilar MD acetaminophen 0 mg PO Q6H amlodipine 10 mg See Protocol PO BEDTIME aspirin 81 mg PO DAILY atorvastatin 40 mg PO BEDTIME 90 days carvedilol 6.25 mg PO BID escitalopram oxalate 10 mg PO DAILY escitalopram oxalate 5 mg PO DAILY gabapentin 300 mg PO TID lidocaine 5% 1 patch topical DAILY PRN lisinopril 20 mg PO DAILY 90 days omeprazole 40 mg PO BEDTIME quetiapine (Seroquel) 300 mg PO BEDTIME trazodone 100 mg PO BEDTIME Tobacco use date assessed: 02/22/24 Dental Screening Dental Screen Date: 02/22/24 HPI 3 Month f/u HPI Details Patient is a 48-year-old gentleman who was in [facility] Emergency room 03/21/2024 Patient have history of anemia, cardiomyopathy ejection fraction 44% October of 2023, chronic kidney disease, hypertension, noncompliance with medication off and on, bipolar disorder, GERD, cocaine abuse. He presented with a chief complaint of chest pain which started an hour ago Also verbalized to using cocaine 3 days before arrival. He complained of left arm pain and numbness along with weakness and slurred speech His blood pressure was 155/95 Neuro exam in emergency room revealed left arm mild drift, sensory grossly intact in left upper arm, Mild slurring of speech noted EKG showed no signs of ischemia CT head negative He was admitted after evaluation with stroke protocol MRI head did not show any acute infarct Neurology evaluated patient and treated him as TIA Patient was discharged 03/22/2024, at his baseline without any weakness in any extremity He was given another course of antibiotic for his tooth infection He still has not seen dentist as his tooth stopped hurting Blood pressure is stable today Anxiety stable He is on gabapentin 300 t.i.d. Taking Seroquel 300 mg at bedtime along with trazodone 100 mg and Lexapro 10 mg Medication list reviewed Follow-up 3 months REPLACED BY [facility] Medical History Hiatal hernia Chronic GERD Hypertension, essential Cocaine abuse CKD (chronic kidney disease) stage 3, GFR 30-59 ml/min Cardiomyopathy Bipolar 1 disorder CHF (congestive heart failure) Family History Father No problems noted. Mother No problems noted. 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 Ricky Cárdenas, Doreen Cardona, Jl Pedro and colleagues, with an educational keith from [employer]. Review of Systems Const Denies chills and Denies fever(s) ENT Denies epistaxis and Denies nasal discharge Card Denies chest pain Resp Denies chest congestion, Denies cough and Denies hemoptysis GI Denies diarrhea and Denies nausea Skin/Breast Denies rash Neuro Reports no additional complaints Psych Reports no additional complaints Endo Reports no additional complaints Physical exam (Primary Care) Vital Signs: Last Vital Signs Pulse 82 06/13/24 09:26 BP 122/88 06/13/24 09:26 Pulse Ox 97 06/13/24 09:26 Oxygen Delivery Method Room Air 06/13/24 09:26 BMI result Body Mass Index 29.1 Tobacco/Smoking Status: Tobacco use Status Tobacco use date assessed 02/22/24 06/13/24 09:29 Patient Tobacco Use Status Never used Tobacco 06/13/24 09:29 e-Cigarette/Vaping Use Never Used 06/13/24 09:29 Thrive Assessment: Date of Thrive Assessment Date Thrive assessed 03/22/24 06/13/24 09:29 Const General: cooperative, comfortable and no acute distress Orientation/consciousness: patient oriented x3 HENMT Head: Yes normocephalic Eyes General: appearance normal, both eyes and all related structures Neck Neck: Yes supple Resp Effort & Inspection: normal respiratory effort, no cough and no stridor Cardio Rhythm: regular rhythm Heart sounds: S1 normal heart sound present and S2 normal heart sound present Skin General skin exam: turgor normal Neuro General: patient oriented x3, tone normal and moves all extremities Extrem Right lower extremity: no edema Left lower extremity: no edema Assessment and Plan Assessment & Plan (1) Hypertension, essential: Code(s): I10 - Essential (primary) hypertension (2) Lipid disorder: Code(s): E78.9 - Disorder of lipoprotein metabolism, unspecified (3) Cardiomyopathy: Code(s): I42.9 - Cardiomyopathy, unspecified Qualifiers: Cardiomyopathy type: due to drug Qualified Code(s): I42.7 - Cardiomyopathy due to drug and external agent (4) CKD (chronic kidney disease) stage 3, GFR 30-59 ml/min: Code(s): N18.30 - Chronic kidney disease, stage 3 unspecified Qualifiers: Chronic kidney disease stage 3 subtype: stage 3a (GFR 45-59) Qualified Code(s): N18.31 - Chronic kidney disease, stage 3a (5) Bipolar 1 disorder: Code(s): F31.9 - Bipolar disorder, unspecified (6) Chronic GERD: Code(s): K21.9 - Gastro-esophageal reflux disease without esophagitis (7) Anemia: Code(s): D64.9 - Anemia, unspecified Qualifiers: Anemia type: other cause Other causes of anemia: chronic disease, other Qualified Code(s): D63.8 - Anemia in other chronic diseases classified elsewhere Plan Patient is a 48-year-old gentleman who was in [facility] Emergency room 03/21/2024 Patient have history of anemia, cardiomyopathy ejection fraction 44% October of 2023, chronic kidney disease, hypertension, noncompliance with medication off and on, bipolar disorder, GERD, cocaine abuse. He presented with a chief complaint of chest pain which started an hour ago Also verbalized to using cocaine 3 days before arrival. He complained of left arm pain and numbness along with weakness and slurred speech His blood pressure was 155/95 Neuro exam in emergency room revealed left arm mild drift, sensory grossly intact in left upper arm, Mild slurring of speech noted EKG showed no signs of ischemia CT head negative He was admitted after evaluation with stroke protocol MRI head did not show any acute infarct Neurology evaluated patient and treated him as TIA Patient was discharged 03/22/2024, at his baseline without any weakness in any extremity He was given another course of antibiotic for his tooth infection He still has not seen dentist as his tooth stopped hurting Blood pressure is stable today Anxiety stable He is on gabapentin 300 t.i.d. Taking Seroquel 300 mg at bedtime along with trazodone 100 mg and Lexapro 10 mg Medication list reviewed Follow-up 3 months 45 minutes spent in care of this patient including reviewing patient's chart and coordination of care Medications: New carvedilol 6.25 mg PO BID 180 tabs 0RF amlodipine 10 mg See Protocol PO BEDTIME 90 tabs 1RF omeprazole 40 mg PO BEDTIME 90 caps 0RF Refilled aspirin 81 mg PO DAILY 90 tabs 0RF lisinopril 20 mg PO DAILY 90 tabs 0RF 90 days atorvastatin 40 mg PO BEDTIME 90 tabs 0RF 90 days Coding Level of Care Code Est Pt Level 5 (03081) Complex EM visit Add On G2211 Diagnoses Hypertension, essential I10 Lipid disorder E78.9 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
[2024-06-13 09:26] VITALS: BP 122/88; PULSE 82; O2SAT 97; BMI 29.1
== END 2024-06-13 09:47 | disposition home or self-care (01) ==
LOC: HO.HMCC 09:21
PROVIDERS: PCP Internal Medicine; Visit Provider Internal Medicine
DX: I12.9 Hypertensive chronic kidney disease with stage 1 through stage 4 chronic kidney disease, or unspecified chronic kidney disease (principal); I42.7 Cardiomyopathy due to drug and external agent; N18.31 Chronic kidney disease, stage 3a; F31.9 Bipolar disorder, unspecified; E78.9 Disorder of lipoprotein metabolism, unspecified; K21.9 Gastro-esophageal reflux disease without esophagitis; D63.8 Anemia in other chronic diseases classified elsewhere

== ENCOUNTER → 2024-06-13 09:21 | Outpatient (BNVA) | payer OTHER, SELFPAY | PROVIDERS: PCP Internal Medicine; Visit Provider Internal Medicine | DX: I12.9 Hypertensive chronic kidney disease with stage 1 through stage 4 chronic kidney disease, or unspecified chronic kidney disease (principal); N18.31 Chronic kidney disease, stage 3a; D63.8 Anemia in other chronic diseases classified elsewhere; E78.9 Disorder of lipoprotein metabolism, unspecified; I42.7 Cardiomyopathy due to drug and external agent; F31.9 Bipolar disorder, unspecified; K21.9 Gastro-esophageal reflux disease without esophagitis | CPT/HCPCS: 99212 ==

== ENCOUNTER 2024-06-21 13:13 | Outpatient (AMB) | payer OTHER, SELFPAY ==
--- NOTE | 2024-06-21 13:15 | MHC.OFFVIS ---
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 Critical Care Unit Nurse Required: No Accompanied by: Self / Same As Patient Allergies No Known Allergies [No Known Allergies*] Allergy (Verified 06/13/24 09:26) bees Allergy (Unknown, Uncoded 06/13/24 09:26) swelling and difficulty breathing Medication List - Last Reconciled 06/21/24 by Miguelangel Castillo MD acetaminophen 500 mg PO Q6H amlodipine 10 mg See Protocol PO BEDTIME aspirin 81 mg PO DAILY atorvastatin 40 mg PO BEDTIME 90 days carvedilol 6.25 mg PO BID escitalopram oxalate 10 mg PO DAILY escitalopram oxalate 5 mg PO DAILY gabapentin 300 mg PO TID lidocaine 5% 1 patch topical DAILY PRN lisinopril 20 mg PO DAILY 90 days omeprazole 40 mg PO BEDTIME quetiapine (Seroquel) 300 mg PO BEDTIME trazodone 100 mg PO BEDTIME HPI Comments Details: [age] year gentleman with history of hypertension, chronic kidney disease, hyperlipidemia, bipolar disorder, cocaine use, recent TIA in 04/08/2024 and mild cardiomyopathy diagnosed on echocardiography in 11/09/2023. EF was 40 45%. He has been using cocaine for many years till March when he had TIA. Since then he has stopped using cocaine. He gets tachycardia and shortness of breath with minimal activities. He has a pressure-like feeling present all the time which gets worse with eating. He does have known hiatal hernia. He has been taking medications reportedly and blood pressure is well controlled. He is on lisinopril, carvedilol and amlodipine for blood pressure control. He is on atorvastatin 40 mg daily. [facility] Medical History Hiatal hernia Chronic GERD Hypertension, essential Cocaine abuse CKD (chronic kidney disease) stage 3, GFR 30-59 ml/min Cardiomyopathy Bipolar 1 disorder CHF (congestive heart failure) Family History Father No problems noted. Mother No problems noted. 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 Cognitive needs: No Hearing needs: No Vision needs: Yes (glasses) Review of Systems Const Denies chills, Denies daytime sleepiness, Denies fatigue, Denies fever(s), Denies poor appetite, Denies snoring, Denies stops breathing during sleep, Denies weakness, Denies weight gain and Denies weight loss Eyes Denies loss of vision ENT Denies dizziness and Denies hearing loss Card Denies chest pain, Denies irregular heart rhythm, Denies claudication, Denies leg edema, Denies lightheadedness, Denies palpitations, Denies dyspnea on exertion and Denies orthopnea Resp Denies cough, Denies excessive phlegm production, Denies dyspnea on exertion, Denies snoring and Denies wheezing GI Denies abdominal pain, Denies hematochezia, Denies change in bowel habits, Denies nausea and Denies vomiting Denies dysuria and Denies urinary frequency Musc Denies arthralgias, Denies muscle weakness, Denies numbness and Denies other Skin/Breast Denies nail changes and Denies rash Neuro Denies Abnormal speech present, Denies dizziness, Denies loss of vision, Denies memory loss, Denies numbness and Denies weakness Psych Denies depression and Denies memory loss Endo Denies fatigue and Denies palpitations Casey/Lymph Denies easy bruising Aller/Immun Denies wheezing Physical Exam Vital Signs: Last Vital Signs Pulse 83 06/21/24 13:16 BP 116/70 06/21/24 13:16 BMI result Body Mass Index 28.2 GENERAL APPEARANCE: in no acute distress, pleasant. NECK: no carotid bruit, no jugular venous distention. SKIN: no suspicious lesions, warm and dry. HEART: no murmurs, regular rate and rhythm. LUNGS: clear to auscultation bilaterally. ABDOMEN: soft, nontender. EXTREMITIES: no edema. PERIPHERAL PULSES: equal. NEUROLOGIC: No gross deficits, AAO X 3 Neuro Speech: No Abnormal speech present Assessment & Plan Assessment & Plan (1) Cardiomyopathy: Code(s): I42.9 - Cardiomyopathy, unspecified Category: Medical Qualifiers: Cardiomyopathy type: due to drug Qualified Code(s): I42.7 - Cardiomyopathy due to drug and external agent (2) JAFFE (dyspnea on exertion): Code(s): R06.09 - Other forms of dyspnea Category: Medical Plan [age] year gentleman with background history of substance abuse, hypertension, hyperlipidemia, bipolar disorder, mild TIA and cardiomyopathy with EF 40 45% based on echocardiography from 11/09/2023. He has stopped using cocaine in 04/08/2024 after TIA. Blood pressure is well controlled. Repeat echocardiography to see ejection fraction. Likely cause for cardiomyopathy is substance abuse. Currently on reasonable medications for cardiomyopathy. If EF is worse then we will make some changes. He has dyspnea on exertion with minimal activity and tachycardia with activities. Cocaine is well-known to accelerate atherosclerosis. I have advised him to an exercise stress test. Same medications for now otherwise. Fasting lipid panel before next visit. Follow-up in 3 months. Thank you for allowing me to participate in the care of your patient. Please feel free to contact me if you have any questions. 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
[2024-06-21 13:16] VITALS: BP 116/70; PULSE 83; BMI 28.2
== END 2024-06-21 13:42 | disposition home or self-care (01) ==
PROVIDERS: PCP Internal Medicine; Visit Provider Internal Medicine Cardiovascular Disease
DX: I42.7 Cardiomyopathy due to drug and external agent (principal); R06.09 Other forms of dyspnea
CPT/HCPCS: 99204

== ENCOUNTER → 2024-06-21 13:13 | Outpatient (BNVA) | payer OTHER, SELFPAY | PROVIDERS: PCP Internal Medicine; Visit Provider Internal Medicine Cardiovascular Disease | DX: I42.7 Cardiomyopathy due to drug and external agent (principal); R06.09 Other forms of dyspnea | CPT/HCPCS: 99202 ==

== ENCOUNTER 2024-09-22 10:30 | Outpatient (AMB) | payer OTHER, SELFPAY ==
[2024-09-22 10:33] VITALS: BP 136/82; PULSE 82; O2SAT 97; BMI 30.4
--- NOTE | 2024-09-22 10:33 | MHC.PC.OV ---
Vital Signs 09/22/24 10:33 Height 5 ft 11 in Weight 218 lb 4 oz BMI 30.4 BP 136/82 Blood Pressure Location Rt brachial Position Sitting Pulse 82 Pulse Source Pulse Oximeter Pulse Oximetry (%) 97 Oxygen Delivery Method Room Air Intake Visit Reasons: 3 months f/up Allergies No Known Allergies [No Known Allergies*] Allergy (Verified 09/22/24 10:33) bees Allergy (Unknown, Uncoded 06/13/24 09:26) swelling and difficulty breathing Medication List - Last Reconciled 09/22/24 by Anand Aguilar MD acetaminophen 500 mg PO Q6H amlodipine 10 mg See Protocol PO BEDTIME aspirin 81 mg PO DAILY atorvastatin 40 mg PO BEDTIME 90 days carvedilol 6.25 mg PO BID escitalopram oxalate 10 mg PO DAILY escitalopram oxalate 5 mg PO DAILY gabapentin 300 mg PO TID lidocaine 5% 1 patch topical DAILY PRN lisinopril 20 mg PO DAILY 90 days omeprazole 40 mg PO BEDTIME quetiapine (Seroquel) 300 mg PO BEDTIME trazodone 100 mg PO BEDTIME Tobacco use date assessed: 09/22/24 Dental Screening Dental Screen Date: 09/22/24 Did you have a dental visit in the last 12 months?: No Did you have a dental problem in the last 6 months where you did not have access to dental care?: No Was dental information given to patient?: Patient declined HPI 3 months f/up HPI Details Patient have history of anemia, cardiomyopathy ejection fraction 44% October of 2023, chronic kidney disease, hypertension, noncompliance with medication off and on, bipolar disorder, GERD, cocaine abuse. - The patient is a 49-year-old male presenting with right shoulder injury and hemorrhoidal bleeding. - Right shoulder injury: Occurred a couple of weeks ago after a fall due to dizziness. Patient notes inability to lift arm higher than shoulder level and experiences discomfort localized to the shoulder. - Hemorrhoids: Reports occasional bleeding and pain Patient has started seeing psych med prescriber all his psychiatric medications are through them Also suffers from cervical radiculopathy and take gabapentin 300 mg up to 2 times a day Blood pressure is stable at 136/82, continue medications Complaining of epigastric discomfort off and on patient is already on omeprazole 40 mg, he has missed his colonoscopy appointments couple of time New referral to gastroenterology placed for evaluation Has not used cocaine in 1 and half month Lipid disorder: Continue atorvastatin 40 mg Due for labs today Problem List - Bipolar Disorder - Anxiety Disorder - Essential Hypertension - Hyperlipidemia - Gastroesophageal Reflux Disease (GERD) - Right Shoulder Injury - Hemorrhoid - hiatal hernia/epigastric discomfort - cocaine abuse Medications - Seroquel for Bipolar Disorder - Lexapro 20 mg for Anxiety Disorder - Gabapentin for Neuropathic Pain - Amlodipine 10 mg for Hypertension - Carvedilol for Hypertension - Lisinopril for Hypertension - Aspirin for Cardiovascular Risk Reduction - Atorvastatin for Hyperlipidemia - Omeprazole for GERD - Trazodone for Anxiety and Sleep Aid [place] [facility] - Psychiatrist: Zeus Anderson for psychiatric management including Bipolar Disorder and Anxiety Review of Systems - Gastrointestinal: Reports epigastric discomfort, especially after meals. - Musculoskeletal: Reports a hard lump near the sternum and difficulty breathing sometimes; reports right shoulder pain and limited range of motion. General: No fever no chills neurological: No headaches no dizziness ear nose throat: No sore throat no hearing difficulty no ear pain cardiovascular: No syncope, no chest pain, no palpitations gastrointestinal: No nausea vomiting or diarrhea endocrine: No polyuria polydipsia no heat intolerance genitourinary: No dysuria skin: No new complaints Physical Exam general: No acute distress HEENT: No acute findings neck: Supple, but patient reports neck pain respiratory system: Able to talk in full sentences, no audible wheeze, no stridor cardiovascular: S1-S2 gastrointestinal: Reports epigastric pain and bleeding hemorrhoids extremities: Right shoulder pain with limited range of motion, possible injury from fall FINANCIAL AID MANAGER: Alert, awake, oriented x3, motor sensory intact skin: Normal turgor Patient Instructions - Begin taking two stool softeners every night to manage hemorrhoids. Adjust dose if stools become too loose. - Schedule a colonoscopy through referral for gastroenterology to assess stomach concerns. - Get an x-ray of the right shoulder to evaluate injury. - Consider flu vaccination if time permits after this visit. - Follow up with labs and book next appointment in three months - medication refills sent continue medications Follow-up 3 months COUNT INCLUDES [facility] Medical History Hiatal hernia Chronic GERD Hypertension, essential Cocaine abuse CKD (chronic kidney disease) stage 3, GFR 30-59 ml/min Cardiomyopathy Bipolar 1 disorder CHF (congestive heart failure) Family History Father No problems noted. Mother No problems noted. 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 Cognitive needs: No Hearing needs: No Vision needs: Yes (glasses) Questionnaire PHQ-9 Over the last 2 weeks, how often have you been bothered by any of the following problems? 1. Little interest or pleasure in doing things: not at all 2. Feeling down, depressed, or hopeless: not at all 3. Trouble falling or staying asleep, or sleeping too much: not at all 4. Feeling tired or having little energy: not at all 5. Poor appetite or overeating: not at all 6. Feeling bad about yourself - or that you are a failure or have let yourself or your family down: not at all 7. Trouble concentrating on things, such as reading the newspaper or watching television: nearly every day 8. Moving or speaking so slowly that other people could have noticed. Or the opposite - being so fidgety or restless that you have been moving around a lot more than usual: more than half the days 9. Thoughts that you would be better off or of hurting yourself in some way: not at all Total score: 5 Depression Screening Interpretation: Negative Depression Screening Done: Yes 98646 - PHQ-9 Billing: Yes Source: Developed by Drs. Ricky Cárdenas, Doreen Cardona, Jl Pedro and colleagues, with an educational keith from [employer] Thrive Questionnaire Date Thrive assessed: 09/22/24 I am a: Patient What is your living situation today?: I have a steady place to live Within the past 12 months, did the food you bought not last and you didn't have the money to get more?: Never true Within the past 12 months, did you worry whether your food would run out before you got money to buy more?: Never true Do you have trouble paying for medicines?: No Do you have trouble getting transportation to medical appointments?: No Do you have trouble paying your heating and electricity bill?: No Do you have trouble taking care of your child, family member or friend?: No Do you have trouble with day-to-day activities such as bathing, preparing meals, shopping, managing finances, etc.?: No Are you currently unemployed and looking for a job?: No Are you interested in more education?: No Please select the resources that you would like help with: None Currently or been in a relationship where the following occur: No concerns reported THRIVE Score: 0 AUDIT C Alcohol Use Questionnaire (AUDIT-C) 1. How often do you have a drink containing alcohol?: Monthly or less 2. How many drinks containing alcohol do you have on a typical day when you are drinking?: 1 or 2 3. How often do you have six or more drinks on one occasion?: Never Total Score: 1 Score Reviewed/Action Taken: Yes HAMZAH-7 AMB Questionnaire HAMZAH-7 Date HAMZAH - 7 assessed: 09/22/24 Feeling nervous, anxious, or on edge: 0 = Not at all Not being able to stop or control worryin = Not at all Worrying too much about different things: 0 = Not at all Trouble relaxin = Not at all Being so restless that it is hard to sit still: 0 = Not at all Becoming easily annoyed or irritable: 0 = Not at all Feeling afraid as if something awful might happen: 0 = Not at all Total HAMZAH-7 score (0-4 normal; 5-9 mild; 10-14 moderate; 15-21 severe): 0 Source: Developed by Drs. Ricky Cárdenas, Doreen Cardona, Jl Pedro and colleagues, with an educational keith from [employer] HAMZAH-7 Assessment Billing HAMZAH-7 Assessment Tool: HAMZAH-7 Assessment 12447 Physical exam (Primary Care) Vital Signs: Last Vital Signs Pulse 82 09/22/24 10:33 BP 136/82 09/22/24 10:33 Pulse Ox 97 09/22/24 10:33 Oxygen Delivery Method Room Air 09/22/24 10:33 BMI result Body Mass Index 30.4 Tobacco/Smoking Status: Tobacco use Status Tobacco use date assessed 09/22/24 09/22/24 10:36 Patient Tobacco Use Status Never used Tobacco 09/22/24 10:36 e-Cigarette/Vaping Use Never Used 09/22/24 10:36 PHQ-9: PHQ-9 Score PHQ-9: Total score 5 09/22/24 10:57 Depression Screening Interpretation: Negative Thrive Assessment: Date of Thrive Assessment Date Thrive assessed 09/22/24 09/22/24 10:36 Currently or been in a relationship where the following occur: No concerns reported Office Procedures Flu Questionnaire Does the patient have a severe egg allergy?: No Does the patient have severe life threatening allergies?: No Does the patient have a fever or illness today?: No Has the patient ever had Guillain-Twining Syndrome?: No Has the patient ever had any past reaction to a flu shot?: No Immunizations Fluarix Triv [id number] (PF) 45 mcg (15 mcg x 3)/0.5 mL IM syringe Performing Provider: Anand Aguilar MD Performing Location: [facility] Administered by: Mel Romero CMA on 09/22/24 10:57 Dose Route Admin Location Dispensed Lot Number Expiration Date [facility] Bilingual Teacher Aide 0.5 mL IM Left Deltoid 0.5 mL [id number] 03/19/25 [id number] [employer] VIS Given Date VIS Provided VIS Publication Date 09/22/24 Single Vaccine 21 Eligibility Eligibility Date Funding Source Not [facility] Eligible 09/22/24 Private Coding Level of Care Code Est Pt Level 5 (47020) Complex EM visit Add On G2211 Diagnoses Hypertension, essential I10 Fall, initial encounter W19.XXXA Encounter type: initial encounter Injury of right shoulder, initial encounter S49.91XA Encounter type: initial encounter Laterality: right Acute pain of right shoulder M25.511 Chronicity: acute Lipid disorder E78.9 Bipolar 1 disorder F31.9 Chronic GERD K21.9 Stage 3a chronic kidney disease N18.31 Chronic kidney disease stage 3 subtype: stage 3a (GFR 45-59) Cocaine abuse F14.10 Hiatal hernia K44.9 Colon cancer screening Z12.11 Additional Codes HAMZAH-7 Assessment Billing - HAMZAH-7 Assessment Tool: HAMZAH-7 Assessment 08709 ([id number]) PHQ-9 - 70418 - PHQ-9 Billing: Yes ([id number]) Assessment & Plan Assessment & Plan (1) Hypertension, essential: Code(s): I10 - Essential (primary) hypertension Category: Medical (2) Falls: Code(s): W19.XXXA - Unspecified fall, initial encounter Category: Medical Qualifiers: Encounter type: initial encounter Qualified Code(s): W19.XXXA - Unspecified fall, initial encounter (3) Shoulder injury: Code(s): S49.90XA - Unspecified injury of shoulder and upper arm, unspecified arm, initial encounter Category: Medical Qualifiers: Encounter type: initial encounter Laterality: right Qualified Code(s): S49.91XA - Unspecified injury of right shoulder and upper arm, initial encounter (4) Shoulder pain, right: Code(s): M25.511 - Pain in right shoulder Category: Medical Qualifiers: Chronicity: acute Qualified Code(s): M25.511 - Pain in right shoulder (5) Lipid disorder: Code(s): E78.9 - Disorder of lipoprotein metabolism, unspecified Category: Medical (6) Bipolar 1 disorder: Code(s): F31.9 - Bipolar disorder, unspecified Category: Medical (7) Chronic GERD: Code(s): K21.9 - Gastro-esophageal reflux disease without esophagitis Category: Medical (8) CKD (chronic kidney disease) stage 3, GFR 30-59 ml/min: Code(s): N18.30 - Chronic kidney disease, stage 3 unspecified Category: Medical Qualifiers: Chronic kidney disease stage 3 subtype: stage 3a (GFR 45-59) Qualified Code(s): N18.31 - Chronic kidney disease, stage 3a (9) Cocaine abuse: Code(s): F14.10 - Cocaine abuse, uncomplicated Category: Medical (10) Hiatal hernia: Code(s): K44.9 - Diaphragmatic hernia without obstruction or gangrene Category: Medical (11) Colon cancer screening: Code(s): Z12.11 - Encounter for screening for malignant neoplasm of colon Category: Medical Plan Patient have history of anemia, cardiomyopathy ejection fraction 44% October of 2023, chronic kidney disease, hypertension, noncompliance with medication off and on, bipolar disorder, GERD, cocaine abuse. - The patient is a 49-year-old male presenting with right shoulder injury and hemorrhoidal bleeding. - Right shoulder injury: Occurred a couple of weeks ago after a fall due to dizziness. Patient notes inability to lift arm higher than shoulder level and experiences discomfort localized to the shoulder. - Hemorrhoids: Reports occasional bleeding and pain Patient has started seeing psych med prescriber all his psychiatric medications are through them Also suffers from cervical radiculopathy and take gabapentin 300 mg up to 2 times a day Blood pressure is stable at 136/82, continue medications Complaining of epigastric discomfort off and on patient is already on omeprazole 40 mg, he has missed his colonoscopy appointments couple of time New referral to gastroenterology placed for evaluation Has not used cocaine in 1 and half month Lipid disorder: Continue atorvastatin 40 mg Due for labs today Problem List - Bipolar Disorder - Anxiety Disorder - Essential Hypertension - Hyperlipidemia - Gastroesophageal Reflux Disease (GERD) - Right Shoulder Injury - Hemorrhoid - hiatal hernia/epigastric discomfort - cocaine abuse Medications - Seroquel for Bipolar Disorder - Lexapro 20 mg for Anxiety Disorder - Gabapentin for Neuropathic Pain - Amlodipine 10 mg for Hypertension - Carvedilol for Hypertension - Lisinopril for Hypertension - Aspirin for Cardiovascular Risk Reduction - Atorvastatin for Hyperlipidemia - Omeprazole for GERD - Trazodone for Anxiety and Sleep Aid [place] [facility] - Psychiatrist: Zeus Anderson for psychiatric management including Bipolar Disorder and Anxiety Review of Systems - Gastrointestinal: Reports epigastric discomfort, especially after meals. - Musculoskeletal: Reports a hard lump near the sternum and difficulty breathing sometimes; reports right shoulder pain and limited range of motion. General: No fever no chills neurological: No headaches no dizziness ear nose throat: No sore throat no hearing difficulty no ear pain cardiovascular: No syncope, no chest pain, no palpitations gastrointestinal: No nausea vomiting or diarrhea endocrine: No polyuria polydipsia no heat intolerance genitourinary: No dysuria skin: No new complaints Physical Exam general: No acute distress HEENT: No acute findings neck: Supple, but patient reports neck pain respiratory system: Able to talk in full sentences, no audible wheeze, no stridor cardiovascular: S1-S2 gastrointestinal: Reports epigastric pain and bleeding hemorrhoids extremities: Right shoulder pain with limited range of motion, possible injury from fall FINANCIAL AID MANAGER: Alert, awake, oriented x3, motor sensory intact skin: Normal turgor Patient Instructions - Begin taking two stool softeners every night to manage hemorrhoids. Adjust dose if stools become too loose. - Schedule a colonoscopy through referral for gastroenterology to assess stomach concerns. - Get an x-ray of the right shoulder to evaluate injury. - Consider flu vaccination if time permits after this visit. - Follow up with labs and book next appointment in three months - medication refills sent continue medications Follow-up 3 months 45 minutes spent in care of this patient Orders: Orders Ferritin Today E78.9 - Disorder of lipoprotein metabolism, unspecified, F14.10 - Cocaine abuse, uncomplicated, F31.9 - Bipolar disorder, unspecified, I10 - Essential (primary) hypertension, K21.9 - Gastro-esophageal reflux disease without esophagitis, N18.31 - Chronic kidney disease, stage 3a Comprehensive Met. Panel Today E78.9 - Disorder of lipoprotein metabolism, unspecified, F14.10 - Cocaine abuse, uncomplicated, F31.9 - Bipolar disorder, unspecified, I10 - Essential (primary) hypertension, K21.9 - Gastro-esophageal reflux disease without esophagitis, N18.31 - Chronic kidney disease, stage 3a Vitamin B12 Today E78.9 - Disorder of lipoprotein metabolism, unspecified, F14.10 - Cocaine abuse, uncomplicated, F31.9 - Bipolar disorder, unspecified, I10 - Essential (primary) hypertension, K21.9 - Gastro-esophageal reflux disease without esophagitis, N18.31 - Chronic kidney disease, stage 3a TSH reflex Free T4 Today E78.9 - Disorder of lipoprotein metabolism, unspecified, F14.10 - Cocaine abuse, uncomplicated, F31.9 - Bipolar disorder, unspecified, I10 - Essential (primary) hypertension, K21.9 - Gastro-esophageal reflux disease without esophagitis, N18.31 - Chronic kidney disease, stage 3a LDL Cholesterol Direct Today E78.9 - Disorder of lipoprotein metabolism, unspecified, F14.10 - Cocaine abuse, uncomplicated, F31.9 - Bipolar disorder, unspecified, I10 - Essential (primary) hypertension, K21.9 - Gastro-esophageal reflux disease without esophagitis, N18.31 - Chronic kidney disease, stage 3a XR shoulder RT min 2V Today M25.511 - Pain in right shoulder, S49.90XA - Unspecified injury of shoulder and upper arm, unspecified arm, initial encounter Complete Blood Count Auto Diff Today E78.9 - Disorder of lipoprotein metabolism, unspecified, F14.10 - Cocaine abuse, uncomplicated, F31.9 - Bipolar disorder, unspecified, I10 - Essential (primary) hypertension, K21.9 - Gastro-esophageal reflux disease without esophagitis, N18.31 - Chronic kidney disease, stage 3a Influenza [id number] Immunization Today Z23 - Encounter for immunization Referrals Gastroenterology Referral K21.9 - Gastro-esophageal reflux disease without esophagitis, K44.9 - Diaphragmatic hernia without obstruction or gangrene, Z12.11 - Encounter for screening for malignant neoplasm of colon Medications: New docusate sodium (Colace) 200 mg (2 x 100 mg) PO BEDTIME 180 caps 0RF 90 days Refilled omeprazole 40 mg PO BEDTIME 90 caps 0RF amlodipine 10 mg See Protocol PO BEDTIME 90 tabs 1RF lisinopril 20 mg PO DAILY 90 tabs 0RF 90 days carvedilol 6.25 mg PO BID 180 tabs 0RF atorvastatin 40 mg PO BEDTIME 90 tabs 0RF 90 days
== END 2024-09-22 10:59 | disposition home or self-care (01) ==
PROVIDERS: PCP Internal Medicine; Visit Provider Internal Medicine
DX: I10 Essential (primary) hypertension (principal); W19.XXXA Unspecified fall, initial encounter; S49.91XA Unspecified injury of right shoulder and upper arm, initial encounter; M25.511 Pain in right shoulder; E78.9 Disorder of lipoprotein metabolism, unspecified; F31.9 Bipolar disorder, unspecified; K21.9 Gastro-esophageal reflux disease without esophagitis; N18.31 Chronic kidney disease, stage 3a; F14.10 Cocaine abuse, uncomplicated; K44.9 Diaphragmatic hernia without obstruction or gangrene; Z12.11 Encounter for screening for malignant neoplasm of colon; Z23 Encounter for immunization

== ENCOUNTER 2024-09-22 10:30 | Outpatient (REF) | payer OTHER, SELFPAY ==
--- NOTE | ~2024-09-22 | XR_ITS ---
EXAMINATION: XR SHOULDER 2 OR MORE VIEWS RIGHT HISTORY: S49.90XA - Unspecified injury of shoulder and upper arm, unspecified arm... COMPARISON: Comparison is made with the prior examination dated 02/27/2021. FINDINGS: Three views of the right shoulder are submitted. Osseous mineralization is normal. There is no fracture or dislocation. The joint spaces are preserved. The soft tissues are unremarkable. XR/XR shoulder RT min 2V IMPRESSION: Unremarkable examination of the right shoulder. Electronically signed by: Ricky Crane MD 09/29/2024 10:11 AM SCAR
[2024-09-22 12:56] LABS: MANUAL DIFF FLAG NO
[2024-09-22 13:09] LABS: Basophils Absolute Auto 0.1 X10*3/uL (0.0-0.2); Basophils Percent Auto 1.3 % (0-2); Eosinophils Absolute Auto 0.2 X10*3/uL (0.0-0.4); Eosinophils Percent Auto 3.5 % (0-4); Hematocrit 37.4 % (42.0-52.0); Hemoglobin 11.4 g/dl (14.0-18.0); Imm Gran Abs Auto 0.02 X10*3/uL (0.00-0.03); Imm Gran Pct Auto 0.4 % (0.0-0.4); Lymphocytes Absolute Auto 1.7 X10*3/uL (1.2-4.9); Lymphocytes Percent Auto 36.1 % (20-40); Mean Corpuscular HGB Conc 30.5 g/dl (31.0-36.0); Mean Corpuscular Hemoglobin 25.2 pg (27.0-33.0); Mean Corpuscular Volume 82.6 fL (80.0-98.0); Mean Platelet Volume 9.4 fL (9.4-12.4); Monocytes Absolute Auto 0.5 X10*3/uL (0.1-1.2); Monocytes Percent Auto 11.3 % (2-11); Neutrophils Absolute Auto 2.2 x10*3/uL (2.0-8.3); Neutrophils Percent Auto 47.4 % (45-73); Platelet Count 292 X10*3/uL (160-400); Red Blood Count 4.53 X10*6/uL (4.60-5.80); Red Cell Distribution Width 15.9 % (11.0-16.0); White Blood Count 4.6 X10*3/uL (4.8-10.8)
[2024-09-22 13:29] LABS: Alanine Aminotransferase 25 U/L (0-40); Albumin Level 4.2 g/dL (3.5-5.0); Alkaline Phosphatase 91 U/L (39-117); Anion Gap 8 (12-20); Aspartate Amino Transferase 30 U/L (5-37); Bilirubin Total 0.4 mg/dL (0.0-1.0); Blood Urea Nitrogen 13 mg/dL (9-16); Calcium 8.5 mg/dL (8.4-10.2); Carbon Dioxide 29 mmol/L (22-29); Chloride 106 mmol/L (96-108); Estimated Glomerular Filt Rate > 60; Glucose Random 98 mg/dL (60-115); Sodium 139 mmol/L (135-145); Total Protein 7.3 g/dL (6.5-8.0)
[2024-09-22 13:52] LABS: Vitamin B12 404 pg/mL (200-900)
[2024-09-22 14:06] LABS: Ferritin 6 ng/mL (20-250); TSH reflex Free T4 0.85 uIU/mL (0.32-4.0)
[2024-09-24 12:44] LABS: LDL Cholesterol Direct 49 mg/dL (<100)
== END 2024-09-22 10:31 | disposition home or self-care (01) ==
LOC: HO.HMGCX 10:30
PROVIDERS: PCP Internal Medicine; Visit Provider Internal Medicine
DX: I12.9 Hypertensive chronic kidney disease with stage 1 through stage 4 chronic kidney disease, or unspecified chronic kidney disease (principal); N18.31 Chronic kidney disease, stage 3a; S49.91XA Unspecified injury of right shoulder and upper arm, initial encounter; Z23 Encounter for immunization; E78.9 Disorder of lipoprotein metabolism, unspecified; F31.9 Bipolar disorder, unspecified; K21.9 Gastro-esophageal reflux disease without esophagitis; F14.10 Cocaine abuse, uncomplicated; K44.9 Diaphragmatic hernia without obstruction or gangrene; K64.9 Unspecified hemorrhoids; M54.12 Radiculopathy, cervical region; Z79.899 Other long term (current) drug therapy; W19.XXXA Unspecified fall, initial encounter; Y93.9 Activity, unspecified; Y92.9 Unspecified place or not applicable; Y99.9 Unspecified external cause status
CPT/HCPCS: 36415; 73030; 80053; 82607; 82728; 83721; 84443; 85025; 90471; 90656; 96127; 99212

== ENCOUNTER → 2024-09-22 11:04 | Outpatient (BNV) | payer OTHER, SELFPAY | PROVIDERS: PCP Internal Medicine; Visit Provider Radiology Diagnostic Radiology | DX: S49.90XA Unspecified injury of shoulder and upper arm, unspecified arm, initial encounter (principal) | CPT/HCPCS: 73030 ==

== ENCOUNTER → 2024-10-12 08:43 | Outpatient (REF) | payer OTHER, SELFPAY ==
--- NOTE | 2024-10-12 08:54 | CA_ITS ---
Acquisition Time: 2024-10-12 09:40:43 Total Exercise Time: 00:07:39 Test Indications: Dyspnea CP TACHYCARDIA Medications: SEE H&P Protocol: AMANUEL Max HR: 148 BPM 87% of Pred: 170 BPM Max BP: 112/78 mmHG Max Work Load: 7.3 METS Exercise Stress Test with exercise 7 mins 39 of Amanuel Protocol, held at Stage 2, increased incline to 14%, acheiving 87% MPHR, with baseline 3/10 left sided chest pressure that worsened to 6 with exercise, moderate SOB and mild dizziness, with isoated PVCs, with normotensive response to exercise. Without EKG changes meeting criteria for ischemia. In recovery, chest pressure returned to baseline, breathing normlaized and dizziness resolved. Test reviewed with Dr. Greenfield. Referred By: Miguelangel Castillo Electronically Signed By: Fernando Lewis
--- NOTE | 2024-10-12 08:54 | CA_ITS ---
Transthoracic Echocardiogram Patient (Last, First, Middle): Mannie Ford V Gender: Male Date of : 1975 Age: 49 Procedure Date: 10/12/2024 Procedure Type: Transthoracic Echocardiogram Location: OP Height: 180. 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 Normal LV ejection fraction of 60 65% with moderate LVH with pseudonormal filling pattern 2. Cardiac valvular Dopplers within normal limits 3. Normal RV systolic pressure 4. No gross pericardial effusion Findings Left Ventricle Normal left ventricular size and systolic function. There is moderately increased left ventricular wall thickness. The visually estimated ejection fraction is between 60-65%. Spectral Doppler is indicative of a pseudonormal filling pattern. E/E prime ratio is between 8 and 15 consistent with indeterminate filling pressures. Right Ventricle Normal right ventricular cavity size and systolic function. Atria The left atrium is normal in size. There is no evidence of interatrial shunt. The right atrium is normal in size. Aortic Valve The aortic valve structure and function is likely normal. There is no aortic valve stenosis. There is no aortic valve regurgitation. Mitral Valve Normal mitral valve structure and function. There is trace mitral valve regurgitation. There is no mitral valve stenosis. Pulmonic Valve The pulmonic valve is likely normal. Tricuspid Valve Normal tricuspid valve structure. There is trace tricuspid valve regurgitation. The right ventricular systolic pressure is normal. The right ventricular systolic pressure is 18 mmHg. Normal right atrial pressure. There is no evidence of pulmonary hypertension. Great Vessels All visible segments of the aorta are normal in size. The pulmonary artery was not well visualized. There is no dilatation of the ascending aorta measuring 3.30 cm. Venous The inferior vena cava is normal in size and collapses greater than 50% with inspiration. Pericardium/Pleural There is no evidence of pericardial effusion. Prior Study Comparison Changes noted compared to prior study dated: 11/01/2023. LV systolic function has normalized Measurements 2D Linear Measurements IVSd: 1.37 0.6-0.9/0.6-1.0 cm LVIDd: 4.80 3.9-5.3/4.2-5.9 cm LVIDd Index: 2.21 2.4-3.2/2.2-3.1 cm/m2 LVIDs: 3.33 2.0-3.6 cm LVPWd: 1.45 0.7-1.1 cm LA Diam: 4.00 2.7-3.8/3.0-4.0 cm LAIDs Index: 1.84 1.5-2.3 cm/m2 LV Mass: 345.13 67-162/88-224 g LV Mass Index: 159.05 43-95/49-115 g/m2 LVOT Diam: 2.30 3.0+(-)1.3 cm 2D Systolic Function EF 4C: 60.40 >55% EF 2C: 57.90 >55% EF BiP: 60.30 >55% Mitral Valve MV Pk E: 0.62 MV PK A: 0.55 MV Decel Time: 214.00 E/A: 1.10 E'Lateral: 7.07 E'Medial: 5.44 E/E' Med: 11.30 E/E' Lat: 8.70 PHT: 63.00 MVA PHT: 3.49 Decel Cameron: 2.88 Aortic Valve AoV Pk Glenn: 1.54 AoV Mn Glenn: 1.05 AoV VTI: 0.30 AoV Pk Grad: 9.00 Aov Mn Grad: 5.00 SUSAN Cont.VTI: 2.73 LVOT LVOT Pk Glenn: 1.02 LVOT Mn Glenn: 0.72 LVOT VTI: 0.20 LVOT Pk Grad: 4.00 LVOT Mn Grad: 2.00 LVOT Diam: 2.30 LVOT Area: 4.15 Diastolic Function MV Pk E: 0.62 MV Pk A: 0.55 E/A: 1.10 E'Medial: 5.44 E/E' Med: 11.30 E' Laterial: 7.07 E/E' Lat: 8.70 Right Ventricle TAPSE (mm): 24.30 TVS' Glenn: 12.00 Tricuspid Valve TR Pk Glenn: 1.94 TR Pk Grad: 15.00 RA Press: 3.00 RVSP: 18.00 Great Vessels Aorta Sinus of Valsalva: 3.70 2.0-3.5 cm Ao Asc: 3.30 2.1-3.4 cm Pulmonary Valve PV Pk Glenn: 1.01 Peak PV Grad: 4.00 Updated in Other Vendor System with Status of Final Corey Greenfield MD electronically signed on 10/12/2024 3:43:26 PM with status of Final
== END ==
LOC: HO.CARD 08:43
PROVIDERS: PCP Internal Medicine; Visit Provider Internal Medicine Cardiovascular Disease
DX: R06.09 Other forms of dyspnea (principal); I42.7 Cardiomyopathy due to drug and external agent
CPT/HCPCS: 93017; 93306

== ENCOUNTER → 2024-10-12 08:54 | Outpatient (BNV) | payer OTHER, SELFPAY | PROVIDERS: PCP Internal Medicine | DX: I42.7 Cardiomyopathy due to drug and external agent (principal); R07.2 Precordial pain; R06.02 Shortness of breath; I49.3 Ventricular premature depolarization | CPT/HCPCS: 93016; 93018; 93320; 93325; 93350 ==

== ENCOUNTER 2024-12-06 11:34 | Outpatient (REF) | payer OTHER, SELFPAY ==
[2024-12-06 13:38] LABS: MANUAL DIFF FLAG NO
[2024-12-06 13:41] LABS: Basophils Absolute Auto 0.1 X10*3/uL (0.0-0.2); Basophils Percent Auto 1.2 % (0-2); Eosinophils Absolute Auto 0.3 X10*3/uL (0.0-0.4); Eosinophils Percent Auto 6.2 % (0-4); Hematocrit 36.2 % (42.0-52.0); Imm Gran Abs Auto 0.03 X10*3/uL (0.00-0.03); Imm Gran Pct Auto 0.6 % (0.0-0.4); Lymphocytes Absolute Auto 1.6 X10*3/uL (1.2-4.9); Lymphocytes Percent Auto 32.5 % (20-40); Mean Corpuscular HGB Conc 30.4 g/dl (31.0-36.0); Mean Corpuscular Hemoglobin 24.8 pg (27.0-33.0); Mean Corpuscular Volume 81.7 fL (80.0-98.0); Mean Platelet Volume 9.6 fL (9.4-12.4); Monocytes Absolute Auto 0.5 X10*3/uL (0.1-1.2); Monocytes Percent Auto 10.8 % (2-11); Neutrophils Absolute Auto 2.4 x10*3/uL (2.0-8.3); Neutrophils Percent Auto 48.7 % (45-73); Platelet Count 263 X10*3/uL (160-400); Red Blood Count 4.43 X10*6/uL (4.60-5.80); Red Cell Distribution Width 15.4 % (11.0-16.0); White Blood Count 4.8 X10*3/uL (4.8-10.8)
[2024-12-06 13:52] LABS: Appearance Urine Clear; Color Urine Yellow; Glucose Urine UA Negative (Negative); Leukocyte Esterase Urine Negative (Negative); Nitrite Urine Negative (Negative); PH 5.5 (5.0-9.0); Specific Gravity - Urine 1.025 (1.005-1.025); Urine Blood Negative (Negative); Urine Ketones Trace mg/dL (Negative); Urine Protein Negative (Neg-Trace)
[2024-12-06 14:05] LABS: Alanine Aminotransferase 30 U/L (0-40); Anion Gap 8 (12-20); Aspartate Amino Transferase 31 U/L (5-37); Bilirubin Total 0.4 mg/dL (0.0-1.0); Blood Urea Nitrogen 15 mg/dL (9-16); Carbon Dioxide 30 mmol/L (22-29); Chloride 105 mmol/L (96-108); Cholesterol 173 mg/dL (<200); Estimated Glomerular Filt Rate > 60; Glucose Fasting 108 mg/dL (60-99); Glucose Random 108 mg/dL (60-115); HDL Cholesterol 46 mg/dL (>40); LDL Cholesterol Calculated 101 mg/dL (<100); Potassium 3.8 mmol/L (3.3-5.1); Sodium 139 mmol/L (135-145); Total Protein 7.7 g/dL (6.5-8.0); Triglycerides 131 mg/dL (<150)
[2024-12-06 14:30] LABS: Ferritin 6 ng/mL (20-250)
[2024-12-06 14:34] LABS: Alkaline Phosphatase 94 U/L (39-117)
== END 2024-12-06 11:35 | disposition home or self-care (01) ==
LOC: HO.HMGCLDS 11:34
PROVIDERS: PCP Internal Medicine; Visit Provider Internal Medicine
DX: Z00.01 Encounter for general adult medical examination with abnormal findings (principal); I12.9 Hypertensive chronic kidney disease with stage 1 through stage 4 chronic kidney disease, or unspecified chronic kidney disease; N18.31 Chronic kidney disease, stage 3a; D63.8 Anemia in other chronic diseases classified elsewhere; F31.9 Bipolar disorder, unspecified; E78.9 Disorder of lipoprotein metabolism, unspecified; K21.9 Gastro-esophageal reflux disease without esophagitis; I42.7 Cardiomyopathy due to drug and external agent; F14.11 Cocaine abuse, in remission
CPT/HCPCS: 36415; 80048; 80053; 80061; 81003; 82728; 84443; 85025; 99396

== ENCOUNTER 2024-12-06 11:34 | Outpatient (AMB) | payer OTHER, SELFPAY ==
[2024-12-06 11:37] VITALS: BP 126/88; PULSE 76; O2SAT 96; BMI 30.7
--- NOTE | 2024-12-06 11:37 | A.OFFPC_ITS ---
Vital Signs 12/06/24 11:37 Height 5 ft 11 in Weight 220 lb 4 oz BMI 30.7 BP 126/88 Blood Pressure Location Rt brachial Position Sitting Pulse 76 Pulse Source Pulse Oximeter Pulse Oximetry (%) 96 Oxygen Delivery Method Room Air Intake Visit Reasons: Annual PE Allergies No Known Allergies [No Known Allergies*] Allergy (Verified 12/06/24 11:37) bees Allergy (Unknown, Uncoded 06/13/24 09:26) swelling and difficulty breathing Medication List - Last Reconciled 12/06/24 by Anand Aguilar MD acetaminophen 500 mg PO Q6H amlodipine 10 mg See Protocol PO BEDTIME aspirin 81 mg PO DAILY atorvastatin 40 mg PO BEDTIME 90 days carvedilol 6.25 mg PO BID docusate sodium (Colace) 200 mg (2 x 100 mg) PO BEDTIME 90 days escitalopram oxalate 20 mg PO DAILY ferrous sulfate 324 mg PO BID 90 days gabapentin 300 mg PO TID lidocaine 5% 1 patch topical DAILY PRN lisinopril 20 mg PO DAILY 90 days omeprazole 40 mg PO BEDTIME quetiapine (Seroquel) 300 mg PO BEDTIME trazodone 100 mg PO BEDTIME Tobacco use date assessed: 12/06/24 Dental Screening Dental Screen Date: 12/06/24 Did you have a dental visit in the last 12 months?: Yes Did you have a dental problem in the last 6 months where you did not have access to dental care?: No Was dental information given to patient?: Patient has dentist HPI Annual PE HPI Details Physical exam appointment - The patient is a 49-year-old male with a history of right shoulder injury secondary to fall 2 months ago, had orthopedic appointment earlier this month missed it History of CVA, history of cocaine abuse which is still going on, last use 1 month ago History of anemia secondary to hemorrhoids iron-deficiency, supposed to be on iron supplement which he was taking until recently he stopped History of cardiomyopathy, seeing Dr. Castillo cardiology [facility] Due for colonoscopy, referral placed History of chronic kidney disease stage 3 Hypertension, lipid disorder, bipolar disorder Seeing a psychiatrist and is taking psychiatric medications through them Chronic GERD , history of hiatal hernia [place] [facility] - Psychiatrist: Dr. Zeus Moya Blood pressure medications and omeprazole through PCP office Last set of lab was in September, patient will have new set of labs today Patient Instructions - Proceed with all necessary blood tests today. - Rebook missed orthopedic appointment. - Continue prescribed medications as dir ected. - Contact for reminder systems to avoid missed appointments. - Maintain a balanced diet and avoid damion oric drinks. - Report any further symptoms or changes in health status promptly. Follow-up six-month Review of Systems - General: No fever no chills - Neurological: No headaches no dizzin ess - Ear nose throat: No sore throat no hearing difficulty no ear pain - Cardiovascular: No syncope, no chest pain, no palpitations - Gastrointestinal: No nausea vomiting or diarrhea - Endocrine: No polyuria polydipsia no heat intolerance - Genitourinary: No dysuria - Skin: No new complaints Physical Exam General: Cooperative, healthy appearing, comfortable, no acute distress Orientation: Patient oriented x3 Head: Normal to inspection Ears: Within normal limit visually Nose: Normal external nose present Face and sinus: Normal facial exam Eyes: Appearance normal, extraocular movement intact pupils reactive Neck: Normal visual inspection and supple Respiratory: Normal respiratory effort and able to speak in complete sentences. Clear to auscultation, no stridor Cardiovascular: S1 and S2 GI: Normal to inspection. Soft to palpation and nontender Skin: Turgor normal, no acute findings Neuro: Patient oriented x3, motor sensory intact, balance intact, tandem pass Extremities: Difficulty with right shoulder movement due to a fall a couple of months ago. Normal to inspection otherwise. [facility] Medical History Hiatal hernia Chronic GERD Hypertension, essential Cocaine abuse CKD (chronic kidney disease) stage 3, GFR 30-59 ml/min Cardiomyopathy Bipolar 1 disorder CHF (congestive heart failure) Family History Father No problems noted. Mother No problems noted. 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 Ricky Cárdenas, Doreen Cardona, Jl Pedro and colleagues, with an educational keith from [employer]. Physical exam (Primary Care) Vital Signs: Last Vital Signs Pulse 76 12/06/24 11:37 BP 126/88 12/06/24 11:37 Pulse Ox 96 12/06/24 11:37 Oxygen Delivery Method Room Air 12/06/24 11:37 BMI result Body Mass Index 30.7 Tobacco/Smoking Status: Tobacco use Status Tobacco use date assessed 12/06/24 12/06/24 11:45 Patient Tobacco Use Status Never used Tobacco 12/06/24 11:45 e-Cigarette/Vaping Use Never Used 12/06/24 11:45 Thrive Assessment: Date of Thrive Assessment Date Thrive assessed 09/22/24 12/06/24 11:45 Coding Level of Care Code Est Pt Level 4 (98799) Est Pt Prev Care 40-64y(20456) Diagnoses Encounter for general adult medical examination with abnormal findings Z00.01 Anemia in other chronic diseases classified elsewhere D63.8 Anemia type: other cause Other causes of anemia: chronic disease, other Hypertension, essential I10 History of cocaine abuse F14.11 Bipolar 1 disorder F31.9 Stage 3a chronic kidney disease N18.31 Chronic kidney disease stage 3 subtype: stage 3a (GFR 45-59) Lipid disorder E78.9 Chronic GERD K21.9 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 Cardiomyopathy type: due to drug Colon cancer screening Z12.11 Assessment & Plan Assessment & Plan (1) Encounter for general adult medical examination with abnormal findings: Code(s): Z00.01 - Encounter for general adult medical examination with abnormal findings Category: Medical (2) Anemia: Code(s): D64.9 - Anemia, unspecified Category: Medical Qualifiers: Anemia type: other cause Other causes of anemia: chronic disease, other Qualified Code(s): D63.8 - Anemia in other chronic diseases classified elsewhe re (3) Hypertension, essential: Code(s): I10 - Essential (primary) hypertension Category: Medical (4) History of cocaine abuse: Code(s): F14.11 - Cocaine abuse, in remission Category: Medical (5) Bipolar 1 disorder: Code(s): F31.9 - Bipolar disorder, unspecified Category: Medical (6) CKD (chronic kidney disease) stage 3, GFR 30-59 ml/min: Code(s): N18.30 - Chronic kidney disease, stage 3 unspecified Category: Medical Qualifiers: Chronic kidney disease stage 3 subtype: stage 3a (GFR 45-59) Qualified Code(s): N18.31 - Chronic kidney disease, stage 3a (7) Lipid disorder: Code(s): E78.9 - Disorder of lipoprotein metabolism, unspecified Category: Medical (8) Chronic GERD: Code(s): K21.9 - Gastro-esophageal reflux disease without esophagitis Category: Medical (9) Cardiomyopathy: Code(s): I42.9 - Cardiomyopathy, unspecified Category: Medical Qualifiers: Cardiomyopathy type: due to drug Qualified Code(s): I42.7 - Cardiomyopathy due to drug and external agent (10) Colon cancer screening: Code(s): Z12.11 - Encounter for screening for malignant neoplasm of colon Category: Medical Plan Physical exam appointment - The patient is a 49-year-old male with a history of right shoulder injury secondary to fall 2 months ago, had orthopedic appointment earlier this month missed it History of CVA, history of cocaine abuse which is still going on, last use 1 month ago History of anemia secondary to hemorrhoids iron-deficiency, supposed to be on iron supplement which he was taking until recently he stopped History of cardiomyopathy, seeing Dr. Castillo cardiology [facility] Due for colonoscopy, referral placed History of chronic kidney disease stage 3 Hypertension, lipid disorder, bipolar disorder Seeing a psychiatrist and is taking psychiatric medications through them Chronic GERD , history of hiatal hernia [place] [facility] - Psychiatrist: Dr. Zeus Moya Blood pressure medications and omeprazole through PCP office Last set of lab was in September, patient will have new set of labs today Patient Instructions - Proceed with all necessary blood tests today. - Rebook missed orthopedic appointment. - Continue prescribed medications as directed. - Contact for reminder systems to avoid missed appointments. - Maintain a balanced diet and avoid caloric drinks. - Report any further symptoms or changes in health status promptly. Follow-up six-month Orders: Orders Comprehensive [place]. Panel Fast Today D63.8 - Anemia in other chronic diseases classified elsewhere, E78.9 - Disorder of lipoprotein metabolism, unspecified, F14.11 - Cocaine abuse, in remission, F31.9 - Bipolar disorder, unspecified, I10 - Essential (primary) hypertension, I42.7 - Cardiomyopathy due to drug and exte rnal agent, K21.9 - Gastro-esophageal reflux disease without esophagitis, N18.31 - Chronic kidney disease, stage 3a Ferritin Today D63.8 - Anemia in other chronic diseases classified elsewhere, E78.9 - Disorder of lipoprotein metabolism, unspecified, F14.11 - Cocaine abuse, in remission, F31.9 - Bipolar disorder, unspecified, I10 - Essential (primary) hypertension, I42.7 - Cardiomyopathy due to drug and external agent, K21.9 - Gastro-esophageal reflux disease without esophagitis, N18.31 - Chronic kidney disease, stage 3a Complete Blood Count Auto Diff Today D63.8 - Anemia in other chronic diseases classified elsewhere, E78.9 - Disorder of lipoprotein metabolism, unspecified, F14.11 - Cocaine abuse, in remission, F31.9 - Bipolar disorder, unspecified, I10 - Essential (primary) hypertension, I42.7 - Cardiomyopathy due to drug and external agent, K21.9 - Gastro-esophageal reflux disease without esophagitis, N18.31 - Chronic kidney disease, stage 3a Lipid Panel Today D63.8 - Anemia in other chronic diseases classified elsewhere, E78.9 - Disorder of lipoprotein metabolism, unspecified, F14.11 - Cocaine abuse, in remission, F31.9 - Bipolar disorder, unspecified, I10 - Essential (primary) hypertension, I42.7 - Cardiomyopathy due to drug and external agent, K21.9 - Gastro-esophageal reflux disease without esophagitis, N18.31 - Chronic kidney disease, stage 3a TSH reflex Free T4 Today D63.8 - Anemia in other chronic diseases classified elsewhere, E78.9 - Disorder of lipoprotein metabolism, unspecified, F14.11 - Cocaine abuse, in remission, F31.9 - Bipolar disorder, unspecified, I10 - Essential (primary) hypertension, I42.7 - Cardiomyopathy due to drug and external agent, K21.9 - Gastro-esophageal reflux disease without esophagitis, N18.31 - Chronic kidney disease, stage 3a UA CC w/rflx Micro + Cult Today D63.8 - Anemia in other chronic diseases classified elsewhere, E78.9 - Disorder of lipoprotein metabolism, unspecified, F14.11 - Cocaine abuse, in remission, F31.9 - Bipolar disorder, unspecified, I10 - Essential (primary) hypertension, I42.7 - Cardiomyopathy due to drug and external agent, K21.9 - Gastro-esophageal reflux disease without esophagitis, N18.31 - Chronic kidney disease, stage 3a Referrals Gastroenterology Referral Z12.11 - Encounter for screening for malignant neoplasm of colon Medications: Refilled atorvastatin 40 mg PO BEDTIME 90 days 90 tabs 0RF omeprazole 40 mg PO BEDTIME 90 caps 0RF ferrous sulfate 324 mg PO BID 90 days 180 tabs 0RF carvedilol 6.25 mg PO BID 180 tabs 0RF aspirin 81 mg PO DAILY 90 tabs 0RF lisinopril 20 mg PO DAILY 90 days 90 tabs 0RF
--- OUTSIDE RECORDS SUMMARY | 2024-12-06 14:15 | XMS_ITS | Clinical Summary ---
Author Organization [facility] Address [address] [place] [address] Phone Care Team Providers Care Portfolio Strategist Name Role Phone Anand Aguilar MD Primary Care Provider Allergies Active Allergy Reactions Criticality Noted Date Comments Beeswax 06/22/2024 bees Medications lisinopril 20 MG tablet Take 1 tablet by mouth once daily 30 tablet 1 Active aspirin (ST NANDA) 81 MG EC tablet Take 1 tablet by mouth 1 (one) time each day Active carvedilol (COREG) 6.25 MG tablet Take 6.25 mg by mouth 2 (two) times a day 1 Active gabapentin (NEURONTIN) 300 MG capsule Take 300 mg by mouth in the morning and 300 mg at noon and 300 mg in the evening. 1 Active lidocaine (LIDODERM) 5 % patch USE 1 PATCH TOPICALLY DAILY FOR 30 DAYS LEAVE PATCH ON MOST PAINFUL AREA FOR UP TO 12 HOURS 1 Active omeprazole (PriLOSEC) [address] capsule Take 40 mg by mouth 1 (one) time each day 1 Active QUEtiapine (SEROquel) 300 MG tablet Take 300 mg by mouth every night 1 Active traZODone (DESYREL) 100 MG tablet TAKE 1 TABLET BY MOUTH ONCE DAILY . 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 Avoid Nephrotoxins On ACEi Assessment & Plan (06/22/2024 10:53 AM EDT): Stable Creatinine 1.2, eGFR 60 as of 03/22/24 Rechecking Renal panel and associated labs today Monitor for proteinuria Keep BP under good control Assessment & Plan (04/05/2024 10:55 AM EDT): Creat stable at 1.2, eGFR 60 as of 03/22/2024 Normal Lytes Borderline low Ca 8.7 Will check PTH to assess for secondary hyperparathyroidism Check Vitamin D 25 level Anemia in chronic kidney disease 04/05/2024 Overview (04/05/2024): Target Hgb 10-12 Assessment & Plan (06/22/2024 10:52 AM EDT): Hgb 10.9 as of 03/22/24 Rechecking CBC Checking iron studies, no hx iron def or iron supp Assessment & Plan (04/05/2024 10:56 AM EDT): Hgb 10.9 as of 03/22/2024 Check iron studies, no h/o iron def or iron supp Likely related to CKD Will monitor need for Epo replacement down the road when Hgb falls <10 w/ normal iron levels Acute nontraumatic kidney injury 06/17/2021 Acute nontraumatic kidney injury 06/17/2021 Chronic kidney disease stage 3 06/17/2021 Hypertension 06/17/2021 Overview (04/05/2024): Follow low NA diet Avoid NSAIDs/Decongestant medications Target BP <120/80 Assessment & Plan (06/22/2024 10:50 AM EDT): Blood pressure is well controlled Taking Amlodipine 10 mg QD, Lisinopril 20 mg QD and Carvedilol 6.25 mg BID No Edema Monitor home BP, call if any concerns Assessment & Plan (04/05/2024 10:49 AM EDT): Blood pressure is good here today, 110/80, HR 80 Taking Amlodipine 10 mg QD, Lisinopril 20 mg QD and Carvedilol 6.25 mg QD No Edema Recommend taking the current Carvedilol dose 6.25 mg twice a day as indicated No further changes, stay off Chlorthalidone for now - not needed Monitor home BP once daily, record and bring in to next visit - proper technique as discussed Hypertensive heart and renal disease with (congestive) heart failure 06/17/2021 Nonischemic congestive cardiomyopathy 06/17/2021 Encounters Date Type Department Care Team Description 11/18/2024 Orders Only [facility] [address] [facility] [address] [place] [address] Kiki North ARNP Chronic kidney disease, stage 2 (mild); Hypertension; Anemia in chronic kidney disease from Last 3 Months Family History Medical History Relation Comments Diabetes Father Hypertension Father Kidney disease Father Diabetes Mother Heart disease Mother Hypertension Mother Relation Status Comments Father Mother Alive Social History Tobacco Use Types Packs/Day Years Used Date Smoking Tobacco: Never Smokeless Tobacco: Never Alcohol Use Standard Drinks/Week Comments Yes 0 (1 standard drink = 0.6 oz pur e alcohol) Sex and Gender Information Value Date Recorded Sex Assigned at Not on file Legal Sex Male 4:51 PM EST Gender Identity Not on file Sexual Orientation Not on file Last Filed Vital Signs Vital Sign Reading Time Taken Comments Blood Pressure 112/64 06/22/2024 10:03 AM EDT Pulse 85 06/22/2024 10:03 AM EDT Temperature - - Respiratory Rate - - Oxygen Saturation 98% 06/17/2021 3:59 PM EDT Inhaled Oxygen Concentration - - Weight 93.4 kg (206 lb) 06/22/2024 10:03 AM EDT Height 180.3 cm (5' 11 ) 06/17/2021 3:59 PM EDT Body Mass Index 28.73 06/17/2021 3:59 PM EDT Plan of Treatment Upcoming Encounters Date Type Department Care Team (Late st Contact Info) Description 12/21/2024 11:30 AM EDT Office Visit [facility] P.CMiranda [address] [address] Can KikiLEONOR [address] [address] Health Maintenance Due Date Last Done Comments Hepatitis B Vaccine (1 of 3 - 19+ 3-dose series) 06/10 Pneumococcal Vaccine: Pediat rics (0 to 5 Years) and At-Risk Patients (6 to 64 Years) (2 of 2 - PCV) 07/15/2017 07/15/2016 Colorectal Cancer Screening: Annual FOBT 2023 Colorectal Cancer Screening: Colonoscopy 2023 Colorectal Cancer Screening: Sigmoidoscopy 2023 Influenza Vaccine (#1) 2024 Insurance MEDICAID MEDICAID Care Teams Portfolio Strategist Relationship Specialty Start Date End Date Anand Aguialr MD [address] [place] [address] PCP - General 09/30/20
--- OUTSIDE RECORDS SUMMARY | 2024-12-06 14:15 | XMS_ITS | Encounter Summary ---
Author Organization [facility] Address [address] [address] Phone Care Team Providers Care Sharples Machine Operator Name Role Phone Anand Aguilar MD Primary Care Provider [phone] Encounter Details Date Type Department Care Team (Late Contact Info) Description 11/18/2024 Orders Only [facility] [address] [place] [address] Kiki North ARNP [address] [address] Chronic kidney disease, stage 2 (mild); Hypertension; Anemia in chronic kidney disease Social History Tobacco Use Types Packs/Day Years Used Date Smoking Tobacco: Never Smokeless Tobacco: Never Alcohol Use Standard Drinks/Week Comments Yes 0 (1 standard drink = 0.6 oz pur e alcohol) Sex and Gender Information Value Date Recorded Sex Assigned at Not on file Legal Sex Male 4:51 PM EST Gender Identity Not on file Sexual Orientation Not on file documented as of this encounter Plan of Treatment Upcoming Encounters Date Type Department Care Team (Late Contact Info) Description 12/21/2024 11:30 AM EDT Office Visit [facility] [address] [address] Kiki North ARNP [address] [address] documented as of this encounter Visit Diagnoses Diagnosis Chronic kidney disease, stage 2 (mild) Hypertension Anemia in chronic kidney disease documented in this encounter Care Teams Sharples Machine Operator Relationship Specialty Start Date End Date Anand Aguilar MD [address] [place] [address] PCP - General 09/30/20 documented as of this encounter
--- OUTSIDE RECORDS SUMMARY | 2024-12-06 14:15 | XMS_ITS | Clinical Summary ---
Author Organization [employer] Address [address] [facility] [address] [place] [address] Care Team Providers Care Loader Technician Name Role Phone Unavailable Primary Care Provider Unavailabl e Allergies No known active allergies Medications traZODone (Desyrel) 100 MG tablet Take 100 mg by mouth at bedtime. Active Social History Tobacco Use Types Packs/Day Years Used Date Smoking Tobacco: Never Assessed Sex and Gender Information Value Date Recorded Sex Assigned at Male 07/20/2022 10:33 AM EDT Legal Sex Male 10:33 AM EDT Gender Identity Male 07/20/2022 10:33 AM EDT Sexual Orientation Straight 07/20/2022 10 :33 AM EDT Plan of Treatment Health Maintenance Due Date Last Done Comments CT Colonography 1974 Colonoscopy 1974 Colorectal Cancer Screening 1974 Dental Oral Exam 1974 Dental Prophylaxis 1974 Dental X-Ray: Full Mouth 1974 Depression Screening 1974 FIT DNA/Cologuard 1974 FIT 1974 FOBT 1974 HIV Screening 1974 Lipid Panel 1974 SDOH Screening 1974 Sigmoidoscopy 1974 Alcohol/Substance Use Screening 1986 Tobacco Screening 1986 Family Planning (PISQ) 1989 Hepatitis C Screening 1992 Hepatitis B Vaccines (1 of 3 - 19+ 3-dose series) 1993 Dental X-Ray: Bitewings 12/09/2018 12/08/2017 COVID-19 Vaccine (3 - 2023- season) 2024 03/26/2021, 02/26/2021 Influenza Vaccine (#1) 2024 , 08/17/2018, 03/20/2017, Additional history exists Pneumococcal Vaccine: 50+ Years (2 of 2 - PCV) 2024 07/15/2016 Zoster Vaccines (1 of 2) 2024 DTaP/Tdap/Td Vaccines (2 - Td or Tdap) 04/20/2031 04/20/2021 RSV Patients and Patients Aged 60 years or older (1 - 1-dose 75+ series) 2049 HIB Vaccines Aged Out No longer eligi ble based on patient's age to complete this topic HPV Vaccines Aged Out No longer eligi ble based on patient's age to complete this topic Hepatitis A Vaccines Aged Out No long er eligible based on patient's age to complete this topic IPV Vaccines Aged Out No longer eligi ble based on patient's age to complete this topic Meningococcal Vaccine Aged Out No yefri abhi eligible based on patient's age to complete this topic RSV under 20 months Aged Out No longe r eligible based on patient's age to complete this topic Rotavirus Vaccines Aged Out No longer eligible based on patient's age to complete this topic Procedures Procedure Name Priority Date/Time Associated Diagnosis Comments BITEWINGS - 2 RADIOGRAPHIC IMAGES Routine 12/08/2017 12:00 AM EDT from Last 3 Months or Most Recently Relevant to Health Maintenance [facility] ST[facility]
== END 2024-12-06 12:01 | disposition home or self-care (01) ==
LOC: HO.HMCC 11:35
PROVIDERS: PCP Internal Medicine; Visit Provider Internal Medicine
DX: Z00.00 Encounter for general adult medical examination without abnormal findings (principal); F14.11 Cocaine abuse, in remission; F31.9 Bipolar disorder, unspecified; N18.31 Chronic kidney disease, stage 3a; I42.7 Cardiomyopathy due to drug and external agent; I12.9 Hypertensive chronic kidney disease with stage 1 through stage 4 chronic kidney disease, or unspecified chronic kidney disease; D63.8 Anemia in other chronic diseases classified elsewhere; E78.9 Disorder of lipoprotein metabolism, unspecified; K21.9 Gastro-esophageal reflux disease without esophagitis; Z12.11 Encounter for screening for malignant neoplasm of colon

== ENCOUNTER 2024-12-25 08:51 | Outpatient (REF) | payer OTHER, SELFPAY ==
--- OUTSIDE RECORDS SUMMARY | 2024-12-25 11:57 | XMS_ITS | Clinical Summary ---
Author Organization [facility] Address [address] [facility] [address] [place] [address] Phone Care Team Providers Care Nurse Ldr Name Role Phone Anand Aguilar MD Primary Care Provider [phone] Allergies Active Allergy Reactions Criticality Noted Date [...] Orders Only [facility] [address] [facility] [address] [place] [address] Kiki North ARNP Chronic kidney [...] 2023 Influenza Vaccine (Season Ended) [address] [place] [place] [address] MEDICAID Care Teams Nurse Ldr Relationship Specialty Start Date End Date Anand Aguilar MD [facility] [place] [address] PCP - General 09/30/20
--- OUTSIDE RECORDS SUMMARY | 2024-12-25 11:57 | XMS_ITS | Clinical Summary ---
Author Organization [employer] Address [address] [facility] [address]t [place] [address] Care Team Providers Care Penology Teacher Name Role Phone Unavailable Primary Care Provider [...] Most Recently Relevant to Health Maintenance Insurance [facility] STAND ADULT
[2024-12-25 14:34] LABS: Influenza A PCR NEGATIVE (Negative); Influenza B PCR NEGATIVE (Negative); Resp Syncy Virus RNA Qual PCR NEGATIVE (Negative); SARS COV2 PCR INHOUSE NEGATIVE (Negative)
== END 2024-12-25 08:52 | disposition home or self-care (01) ==
LOC: HO.LAB 08:51
PROVIDERS: Physician Assistant; PCP Internal Medicine
DX: J22 Unspecified acute lower respiratory infection (principal); R09.89 Other specified symptoms and signs involving the circulatory and respiratory systems
CPT/HCPCS: 0241U; 99212

== ENCOUNTER 2024-12-25 08:51 | Outpatient (AMB) | payer OTHER, SELFPAY ==
--- OUTSIDE RECORDS SUMMARY | 2024-12-25 09:39 | XMS_ITS | Clinical Summary ---
Author Organization [employer] Address [address] [facility] 7[address] [place] [address] Care Team Providers Care [employer] Flatbed Truck Driver Name Role Phone Unavailable Primary Care Provider [...] Most Recently Relevant to Health Maintenance [facility] ST[facility]
--- OUTSIDE RECORDS SUMMARY | 2024-12-25 09:39 | XMS_ITS | Clinical Summary ---
Author Organization [facility] Address [address] [place] [address] Phone Care Team Providers Care Computer Repair Engineer Name Role Phone Anand Aguilar MD Primary Care Provider [phone] Allergies Active Allergy Reactions Criticality Noted Date [...] Orders Only [facility] [address] [place] [address] Kiki North ARNP Chronic kidney [...] 06/17/2021 3:59 PM EDT Plan of Treatment Health Maintenance Due Date Last Done Comments Hepatitis B Vaccine (1 of 3 - 19+ 3-dose series) 06/10 Pneumococcal Vaccine: Pediat rics (0 to 5 Years) and At-Risk Patients (6 to 64 Years) (2 of 2 - PCV) 07/15/2017 07/15/2016 Colorectal Cancer Screening: Annual FOBT 2023 Colorectal Cancer Screening: Colonoscopy 2023 Colorectal Cancer Screening: Sigmoidoscopy 2023 Influenza Vaccine (Season Ended) [address] [place] [address] MEDICAID Care Teams Computer Repair Engineer Relationship Specialty Start Date End Date Anand Aguilar MD [facility] [place] [address] PCP - General 09/30/20
--- NOTE | 2024-12-25 10:00 | AM.OFFWIN_ITS ---
Intake Vital Signs 12/25/24 10:01 Weight 225 lb BP 126/82 Blood Pressure Location Lt brachial Position Sitting Pulse 80 Pulse Source Pulse Oximeter Temp 97.6 F Temp Source Oral Pulse Oximetry (%) 97 Oxygen Delivery Method Room Air Intake Visit Reasons: EP Severe cough, pain in stomach, change in stool Intake Note: Patient here for severe cough, difficulty breathing, change in stools, headaches and dizziness that has been present since Wednesday. Patient Tobacco Use Status: Never used Tobacco Allergies No Known Allergies [No Known Allergies*] Allergy (Verified 12/25/24 10:03) bees Allergy (Unknown, Uncoded 12/25/24 10:03) swelling and difficulty breathing Do you need a note to return to daycare/school/sports/work: No HPI HPI Comments History of Present Illness Details History - The patient is a 49-year-old male pres enting with a cough with shortness of breath and wheezing. - Symptoms started approximately five da ys ago evolving into a severe cough and associated dizziness. - The cough exacerbated and led to sever e pain in the abdominal area, potentially due to muscular strain or rib injury. - The patient experiences shortness of b reath and wheezing, denies fever, and has a medical history of heart failure and chronic kidney disease. Denies COPD or asthma or other pulmonary diagnosis, does not smoke or vape but does smoke pot once in a while. - No improvement in symptoms with the us e of bdmu-[id number] medications (Mucinex DM) or home inhalers. Physical Exam General: Cooperative, healthy appearing, comfortable and no acute distress Orientation/consciousness: Patient oriented x3 Limitations: No limitations Head: Normal to inspection Ears: Hearing grossly normal bilaterally, external ears normal and TM's normal bilaterally Nose: Normal external nose present, Normal nares present and No nasal discharge present Face and sinus: Normal facial exam and Sinuses tender Mouth: Normal oral and palatal mucosa present and moist mucous membranes Throat: Yes tonsils normal, Yes uvula midline. Posterior oropharynx erythema Eyes: Appearance normal, both eyes and all related structures Neck: Normal visual inspection Respiratory: slight exp wheeze. Normal respiratory effort, able to speak in complete sentences, Actively coughing, no respiratory distress, not tachypneic, no tripod positioning and no use of accessory muscles. Cardiovascular: Regular rate and rhythm. Normal S1 and S2 Skin: No rashes or lesions noted Neuro: Patient oriented x3 Extremities: Normal to inspection and Yes no clubbing, cyanosis or edema PFSH Medical History Hiatal hernia Chronic GERD Hypertension, essential Cocaine abuse CKD (chronic kidney disease) stage 3, GFR 30-59 ml/min Cardiomyopathy Bipolar 1 disorder CHF (congestive heart failure) Family History Father No problems noted. Mother No problems noted. 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 I initiated treatment with prednisone 40 mg daily as a steroid burst for five days to manage his feeling short of breath and wheezing. Benzonatate was prescribed to suppress the cough, enhancing sleep quality. Despite previous inhaler use, effectiveness was limited; the patient is advised to continue usage alongside the steroid for potential improvements. Decongestants and antihistamines were suggested for symptom relief. Nasal swabs were obtained for influenza, COVID-19, and RSV testing, with results pending. Tamiflu and Paxlovid were avoided due to elapsed time and kidney condition side effects. The patient was instructed to begin pharmacotherapy immediately. Patient was informed and verbally consented to the use of an ambient scribe for clinic note documentation during this visit Orders: Orders SARS-CoV2/FLU/RSV Today R09.89 - Other specified symptoms and signs involving the circulatory and respiratory systems Medications: New prednisone 40 mg (2 x 20 mg) PO QAM 10 tabs 0RF benzonatate 200 mg PO BEDTIME PRN 10 caps 0RF cough Coding Level of Care Code Est Pt Level 3 (12280) Diagnoses Lower respiratory infection (e.g., bronchitis, pneumonia, pneumonitis, pu lmonitis) J22
[2024-12-25 10:01] VITALS: BP 126/82; PULSE 80; TEMP 36.4; O2SAT 97
== END 2024-12-25 10:29 | disposition home or self-care (01) ==
PROVIDERS: PCP Internal Medicine; Visit Provider Physician Assistant
DX: J22 Unspecified acute lower respiratory infection (principal)

== ENCOUNTER 2025-01-04 15:51 | Outpatient (AMB) | payer OTHER, SELFPAY ==
--- NOTE | 2025-01-04 15:55 | AM.OFFWIN_ITS ---
Intake Intake Visit Reasons: EP-pain b/l arms and face nose from a fall Patient Tobacco Use Status: Never used Tobacco Allergies No Known Allergies [No Known Allergies*] Allergy (Verified 12/25/24 10:03) bees Allergy (Unknown, Uncoded 12/25/24 10:03) swelling and difficulty breathing HPI HPI Comments 2 History of Present Illness0 Details 49 y/o Male patient who presents to the walk in clinic with c/o Facial laceration and Headaches after a Fall at home. Pt has ~ 1 inc length Superficial Lac on the Nose bridge, Lower Lip (inside) 1 cm Lac and few scratches on B/L Eyebrows. He does endorse Hitting head on the Ground but LOC. Pt c/o Neck and back pain and light dizziness. [facility] Medical History (Updated 01/04/25 @ 16:22 by Nery Adams NP) Facial laceration Hiatal hernia Chronic GERD Hypertension, essential Cocaine abuse CKD (chronic kidney disease) stage 3, GFR 30-59 ml/min Cardiomyopathy Bipolar 1 disorder CHF (congestive heart failure) Family History Father No problems noted. Mother No problems noted. 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 Skin Abrasions, Erythematous Nose slightly deviated Face images: 2 1. 1 inch length Superficial Lac on the Nose bridge, Lower Lip (inside) 1 cm Lac and few scratches on B/L Eyebrows 2. 1 inch length Superficial Lac on the Nose bridge, Lower Lip (inside) 1 cm Lac and few scratches on B/L Eyebrows 3. 1 inch length Superficial Lac on the Nose bridge, Lower Lip (inside) 1 cm Lac and few scratches on B/L Eyebrows Mouth: moist mucous membranes Mouth/tongue images: 2 1. Small Superficial Laceration, bleeding stopped. Poor Teeth Teeth and gingiva: poor dentition Throat: Yes uvula midline Eyes Pupils: Equal, round and reactive pupils present EOM: EOMs intact bilaterally Resp Effort & Inspection: normal respiratory effort Cardio Heart sounds: S1 normal heart sound present and S2 normal heart sound present Neuro General: patient oriented x3, gait normal, moves all extremities and No confusion Cranial nerves: Yes Equal, round and reactive pupils present Gait exam (Neuro): Wide-based gait present Motor exam (neuro): 5/5 motor strength present throughout Assessment & Plan Assessment & Plan (1) Facial laceration: Code(s): S01.81XA - Laceration without foreign body of other part of head, initial encounter Qualifiers: Encounter type: initial encounter Qualified Code(s): S01.81XA - Laceration without foreign body of other part of head, initial encounter Plan: Lacerations cleaned and dressed with Dermabond and steri-strips. Mouth Lac superficial no need for stitches. Acetaminophen for pain relief. Educated on S&S of Brain bleed such as; Light/sound sensitivity, Blurry vision, Severe headaches, Nausea, Vomiting etc Advised to go to ED if symptoms present. Coding Level of Care Code Est Pt Level 4 (52608) Diagnoses Facial laceration, initial encounter S01.81XA Encounter type: initial encounter Time Spent (min) 20
--- OUTSIDE RECORDS SUMMARY | 2025-01-04 18:12 | XMS_ITS | Clinical Summary ---
Author Organization [facility] Address [address] [facility] [address] [place] [address] Phone Care Team Providers Care Outdoor Fitness Trainer Name Role Phone Anand Aguilar MD Primary Care Provider [phone] Allergies Active Allergy Reactions Criticality Noted Date [...] Only [facility] [address] [facility] [address] [place] [address] Kiki North ARNP Chronic kidney [...] Care Team (Late st Contact Info) Description 01/17/2025 3:15 PM EDT Office Visit [facility] [address] [address] Can KikiLEONOR [address] [address] Health Maintenance Due Date Last Done Comments Hepatitis B Vaccine (1 of 3 - 19+ 3-dose series) 06/10 Pneumococcal Vaccine: 50+ Years (2 of 2 - PCV) 017 07/15/2016 Colorectal Cancer Screening: Annual FOBT 2023 Colorectal Cancer Screening: Colonoscopy 2023 Colorectal Cancer Screening: Sigmoidoscopy 2023 Influenza Vaccine (Season Ended) 2025 Pneumococcal Vaccine: Peds ( 0 to 5 Years) and At-Risk Patients (6 to 49 Years) Discontinued 07/15/2016 Insurance [facility] Medicaid Care Teams Outdoor Fitness Trainer Relationship Specialty Start Date End Date Anand Aguilar MD [address] [place] [address] PCP - General 09/30/20
--- OUTSIDE RECORDS SUMMARY | 2025-01-04 18:12 | XMS_ITS | Clinical Summary ---
Author Organization [employer] Address [address] [facility] 7t [place] [address] Care Team Providers Care Hydraulic Press Servicer Name Role Phone Unavailable Primary Care Provider [...] Most Recently Relevant to Health Maintenance [facility] ST[facility]
== END 2025-01-04 16:44 | disposition home or self-care (01) ==
PROVIDERS: PCP Internal Medicine; Visit Provider Nurse Practitioner Family
DX: S01.81XA Laceration without foreign body of other part of head, initial encounter (principal)

== ENCOUNTER → 2025-01-04 15:51 | Outpatient (BNVA) | payer OTHER, SELFPAY | PROVIDERS: PCP Internal Medicine | DX: S01.81XA Laceration without foreign body of other part of head, initial encounter (principal); W19.XXXA Unspecified fall, initial encounter; Y93.9 Activity, unspecified; Y92.9 Unspecified place or not applicable; Y99.9 Unspecified external cause status | CPT/HCPCS: 12001; 99212 ==

== ENCOUNTER 2025-01-24 09:15 | Outpatient (REF) | payer OTHER, SELFPAY ==
--- NOTE | ~2025-01-24 | XR_ITS ---
EXAMINATION: XR CHEST CLINICAL INFORMATION: J22 - Unspecified acute lower respiratory infection COMPARISON: April 20, 2021. TECHNIQUE: 2 views of the chest were obtained. FINDINGS: No consolidation, pleural effusion or pneumothorax. Cardiomediastinal silhouette size is normal. Osseous structures are intact. Old healed rib fracture with callus formation posterior lateral aspect of the left fifth rib. XR/XR chest 2V IMPRESSION: No acute airspace disease. Stable chest. Electronically signed by: Michael Cade MD 01/24/2025 09:46 AM EDT
--- OUTSIDE RECORDS SUMMARY | 2025-01-24 10:15 | XMS_ITS | Clinical Summary ---
Author Organization [employer] Address [address] [facility] [address] [place] [address] Care Team Providers Care Fleet Dispatch Manager Name Role Phone Unavailable Primary Care Provider [...] Most Recently Relevant to Health Maintenance Insurance [facility] MEDICAID STAND ADULT
--- OUTSIDE RECORDS SUMMARY | 2025-01-24 10:15 | XMS_ITS | Clinical Summary ---
Author Organization [facility] Address [address] [facility] [address] [place] [address] Phone Care Team Providers Care Image Processing Engineer Name Role Phone Anand Aguilar MD Primary Care Provider [phone] Allergies Active Allergy Reactions Criticality Noted Date [...] Only [facility] [address] [facility] [address] [place] [address] Kiki North ARNP Chronic kidney [...] Visit [facility] [address] [address] Can [place] [address] [address] Health Maintenance Due Date Last [...] (6 to 49 Years) Discontinued 07/15/2016 Insurance [facility] Medicaid Care Teams Image Processing Engineer Relationship Specialty Start Date End Date Anand Aguliar MD [address] [place] [address] PCP - General 09/30/20
== END 2025-01-24 09:16 | disposition home or self-care (01) ==
LOC: HO.HMGCX 09:15
PROVIDERS: PCP Internal Medicine; Visit Provider Internal Medicine
DX: J22 Unspecified acute lower respiratory infection (principal); F14.90 Cocaine use, unspecified, uncomplicated
CPT/HCPCS: 71046; 87880; 99212

== ENCOUNTER 2025-01-24 09:15 | Outpatient (AMB) | payer OTHER, SELFPAY ==
--- NOTE | 2025-01-24 09:19 | A.OFFPC_ITS ---
Vital Signs 01/24/25 09:20 Weight 226 lb BP 130/90 H Blood Pressure Location Rt brachial Position Sitting Pulse 68 Pulse Source Pulse Oximeter Temp 97.6 F Pulse Oximetry (%) 97 Oxygen Delivery Method Room Air Intake Visit Reasons: cough/Phlegm/sore throat Allergies No Known Allergies [No Known Allergies*] Allergy (Verified 12/25/24 10:03) bees Allergy (Unknown, Uncoded 12/25/24 10:03) swelling and difficulty breathing Medication List - Last Reconciled 01/24/25 by Anand Aguilar MD acetaminophen 500 mg PO Q6H amlodipine 10 mg See Protocol PO BEDTIME aspirin 81 mg PO DAILY atorvastatin 40 mg PO BEDTIME 90 days azithromycin 250 mg PO ONCE 5 days carvedilol 6.25 mg PO BID docusate sodium (Colace) 200 mg (2 x 100 mg) PO BEDTIME 90 days escitalopram oxalate 20 mg PO DAILY ferrous sulfate 324 mg PO BID 90 days gabapentin 300 mg PO TID lidocaine 5% 1 patch topical DAILY PRN lisinopril 20 mg PO DAILY 90 days omeprazole 40 mg PO BEDTIME prednisone 20 mg PO DAILY 5 days trazodone 100 mg PO BEDTIME zolpidem 5 mg PO BEDTIME PRN Tobacco use date assessed: 12/06/24 Dental Screening Dental Screen Date: 12/06/24 HPI cough/Phlegm/sore throat HPI Details History - The patient is a 49-year-old male pres enting with worsening respiratory symptoms. - The respiratory symptoms have been pre sent for approximately two months. Off and on Initially treated with medication and felt better but then symptoms started again 10 days ago - The patient reports being seen in a in where he was prescribed corticosteroids but did not receive antibiotics at that time. - The condition initially seemed to impr ove slightly but worsened again shortly thereafter. - There is a reported history of cocaine use, which is believed to have impacted his respiratory condition adversely. - The patient reports persistent symptom s such as exhaustion, cough and congestion Problem List - Chronic Lung Condition - Recurrent Respiratory Illness - Cocaine Use Patient Instructions - Stop using cocaine to help improve [facility]. - Proceed with obtaining the ordered damian st x-ray. - contact and service clerks supervisor prescribed medications from e pharmacy once they are ready. - Report any worsening of symptoms or ne w concerns. Review of Systems - General: + chills off and on - Neurological: No headaches no dizziness - Ear nose throat: No sore throat no hearing difficulty no ear pain - Cardiovascular: No syncope, no palpitations - Gastrointestinal: No nausea vomiting or diarrhea - Endocrine: No polyuria polydipsia no heat intolerance - Genitourinary: No dysuria , no blood in urine Physical Exam General: No acute distress HEENT: No acute findings Neck: Supple Respiratory system: No wheezing or rhonchi heard Cardiovascular: S1-S2 regular in rate and rhythm Gastrointestinal: No pain Extremities: No new findings AGRONOMY INSTRUCTOR: Alert awake oriented x3 motor sensory intact Skin: Normal [facility] Medical History Facial laceration Hiatal hernia Chronic GERD Hypertension, essential Cocaine abuse CKD (chronic kidney disease) stage 3, GFR 30-59 ml/min Cardiomyopathy Bipolar 1 disorder CHF (congestive heart failure) Family History Father No problems noted. Mother No problems noted. 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 Ricky Cárdenas, Doreen Cardona, Jl Pedro and colleagues, with an educational keith from [employer]. Physical exam (Primary Care) Vital Signs: Last Vital Signs Temp 97.6 F 01/24/25 09:20 Pulse 68 01/24/25 09:20 BP 130/90 H 01/24/25 09:20 Pulse Ox 97 01/24/25 09:20 Oxygen Delivery Method Room Air 01/24/25 09:20 Tobacco/Smoking Status: Tobacco use Status Tobacco use date assessed 12/06/24 01/24/25 09:32 Patient Tobacco Use Status Never used Tobacco 01/24/25 09:32 e-Cigarette/Vaping Use Never Used 01/24/25 09:32 Thrive Assessment: Date of Thrive Assessment Date Thrive assessed 09/22/24 01/24/25 09:32 Results AMB Rapid Strep AMB Rapid Strep Negative Last Edit by Mohamud Dowling CMA on 01/24/25 09:3 3 Results Reviewed Results Reviewed: Laboratory Last Values Strep Scn Rapid Clinic Negative 01/24/25 09:32 Coding Level of Care Code Est Pt Level 3 (76433) Diagnoses Lower respiratory infection (e.g., bronchitis, pneumonia, pneumonitis, pulmonitis) J22 Assessment & Plan Assessment & Plan (1) Lower respiratory infection (e.g., bronchitis, pneumonia, pneumonitis, pulmonitis): Code(s): J22 - Unspecified acute lower respiratory infection Category: Medical Plan History - The patient is a 49-year-old male presenting with worsening respiratory symptoms. - The respiratory symptoms have been present for approximately two months. Off and on Initially treated with medication and felt better but then symptoms started again 10 days ago - The patient reports being seen in a clinic where he was prescribed corticosteroids but did not receive antibiotics at that time. - The condition initially seemed to improve slightly but worsened again shortly thereafter. - There is a reported history of cocaine use, which is believed to have impacted his respiratory condition adversely. - The patient reports persistent symptoms such as exhaustion, cough and co ngestion Problem List - Chronic Lung Condition - Recurrent Respiratory Illness - Cocaine Use Patient Instructions - Stop using cocaine to help improve lung health. - Proceed with obtaining the ordered chest x-ray. - contact and service clerks supervisor prescribed medications from the pharmacy once they are ready. - Report any worsening of symptoms or new concerns. Orders: Orders XR chest 2V Today J22 - Unspecified acute lower respiratory infection AMB Rapid Strep Screen Today Z13.9 - Encounter for screening, unspecified SARS-CoV2/FLU/RSV Today R09.89 - Other specified symptoms and signs involving the circulatory and respiratory systems Medications: New azithromycin Take 2 tablets today then 1 daily 250 mg PO ONCE 5 days 6 tabs 0RF J06.9 - Acute upper respiratory infection, unspecified prednisone 20 mg PO DAILY 5 days 5 tabs 0RF
[2025-01-24 09:20] VITALS: BP 130/90; PULSE 68; TEMP 36.4; O2SAT 97
--- OUTSIDE RECORDS SUMMARY | 2025-01-24 09:49 | XMS_ITS | Clinical Summary ---
Author Organization [employer] Address [address] [facility] [address] [place] [address] Care Team Providers Care Fountain Dispenser Name Role Phone Unavailable Primary Care Provider [...] Dental X-Ray: Bitewings 12/09/2018 12/08/2017 COVID-19 Vaccine ( season) 2024 03/26/2021, 02/26/2021 Influenza Vaccine (#1) [...] Most Recently Relevant to Health Maintenance Insurance [facility] STAND ADULT
--- OUTSIDE RECORDS SUMMARY | 2025-01-24 09:49 | XMS_ITS | Clinical Summary ---
Author Organization [facility] Address [address] [facility] [address] [place] [address] Phone Care Team Providers Care Safe Expert Name Role Phone Anand Aguilar MD Primary Care Provider [phone] Allergies Active Allergy Reactions Criticality Noted Date [...] Only [facility] [address] [facility] [address] [place] [address] Kiki North ARNP Chronic kidney [...] Care Team (Late st Contact Info) Description 01/25/2025 11:45 AM EDT Office Visit [facility] [address] [address] Can [facility] [address] [address] Health Maintenance Due Date Last [...] (6 to 49 Years) Discontinued 07/15/2016 Insurance [facility] Medicaid Care Teams Safe Expert Relationship Specialty Start Date End Date Anand Aguilar MD [address] [place] [address] PCP - General 09/30/20
== END 2025-01-24 09:33 | disposition home or self-care (01) ==
LOC: HO.HMCC 09:15
PROVIDERS: PCP Internal Medicine; Visit Provider Internal Medicine
DX: Z13.9 Encounter for screening, unspecified (principal); J22 Unspecified acute lower respiratory infection

== ENCOUNTER → 2025-01-24 09:34 | Outpatient (BNV) | payer OTHER, SELFPAY | PROVIDERS: PCP Internal Medicine; Visit Provider Radiology Diagnostic Radiology | DX: J22 Unspecified acute lower respiratory infection (principal) | CPT/HCPCS: 71046 ==

== ENCOUNTER 2025-02-22 08:34 | Outpatient (AMB) | payer OTHER, SELFPAY ==
--- OUTSIDE RECORDS SUMMARY | 2025-02-22 08:55 | XMS_ITS | Clinical Summary ---
Author Organization [employer] Address [address] [facility] [address] [place] [address] Care Team Providers Care Records And Tape Recordings Engineer Name Role Phone Unavailable Primary Care Provider [...] Panel 1974 SDOH Screening 1974 Sigmoidoscopy 1974 Disability Screening 1974 Alcohol/Substance Use Screening 1986 Tobacco Screening 1986 Family Planning (PISQ) 1989 Hepatitis C Screening 1992 Hepatitis B Vaccines (1 of 3 - 19+ 3-dose series) 1993 Dental X-Ray: [facility] 12/09/2018 12/08/2017 COVID-19 Vaccine (3 - 2023- season) 2024 03/26/2021, 02/26/2021 Pneumococcal Vaccine: 50+ Years (2 of 2 - PCV) 2024 07/15/2016 Zoster Vaccines (1 of 2) 2024 Influenza Vaccine (Season Ended) 2025 10/08/2019, 08/17/2018, 03/20/2017, Additional history exists DTaP/Tdap/Td Vaccines (2 - Td or Tdap) [...] patient's age to complete this topic Meningococcal B Vaccine Aged Out No l onger eligible based on patient's age to complete [...] Most Recently Relevant to Health Maintenance Insurance [facility] MEDICAID STAND ADULT
--- NOTE | 2025-02-22 09:35 | MHC.PC.OV ---
Intake Visit Reasons: Discuss Kidney Referral Allergies No Known Allergies [No Known Allergies*] Allergy (Verified 12/25/24 10:03) bees Allergy (Unknown, Uncoded 12/25/24 10:03) swelling and difficulty breathing Medication List - Last Reconciled 02/22/25 by Anand Aguilar MD acetaminophen 500 mg PO Q6H amlodipine 10 mg See Protocol PO BEDTIME aspirin 81 mg PO DAILY atorvastatin 40 mg PO BEDTIME 90 days azithromycin 250 mg PO ONCE 5 days carvedilol 6.25 mg PO BID docusate sodium (Colace) 200 mg (2 x 100 mg) PO BEDTIME 90 days escitalopram oxalate 20 mg PO DAILY ferrous sulfate 324 mg PO BID 90 days gabapentin 300 mg PO TID lidocaine 5% 1 patch topical DAILY PRN lisinopril 20 mg PO DAILY 90 days omeprazole 40 mg PO BEDTIME prednisone 20 mg PO DAILY 5 days trazodone 100 mg PO BEDTIME zolpidem 5 mg PO BEDTIME PRN Tobacco use date assessed: 12/06/24 Dental Screening Dental Screen Date: 12/06/24 HPI Discuss Kidney Referral HPI Details History - The patient is a 49-year-old male presenting with inquiries about finding a new kidney specialist closer to his location due to difficulties in transportation. - He reported that Social Security has denied him a claim, resulting in a requirement to attend a hearing in [place], although he does not drive. - He mentioned missing two previous appointments with his current kidney doctor due to being in the clinic for illness the day before each appointment. - The patient's past kidney function was impaired during a previous hospitalization but has since returned to normal, as noted in recent bloodwork. - The patient expressed a desire to have all his doctors located more conveniently. - Laboratory tests from November were reported to show normal kidney function, negating the immediate need for consultation with a dimension mill worker. Medical History: - Previous hospitalization due to kidney impairment with subsequent recovery Social History: - The patient experiences transportation challenges as he does not drive. - He relies on another person for daily transportation and attending medical appointments. Diagnostic Results: - Labs: - Sodium: 139 mEq/L - Potassium: 3.8 mEq/L - Chloride: 105 mEq/L - Anion gap: 8 mEq/L - CO2:30 mEq/L - Blood Urea Nitrogen (BUN): 15 mg/dL - Creatinine: 1.19 mg/dL - Glomerular Filtration Rate (GFR): >60 mL/min/1.73m2 Problem List - Chronic Kidney Disease (previous hospitalization and recovery mentioned) - Transportation barrier (patient expressed difficulty driving to healthcare appointments) Patient Instructions - Continue current management and routine lab tests until the next scheduled bloodwork. - Seek medical assistance or advice if any health changes occur. - Follow up based on the hearing and transportation arrangements. Review of Systems - General: No fever no chills - Neurological: No headaches no dizziness - Ear nose throat: No sore throat no hearing difficulty no ear pain - Cardiovascular: No syncope, no chest pain, no palpitations - Gastrointestinal: No nausea vomiting or diarrhea PFSH Medical History Facial laceration Hiatal hernia Chronic GERD Hypertension, essential Cocaine abuse CKD (chronic kidney disease) stage 3, GFR 30-59 ml/min Cardiomyopathy Bipolar 1 disorder CHF (congestive heart failure) Family History Father No problems noted. Mother No problems noted. 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 Ricky Cárdenas, Doreen Cardona, Jl Pedro and colleagues, with an educational keith from [employer]. Physical exam (Primary Care) Tobacco/Smoking Status: Tobacco use Status Tobacco use date assessed 12/06/24 02/22/25 09:35 Patient Tobacco Use Status Never used Tobacco 02/22/25 09:35 e-Cigarette/Vaping Use Never Used 02/22/25 09:35 Thrive Assessment: Date of Thrive Assessment Date Thrive assessed 09/22/24 02/22/25 09:35 Telehealth Telehealth Telehealth Platform: [facility] Location of provider rendering services: practice address Location of patient: address on file Patient Identification confirmed using: Name, : Yes Telehealth method: video (aattempted) Patient verbally consented to treatment: Yes Patient verbally consented to billing insurance company: Yes Patient informed of any privacy concerns related to visit: Yes Minutes spent on Phone/Video with Pt.: 13 Coding Level of Care Code Tele Est Pt Level 3 (28788) Diagnoses Health counseling Z71.9 Hypertension, essential I10 Assessment & Plan Assessment & Plan (1) Health counseling: Code(s): Z71.9 - Counseling, unspecified Category: Medical (2) Hypertension, essential: Code(s): I10 - Essential (primary) hypertension Category: Medical Plan History - The patient is a 49-year-old male presenting with inquiries about finding a new kidney specialist closer to his location due to difficulties in transportation. - He reported that Social Security has denied him a claim, resulting in a requirement to attend a hearing in [place], although he does not drive. - He mentioned missing two previous appointments with his current kidney doctor due to being in the clinic for illness the day before each appointment. - The patient's past kidney function was impaired during a previous hospitalization but has since returned to normal, as noted in recent bloodwork. - The patient expressed a desire to have all his doctors located more conveniently. - Laboratory tests from November were reported to show normal kidney function, negating the immediate need for consultation with a dimension mill worker. Medical History: - Previous hospitalization due to kidney impairment with subsequent recovery Social History: - The patient experiences transportation challenges as he does not drive. - He relies on another person for daily transportation and attending medical appointments. Diagnostic Results: - Labs: - Sodium: 139 mEq/L - Potassium: 3.8 mEq/L - Chloride: 105 mEq/L - Anion gap: 8 mEq/L - CO2:30 mEq/L - Blood Urea Nitrogen (BUN): 15 mg/dL - Creatinine: 1.19 mg/dL - Glomerular Filtration Rate (GFR): >60 mL/min/1.73m2 Problem List - Chronic Kidney Disease (previous hospitalization and recovery mentioned) - Transportation barrier (patient expressed difficulty driving to healthcare appointments) Patient Instructions - Continue current management and routine lab tests until the next scheduled bloodwork. - Seek medical assistance or advice if any health changes occur. - Follow up based on the hearing and transportation arrangements.
== END 2025-02-22 09:42 | disposition home or self-care (01) ==
LOC: HO.HMCC 08:34
PROVIDERS: PCP Internal Medicine; Visit Provider Internal Medicine
DX: Z71.9 Counseling, unspecified (principal); I10 Essential (primary) hypertension

== ENCOUNTER → 2025-02-22 08:34 | Outpatient (BNVA) | payer OTHER, SELFPAY | PROVIDERS: PCP Internal Medicine; Visit Provider Internal Medicine ==

== ENCOUNTER 2025-04-04 13:52 | Outpatient (AMB) | payer OTHER, SELFPAY ==
[2025-04-04 13:54] VITALS: BP 142/86; PULSE 88; O2SAT 97
--- NOTE | 2025-04-04 13:54 | A.OFFPC_ITS ---
Vital Signs 3 04/04/25 13:54 Height 5 ft 11 in BMI Reason not done Patient refused/unable BP 142/86 H Blood Pressure Location Lt brachial Position Sitting Pulse 88 Pulse Source Pulse Oximeter Pulse Oximetry (%) 97 Intake Visit Reasons: pre op - ekg/cbcw.diff/bmp Grape Picker Required: No Allergies No Known Allergies (No Known Allergies*) Allergy (Verified 04/04/25 13:54) bees Allergy (Unknown, Uncoded 12/25/24 10:03) swelling and difficulty breathing Medication List - Last Reconciled 04/04/25 by Anand Aguilar MD acetaminophen 500 mg PO Q6H amlodipine 10 mg See Protocol PO BEDTIME aspirin 81 mg PO DAILY atorvastatin 40 mg PO BEDTIME 90 days bupropion HCl XL 150 mg PO QAM carvedilol 6.25 mg PO BID clonidine HCl 0.1 mg PO TID PRN docusate sodium (Colace) 200 mg (2 x 100 mg) PO BEDTIME 90 days escitalopram oxalate 20 mg PO DAILY eszopiclone 1 mg PO BEDTIME PRN ferrous sulfate 324 mg PO BID 90 days gabapentin 300 mg PO TID hydroxyzine HCl 25 mg PO BID lidocaine 5% 1 patch topical DAILY PRN lisinopril 20 mg PO DAILY 90 days omeprazole 40 mg PO BEDTIME quetiapine 300 mg PO BEDTIME trazodone 200 mg PO BEDTIME zolpidem 5 mg PO BEDTIME PRN Tobacco use date assessed: 12/06/24 Dental Screening Dental Screen Date: 12/06/24 HPI pre op - ekg/cbcw.diff/bmp 2 HPI0 Details Preop appointment Patient is a 49-year-old male with a history of cocaine abuse, on and off still going on, hypertension, lipid disorder, bipolar disorder, depression, anxiety, mild iron-deficiency anemia, chronic GERD came in today for preop evaluation, he will need to have updated labs, order placed - The injury occurred when the patient f ell from his couch at home. During the fall, his ankle rolled, and he attempted to sit back down but was too far from the couch, leading to a fall onto the buttocks with his leg twisted underneath. - The patient's skin remains intact, and he reports experiencing excruciating pain localized to the injured area. - The patient has been managing the pain with acetaminophen. - The patient denies any associated symp toms such as nausea, vomiting, fever, or chills. Patient is having surgery on April 06 for an urgent surgery right ankle fracture, repaired the fractured. Social History: - Reports recent cessation of cocaine us e, with the last use approximately 3 to 4 weeks ago. Echocardiogram done September 2024 Conclusions: - 1. Normal LV ejection fraction of 60 6 5% with moderate LVH with pseudonormal filling pattern 2. Cardiac valvular Dopplers within nor mal limits 3. Normal RV systolic pressure 4. No gross pericardial effusion Stress test done September 2024 Without EKG changes meeting criteria for ischemia EKG done today showed no acute findings Patient is on number of medications through Psychiatry Cardiac-villagomez patient is stable Last set of lab November of this year Showed normal kidney function fasting sugar of 108 Ferritin 6 Liver enzyme within normal limit LDL 101 TSH 1.50 CBC showed Hemoglobin of 11.0 with hematocrit 36.2 Platelet count 263 Medications - Amlodipine 10 mg daily for hypertensio n. - Atorvastatin 40 mg daily for hyperlipi demia. - Carvedilol 6.25 mg BID. - Wellbutrin 150 mg once daily for depre ssion. - Clonidine 0.1 mg TID for hypertension. - Lexapro 20 mg for depression. - Gabapentin 300 mg TID for neuropathic pain. - Hydroxyzine 25 mg BID for anxiety. - Quetiapine 300 mg at bedtime for mood stabilization. - Trazodone 200 mg for insomnia. - Albuterol 5 mg for respiratory issues. - Omeprazole 40 mg for GERD. - Lisinopril 20 mg for hypertension Problem List - Closed fracture of the right lower ext remity - Essential Hypertension - Chronic Depressive Disorder - Anxiety Disorder - Anemia - Gastroesophageal Reflux Disease (GERD) - Hyperlipidemia - Substance use disorder (cocaine, recen t cessation) Plan The patient presents with a closed fracture of the right lower extremity sustained due to a fall. The plan includes surgical intervention scheduled in two days. The patient will undergo labs today to ensure readiness for surgery. Analgesic management with acetaminophen is ongoing, and I anticipate more potent analgesia postoperatively. The patient is cleared from a cardiac standpoint with prior echocardiogram and stress test results. His chronic conditions, including hypertension and hyperlipidemia, are managed with a comprehensive medication regimen, which he is to continue. Psychiatric medications for depression and anxiety are maintained as part of his ongoing mental health management. Substance use history indicates recent cessation of cocaine, which is a part of his risk assessment, and there will be continuous support and evaluation for relapse prevention. The patient's anemia needs monitoring, with current labs to provide updated insights given his previous low ferritin levels. Follow-up appointment with me is already scheduled for May, aligning with post- operative recovery and further evaluation of his ongoing conditions. Medical Decision Making The patient is evaluated for a closed fracture of the right lower extremity with an impending surgical intervention. Considering the absence of acute cardiac concerns and recent cessation of cocaine use, the risks for surgery are minimal. His chronic conditions, hypertension, depression, and anxiety, are stable with current pharmacotherapy. Monitoring anemia given borderline labs may inform postoperative needs. Continuous opioid use post-surgery is expected to manage severe pain, ensuring pain management while preventing potential for misuse is pivotal. Lab work today will confirm his overall status before surgery. The goal is successful surgical correction, stable anesthesia management, and addressing chronic conditions during rehabilitation. Patient is stable for right foot surgery [facility] Medical History Facial laceration Hiatal hernia Chronic GERD Hypertension, essential Cocaine abuse CKD (chronic kidney disease) stage 3, GFR 30-59 ml/min Cardiomyopathy Bipolar 1 disorder CHF (congestive heart failure) Surgical History No pertinent past surgical history Family History Father No problems noted. Mother No problems noted. 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 Ricky Cárdenas, Doreen Cardona, Jl Pedro and colleagues, with an educational keith from [employer]. Review of Systems Const Denies chills and Denies fever(s) ENT Denies epistaxis and Denies nasal discharge Card Denies chest pain Resp Denies chest congestion, Denies cough and Denies hemoptysis GI Denies diarrhea and Denies nausea Skin/Breast Denies rash Neuro Reports no additional complaints Psych Reports no additional complaints Endo Reports no additional complaints Physical exam (Primary Care) Vital Signs: Last Vital Signs Pulse 88 04/04/25 13:54 BP 142/86 H 04/04/25 13:54 Pulse Ox 97 04/04/25 13:54 Tobacco/Smoking Status: Tobacco use Status Tobacco use date assessed 12/06/24 04/04/25 14:00 Patient Tobacco Use Status Never used Tobacco 04/04/25 14:00 e-Cigarette/Vaping Use Never Used 04/04/25 14:00 Thrive Assessment: Date of Thrive Assessment Date Thrive assessed 09/22/24 04/04/25 14:00 Const General: cooperative, comfortable and no acute distress Orientation/consciousness: patient oriented x3 HENMT Head: Yes normocephalic Eyes General: appearance normal, both eyes and all related structures Neck Neck: Yes supple Resp Effort & Inspection: normal respiratory effort, no cough and no stridor Cardio Other: Rhythm: regular rhythm Heart sounds: S1 normal heart sound present and S2 normal heart sound present Skin General skin exam: turgor normal Neuro General: patient oriented x3, tone normal and moves all extremities Office Procedures EKG 44916-[id number], Complete Coding Level of Care Code Est Pt Level 5 (48906) Diagnoses Pre-op evaluation Z01.818 Closed fracture of right foot, initial encounter S92.901A Encounter type: initial encounter Fracture type: closed Laterality: right Hypertension, essential I10 Lipid disorder E78.9 Bipolar 1 disorder F31.9 History of cocaine abuse F14.11 Chronic GERD K21.9 CPT Codes EKG - CPT: 45424-[id number], Complete ([id number]) Time Spent (min) 41 Comment Reviewing chart/labs/owgw-ys-zuzo/EKG/coordination of care Assessment & Plan Assessment & Plan (1) Pre-op evaluation: Code(s): Z01.818 - Encounter for other preprocedural examination Category: Medical (2) Foot fracture: Code(s): S92.909A - Unspecified fracture of unspecified foot, initial encounter for closed fracture Category: Medical Qualifiers: Encounter type: initial encounter Fracture type: closed Laterality: r ight Qualified Code(s): S92.901A - Unspecified fracture of right foot, initial encounter for closed fracture (3) Hypertension, essential: Code(s): I10 - Essential (primary) hypertension Category: Medical (4) Lipid disorder: Code(s): E78.9 - Disorder of lipoprotein metabolism, unspecified Category: Medical (5) Bipolar 1 disorder: Code(s): F31.9 - Bipolar disorder, unspecified Category: Medical (6) History of cocaine abuse: Code(s): F14.11 - Cocaine abuse, in remission Category: Medical (7) Chronic GERD: Code(s): K21.9 - Gastro-esophageal reflux disease without esophagitis Category: Medical Plan Preop appointment Patient is a 49-year-old male with a history of cocaine abuse, on and off still going on, hypertension, lipid disorder, bipolar disorder, depression, anxiety, mild iron-deficiency anemia, chronic GERD came in today for preop evaluation, he will need to have updated labs, order placed - The injury occurred when the patient fell from his couch at home. During the fall, his ankle rolled, and he attempted to sit back down but was too far from the couch, leading to a fall onto the buttocks with his leg twisted underneath. - The patient's skin remains intact, and he reports experiencing excruciating pain localized to the injured area. - The patient has been managing the pain with acetaminophen. - The patient denies any associated symptoms such as nausea, vomiting, fever, or chills. Patient is having surgery on April 06 for an urgent surgery right ankle fracture, repaired the fractured. Social History: - Reports recent cessation of cocaine use, with the last use approximately 3 to 4 weeks ago. Echocardiogram done September 2024 Conclusions: - 1. Normal LV ejection fraction of 60 65% with moderate LVH with pseudonormal filling pattern 2. Cardiac valvular Dopplers within normal limits 3. Normal RV systolic pressure 4. No gross pericardial effusion Stress test done September 2024 Without EKG changes meeting criteria for ischemia EKG done today showed no acute findings Patient is on number of medications through Psychiatry Cardiac-villagomez patient is stable Last set of lab November of this year Showed normal kidney function fasting sugar of 108 Ferritin 6 Liver enzyme within normal limit LDL 101 TSH 1.50 CBC showed Hemoglobin of 11.0 with hematocrit 36.2 Platelet count 263 Medications - Amlodipine 10 mg daily for hypertension. - Atorvastatin 40 mg daily for hyperlipidemia. - Carvedilol 6.25 mg BID. - Wellbutrin 150 mg once daily for depression. - Clonidine 0.1 mg TID for hypertension. - Lexapro 20 mg for depression. - Gabapentin 300 mg TID for neuropathic pain. - Hydroxyzine 25 mg BID for anxiety. - Quetiapine 300 mg at bedtime for mood stabilization. - Trazodone 200 mg for insomnia. - Albuterol 5 mg for respiratory issues. - Omeprazole 40 mg for GERD. - Lisinopril 20 mg for hypertension Problem List - Closed fracture of the right lower extremity - Essential Hypertension - Chronic Depressive Disorder - Anxiety Disorder - Anemia - Gastroesophageal Reflux Disease (GERD) - Hyperlipidemia - Substance use disorder (cocaine, recent cessation) Plan The patient presents with a closed fracture of the right lower extremity sustained due to a fall. The plan includes surgical intervention scheduled in two days. The patient will undergo labs today to ensure readiness for surgery. Analgesic management with acetaminophen is ongoing, and I anticipate more potent analgesia postoperatively. The patient is cleared from a cardiac standpoint with prior echocardiogram and stress test results. His chronic conditions, including hypertension and hyperlipidemia, are managed with a comprehensive medication regimen, which he is to continue. Psychiatric medications for depression and anxiety are maintained as part of his ongoing mental health management. Substance use history indicates recent cessation of cocaine, which is a part of his risk assessment, and there will be continuous support and evaluation for relapse prevention. The patient's anemia needs monitoring, with current labs to provide updated insights given his previous low ferritin levels. Follow-up appointment with me is already scheduled for May, aligning with post- operative recovery and further evaluation of his ongoing conditions. Medical Decision Making The patient is evaluated for a closed fracture of the right lower extremity with an impending surgical intervention. Considering the absence of acute cardiac concerns and recent cessation of cocaine use, the risks for surgery are minimal. His chronic conditions, hypertension, depression, and anxiety, are stable with current pharmacotherapy. Monitoring anemia given borderline labs may inform postoperative needs. Continuous opioid use post-surgery is expected to manage severe pain, ensuring pain management while preventing potential for misuse is pivotal. Lab work today will confirm his overall status before surgery. The goal is successful surgical correction, stable anesthesia management, and addressing chronic conditions during rehabilitation. Patient is stable for right foot surgery Orders: Orders 2 B Type Natriuretic Peptide Today E78.9 - Disorder of lipoprotein metabolism, unspecified, F14.11 - Cocaine abuse, in remission, F31.9 - Bipolar disorder, unspecified, I10 - Essential (primary) hypertension, K21.9 - Gastro-esophageal reflux disease without esophagitis, S92.909A - Unspecified fracture of unspecified foot, initial encounter for closed fracture, Z01.818 - Encounter for other preprocedural examination Complete Blood Count Auto Diff Today E78.9 - Disorder of lipoprotein metabolism, unspecified, F14.11 - Cocaine abuse, in remission, F31.9 - Bipolar disorder, unspecified, I10 - Essential (primary) hypertension, K21.9 - Gastro- esophageal reflux disease without esophagitis, S92.909A - Unspecified fracture of unspecified foot, initial encounter for closed fracture, Z01.818 - Encounter for other preprocedural examination Comprehensive Met. Panel Today E78.9 - Disorder of lipoprotein metabolism, unspecified, F14.11 - Cocaine abuse, in remission, F31.9 - Bipolar disorder, unspecified, I10 - Essential (primary) hypertension, K21.9 - Gastro-esophageal reflux disease without esophagitis, S92.909A - Unspecified fracture of unspecified foot, initial encounter for closed fracture, Z01.818 - Encounter for other preprocedural examination Prothrombin Time INR Today E78.9 - Disorder of lipoprotein metabolism, unspecified, F14.11 - Cocaine abuse, in remission, F31.9 - Bipolar disorder, unspecified, I10 - Essential (primary) hypertension, K21.9 - Gastro-esophageal reflux disease without esophagitis, S92.909A - Unspecified fracture of unspecified foot, initial encounter for closed fracture, Z01.818 - Encounter for other preprocedural examination Medications: Changed 2 From trazodone 100 mg PO BEDTIME 20 tabs 0RF To trazodone 200 mg PO BEDTIME
--- OUTSIDE RECORDS SUMMARY | 2025-04-04 14:43 | XMS_ITS | Clinical Summary ---
Author Organization [employer] Address [address] [place] [address] Care Team Providers Care Emergency Management System Director Name Role Phone Unavailable Primary Care Provider [...] Vaccines (1 of 2) 2024 Influenza Vaccine (#1) 2025 0, 08/17/2018, 03/20/2017, Additional history exists DTaP/Tdap/Td Vaccines [...] Most Recently Relevant to Health Maintenance Insurance [facility] [place]ICAID STAND ADULT
--- OUTSIDE RECORDS SUMMARY | 2025-04-04 14:43 | XMS_ITS | Clinical Summary ---
Author Organization [facility] Address [address] [place] [address] Phone Care Team Providers Care Health Care Coordinator Name Role Phone Anand Aguilar MD Primary Care Provider [phone] Allergies Active Allergy Reactions Criticality Noted Date [...] heart failure 06/17/2021 Nonischemic congestive cardiomyopathy 06/17/2021 Family History Medical History Relation Comments Diabetes [...] Cancer Screening: Sigmoidoscopy 2023 Influenza Vaccine (#1) 2025 Pneumococcal Vaccine: Peds ( 0 to 5 Years) and At-Risk Patients (6 to 49 Years) Discontinued 07/15/2016 Insurance [facility] Medicaid Care Teams Health Care Coordinator Relationship Specialty Start Date End Date Anand Aguilar MD [address] [place] [address] PCP - General 09/30/20
== END 2025-04-04 14:23 | disposition home or self-care (01) ==
LOC: HO.HMCC 13:53
PROVIDERS: PCP Internal Medicine; Visit Provider Internal Medicine
DX: I10 Essential (primary) hypertension (principal); F31.9 Bipolar disorder, unspecified; F14.11 Cocaine abuse, in remission; Z01.818 Encounter for other preprocedural examination; S92.901A Unspecified fracture of right foot, initial encounter for closed fracture; E78.9 Disorder of lipoprotein metabolism, unspecified; K21.9 Gastro-esophageal reflux disease without esophagitis

== ENCOUNTER 2025-04-04 13:52 | Outpatient (REF) | payer OTHER, SELFPAY ==
[2025-04-04 16:08] LABS: MANUAL DIFF FLAG NO
[2025-04-04 16:15] LABS: Hematocrit 38.6 % (42.0-52.0); Hemoglobin 12.2 g/dl (14.0-18.0); Imm Gran Abs Auto 0.02 X10*3/uL (0.00-0.03); Imm Gran Pct Auto 0.3 % (0.0-0.4); Lymphocytes Absolute Auto 1.9 X10*3/uL (1.2-4.9); Mean Corpuscular HGB Conc 31.6 g/dl (31.0-36.0); Mean Corpuscular Hemoglobin 24.3 pg (27.0-33.0); Mean Corpuscular Volume 76.9 fL (80.0-98.0); NRBC Abs Auto 0.000 X10*3/uL (0.0-0.012); NRBC Pct Auto 0.0 /100WBC (0.0-0.2); Platelet Count 347 X10*3/uL (160-400); Red Blood Count 5.02 X10*6/uL (4.60-5.80); White Blood Count 5.9 X10*3/uL (4.8-10.8)
[2025-04-04 16:25] LABS: INTERNATIONAL NORM RATIO 0.9 (0.9-1.1); Prothrombin Time 10.6 SEC (10.9-12.4)
[2025-04-04 16:35] LABS: Alanine Aminotransferase 22 U/L (0-40); Albumin Level 4.8 g/dL (3.5-5.0); Alkaline Phosphatase 82 U/L (39-117); Anion Gap 14 (12-20); Aspartate Amino Transferase 28 U/L (5-37); Blood Urea Nitrogen 15 mg/dL (9-16); Calcium 9.5 mg/dL (8.4-10.2); Carbon Dioxide 27 mmol/L (22-29); Chloride 103 mmol/L (96-108); Estimated Glomerular Filt Rate 46; Potassium 4.1 mmol/L (3.3-5.1); Sodium 140 mmol/L (135-145); Total Protein 8.0 g/dL (6.5-8.0)
[2025-04-04 16:49] LABS: B Type Natriuretic Peptide < 10 pg/mL (<100)
== END 2025-04-04 13:53 | disposition home or self-care (01) ==
LOC: HO.HMGCLDS 13:52
PROVIDERS: PCP Internal Medicine; Visit Provider Internal Medicine
DX: Z01.818 Encounter for other preprocedural examination (principal); S92.901D Unspecified fracture of right foot, subsequent encounter for fracture with routine healing; I10 Essential (primary) hypertension; E78.9 Disorder of lipoprotein metabolism, unspecified; F31.9 Bipolar disorder, unspecified; K21.9 Gastro-esophageal reflux disease without esophagitis; F14.11 Cocaine abuse, in remission; Z79.899 Other long term (current) drug therapy
CPT/HCPCS: 36415; 80053; 83880; 85025; 85610; 93005; 99212

== ENCOUNTER 2025-05-15 13:06 | Outpatient (AMB) | payer OTHER, SELFPAY ==
--- NOTE | 2025-05-15 13:09 | A.OFFVIS_ITS ---
Vital Signs 05/15/25 13:16 Height 5 ft 11 in Weight 220 lb BMI 30.7 BP 114/84 Blood Pressure Location Lt brachial Position Sitting Intake Visit Reasons: [place] screening Intake Note: Mannie presents in the office as a screening for a colonoscopy. CC: He states that he may also have a hiatal hernia and he was told that he may be able to do the colonoscopy the same time as the hernia repair. Lump in the epigastric region and he takes omeprazole and still has reflux. Gets SOB when he lays on the left side. Allergies No Known Allergies (No Known Allergies*) Allergy (Verified 05/15/25 13:13) bees Allergy (Unknown, Uncoded 05/15/25 13:13) swelling and difficulty breathing HPI HPI [place] screening: Details: 49 year old? male with past medical history of CVA, cardiomyopathy, hypertension, hyperlipidemia, history of cocaine abuse, bipolar disorder, GERD, hiatal hernia is here today for pre colonoscopy screening.? Patient was sent to us by his PCP.? This is his first colonoscopy screening.? Patient denies any gastrointestinal symptoms in the past or at present. However patient does have a history of acid reflux. Currently is not taking any PPI.? History of cocaine use, sober for the last couple years.? Denies history of difficulty with sedation or anesthesia in the past.? Negative for history of sleep apnea.? Denies any history of renal, pulmonary, or hepatic disease.?? No history of infectious? diseases like hepatitis A, B, C, HIV or tuberculosis.? Patient is not on any anticoagulation [facility] Medical History Facial laceration Hiatal hernia Chronic GERD Hypertension, essential Cocaine abuse CKD (chronic kidney disease) stage 3, GFR 30-59 ml/min Cardiomyopathy Bipolar 1 disorder CHF (congestive heart failure) Surgical History No pertinent past surgical history Family History Father No problems noted. Mother No problems noted. 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 Cognitive needs: No Hearing needs: No Vision needs: Yes (glasses) Review of Systems Const Denies weight gain and Denies weight loss ENT Reports no additional complaints, Denies dysphagia and Denies odynophagia Card Reports no additional complaints Resp Reports no additional complaints GI Denies abdominal pain, Denies belching, Denies melena, Reports bloating, Denies change in bowel habits, Denies dysphagia, Denies excessive flatus, Denies dyspepsia, Reports heartburn, Denies diarrhea, Denies loose stools, Denies nausea, Denies odynophagia and Denies vomiting Reports no additional complaints Musc Reports no additional complaints Neuro Reports no additional complaints Psych Reports no additional complaints Endo Reports no additional complaints Physical Exam Vital Signs: Last Vital Signs BP 114/84 05/15/25 13:16 BMI result Body Mass Index 30.7 Const General: healthy appearing, no acute distress and well developed Nutritional Appearance: well nourished Orientation/consciousness: patient oriented x3 Resp Effort & Inspection: normal respiratory effort, able to speak in complete sentences, no tracheal deviation and symmetric chest movement Auscultation: clear to auscultation bilaterally Cardio Rate: regular rate GI Inspection: Yes normal to inspection and No distended Palpation (GI): Soft to palpation, not firm, nontender and No hepatosplenomegaly present Auscultation: normal bowel sounds General: Yes no CVA tenderness Back/Spine/Pelvis Back: no CVA tenderness Skin General skin exam: elasticity normal, turgor normal and dry skin Neuro General: patient oriented x3 Psych Appearance: grossly normal Mental Status: mental status grossly normal Assessment & Plan Assessment & Plan (1) Colon cancer screening: Code(s): Z12.11 - Encounter for screening for malignant neoplasm of colon Category: Medical (2) Chronic GERD: Code(s): K21.9 - Gastro-esophageal reflux disease without esophagitis Category: Medical (3) Postprandial epigastric pain: Code(s): R10.13 - Epigastric pain Plan Patient denies any cardiac or respiratory symptoms.? Denies any issues with anesthesia in the past.? Denies any history of sleep apnea.? Not on any anticoagulation therapy.? No family or personal history of colon cancer or polyps.? Patient denies melena, hematochezia, unintentional weight loss or ribbon like stools.? Patient will be sent for upper endoscopy as well. He will start taking Nexium daily. Avoid dietary triggers and late night snacking. Staying upright for minimum 3 hours after meals discussed with patient. Patient will return in 8 weeks to discuss endoscopy and colonoscopy. Will send him for upper GI with barium swallow to evaluate reflux and hernia. Will check thyroid, vitamin-D, transglutaminase, lipase and vitamin-B 12 and folate. Message sent to unclaimed property officer of Cardiology. Patient has a history of cardiomyopathy and will need to be cleared before procedure. Patient is agreeable to current plan of care and verbalizes understanding of instructions. He was given the opportunity to ask questions and all questions answered. Thank you for allowing me to participate in his care Orders: Orders FL upper GI w air w Ba Swallow 05/15/25 K21.9 - Gastro-esophageal reflux disease without esophagitis TSH reflex Free T4 05/15/25 K59.00 - Constipation, unspecified Vitamin D 25-OH (D2 and D3) 05/15/25 E55.9 - Vitamin D deficiency, unspecified Transglutaminase IgA 05/15/25 R10.9 - Unspecified abdominal pain Lipase 05/15/25 R10.9 - Unspecified abdominal pain Vitamin B12 and Folate 05/15/25 R19.7 - Diarrhea, unspecified Medications: New esomeprazole magnesium (Nexium) 40 mg PO DAILY 30 caps 3RF K21.9 - Gastro- esophageal reflux disease without esophagitis polyethylene glycol 3350 (Miralax) 17 grams PO DAILY 510 grams 2RF Discontinued omeprazole Discontinued Reason: Doctor's Order 40 mg PO BEDTIME 90 caps 0RF Coding Level of Care Code New Pt Level 4 (26799) Diagnoses Colon cancer screening Z12.11 Chronic GERD K21.9 Postprandial epigastric pain R10.13 Time Spent (min) 45 Comment 35 minutes spent with patient and additional 10 minutes spent reviewing his records
[2025-05-15 13:16] VITALS: BP 114/84; BMI 30.7
--- OUTSIDE RECORDS SUMMARY | 2025-05-15 13:53 | XMS_ITS | Clinical Summary ---
Author Organization [employer] Address [address] [place] [address] Care Team Providers Care Coupling Machine Operator Name Role Phone Unavailable Primary Care Provider [...] Most Recently Relevant to Health Maintenance Insurance [facility] MEDICAID STAND ADULT
--- OUTSIDE RECORDS SUMMARY | 2025-05-15 13:53 | XMS_ITS | Clinical Summary ---
Author Organization [facility] Address [address] [place] [address] Phone Care Team Providers Care Dumper Operator Name Role Phone Anand Aguilar MD [...] (6 to 49 Years) Discontinued 07/15/2016 Insurance [facility] Medicaid Care Teams Dumper Operator Relationship Specialty Start Date End Date Anand Aguilar MD [address] [place] [address] PCP - General 09/30/20
== END 2025-05-15 13:32 | disposition home or self-care (01) ==
LOC: HO.HGI 13:07
PROVIDERS: PCP Internal Medicine; Visit Provider Nurse Practitioner Family
DX: Z01.818 Encounter for other preprocedural examination (principal); Z12.11 Encounter for screening for malignant neoplasm of colon; K21.9 Gastro-esophageal reflux disease without esophagitis; R10.13 Epigastric pain
CPT/HCPCS: 99204

== ENCOUNTER → 2025-05-15 13:06 | Outpatient (BNVA) | payer OTHER, SELFPAY | PROVIDERS: PCP Internal Medicine; Visit Provider Nurse Practitioner Family | DX: Z12.11 Encounter for screening for malignant neoplasm of colon (principal); K21.9 Gastro-esophageal reflux disease without esophagitis; R10.13 Epigastric pain | CPT/HCPCS: 99202 ==

== ENCOUNTER 2025-06-20 07:49 | Outpatient (REF) | payer OTHER, SELFPAY ==
--- NOTE | ~2025-06-20 | FL_ITS ---
EXAMINATION: XR UPPER GI SERIES WITH BARIUM SWALLOW. CLINICAL INFORMATION: Gastroesophageal reflux disease COMPARISON: None available. TECHNIQUE: Routine upper GI air contrast study was performed in upright and lying position. At the end of the exam saltine crackers coated with barium paste was administered orally and upright swallow was performed. FINDINGS: Following oral administration of thick barium and effervescent granules is normal propagation bolus from the oral cavity through the pharynx, esophagus into stomach without obstruction or narrowing. No extrinsic compression seen. On oral administration of solid saltine cookies with thick barium there is normal oral mastication and propagation of bolus from the oral cavity through the pharynx and esophagus and stomach. On placing patient supine lying there is moderate to large sliding hiatal hernia with moderate gastroesophageal reflux. There is increased gastric secretions. The mucosal pattern of the stomach, duodenal bulb and sweep is normal. FLUOROSCOPY TIME: 2 minutes and 30 seconds. DOSE AREA PRODUCT: 3265 uGy-m2 (microgray-meter squared) FL/FL upper GI w air w Ba Swallow IMPRESSION: Moderate to large sliding hiatal hernia with moderate gastroesophageal reflux. Increased gastric secretions suggestive of hyper acidity. The esophagus is unremarkable . Electronically signed by: Severiano Villalba MD 06/20/2025 10:14 AM EDT
--- OUTSIDE RECORDS SUMMARY | 2025-06-20 07:53 | XMS_ITS | Clinical Summary ---
Author Organization [employer] Address [address] [place] [address] Care Team Providers Care Restoration Officer Name Role Phone Unavailable Primary Care Provider [...] series) 1993 Dental X-Ray: Bitewings 12/09/2018 12/08/2017 Pneumococcal Vaccine: 50+ Years (2 of 2 - PCV) 2024 07/15/2016 Zoster Vaccines (1 of 2) 2024 COVID-19 Vaccine (3 - 2024- season) 2025 03/26/2021, 02/26/2021 Influenza Vaccine (#1) 2025 0, 08/17/2018, 03/20/2017, [...]
--- OUTSIDE RECORDS SUMMARY | 2025-06-20 07:53 | XMS_ITS | Clinical Summary ---
Author Organization [facility] Address [address] [place] [address] Phone Care Team Providers Care Teachers' Aide Name Role Phone Anand Aguilar MD Primary Care Provider [phone] Allergies Active Allergy Reactions Criticality Noted Date [...] (6 to 49 Years) Discontinued 07/15/2016 Insurance [facility] [place] [address] Care Teams Teachers' Aide Relationship Specialty Start Date End Date Anand Aguilar MD [address] [place] [address] PCP - General 09/30/20
[2025-06-20 09:55] LABS: Lipase 18 U/L (8-78)
[2025-06-20 10:36] LABS: Folate 6.1 ng/mL (> or = 4.0); Vitamin B12 373 pg/mL (200-900)
[2025-06-25 17:24] LABS: Vitamin D 25-OH, D2 <4 ng/mL; Vitamin D 25-OH, D3 22 ng/mL; Vitamin D 25-OH, Total 22 ng/mL (30-100)
== END 2025-06-20 07:50 | disposition home or self-care (01) ==
LOC: HO.XRAY 07:49
PROVIDERS: PCP Internal Medicine; Visit Provider Nurse Practitioner Family
DX: K21.9 Gastro-esophageal reflux disease without esophagitis (principal); K59.00 Constipation, unspecified; R19.7 Diarrhea, unspecified; E55.9 Vitamin D deficiency, unspecified; R10.9 Unspecified abdominal pain
CPT/HCPCS: 36415; 74246; 82306; 82607; 82746; 83690; 84443; 86364

== ENCOUNTER → 2025-06-20 07:50 | Outpatient (BNV) | payer OTHER, SELFPAY | PROVIDERS: PCP Internal Medicine; Visit Provider Radiology Diagnostic Radiology | DX: K21.9 Gastro-esophageal reflux disease without esophagitis (principal) | CPT/HCPCS: 74246 ==

== ENCOUNTER 2025-07-20 15:05 | Outpatient (AMB) | payer OTHER, SELFPAY ==
[2025-07-20 15:10] VITALS: BP 118/60; PULSE 74; BMI 31.0
--- NOTE | 2025-07-20 15:10 | MHC.OFFVIS ---
Vital Signs 07/20/25 15:10 Height 5 ft 11 in Weight 222 lb 3.615 oz BMI 31.0 BP 118/60 Blood Pressure Location Lt brachial Position Sitting Pulse 74 Pulse Source Monitor Intake Visit Reasons: Follow up [employer] Required: No Accompanied by: Self / Same As Patient Allergies No Known Allergies (No Known Allergies*) Allergy (Verified 07/20/25 15:13) bees Allergy (Unknown, Uncoded 05/15/25 13:13) swelling and difficulty breathing Medication List - Last Reconciled 07/20/25 by Fernando Lewis NP acetaminophen 500 mg PO Q6H amlodipine 10 mg See Protocol PO BEDTIME aspirin 81 mg PO DAILY atorvastatin 40 mg PO BEDTIME 90 days bupropion HCl XL 150 mg PO QAM carvedilol 6.25 mg PO BID clonidine HCl 0.1 mg PO TID PRN docusate sodium (Colace) 200 mg (2 x 100 mg) PO BEDTIME 90 days escitalopram oxalate 20 mg PO DAILY esomeprazole magnesium 40 mg PO DAILY eszopiclone 1 mg PO BEDTIME PRN ferrous sulfate 324 mg PO BID 90 days gabapentin 300 mg PO TID hydroxyzine HCl 25 mg PO BID lidocaine 5% 1 patch topical DAILY PRN lisinopril 20 mg PO DAILY 90 days polyethylene glycol 3350 (Miralax) 17 grams PO DAILY quetiapine 300 mg PO BEDTIME trazodone 200 mg PO BEDTIME zolpidem ER 6.25 mg PO BEDTIME PRN HPI Comments Details: This is a 50-year-old male patient coming in for a follow-up visit. Patient with a history of hypertension, hyperlipidemia, chronic kidney disease, TIA in March of 2024, and cocaine use who had previously reported shortness of breath with exertion for which patient was to undergo a stress test. During the stress test patient had worsening chest pain for which patient was to undergo a coronary CTA that was rescheduled to times but patient was unable to make it to them due to right issues. Today, patient is reporting ongoing shortness of breath with exertion as well as chest discomfort that can occur with exertion as well as at rest. Patient is otherwise denying any palpitations, dizziness, orthopnea, PND, leg edema, presyncope or syncope. Patient is reporting compliance with all his medications and states that he has not used any cocaine since his TIA last year for which patient was commended. [facility] Medical History Facial laceration Hiatal hernia Chronic GERD Hypertension, essential Cocaine abuse CKD (chronic kidney disease) stage 3, GFR 30-59 ml/min Cardiomyopathy Bipolar 1 disorder CHF (congestive heart failure) Surgical History No pertinent past surgical history Family History Father No problems noted. Mother No problems noted. 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 Cognitive needs: No Hearing needs: No Vision needs: Yes (glasses) Review of Systems Const Denies daytime sleepiness, Denies difficulty sleeping, Denies snoring, Denies stops breathing during sleep and Denies weakness Card Reports chest pain, Denies rapid heart rate, Denies irregular heart rhythm, Denies claudication, Denies leg edema, Denies lightheadedness, Denies palpitations, Denies dyspnea, Denies dyspnea on exertion, Denies orthopnea, Denies paroxysmal nocturnal dyspnea and Denies slow heart rate Resp Denies cough, Denies dyspnea, Denies dyspnea on exertion and Denies snoring GI Reports no additional complaints, Denies hematochezia, Denies change in stool character and Denies dyspepsia Musc Denies abnormal gait, Reports myalgias, Reports arthralgias, Denies muscle weakness and Denies numbness Neuro Denies abnormal gait, Denies numbness and Denies weakness Endo Denies palpitations Physical Exam Vital Signs: Last Vital Signs Pulse 74 07/20/25 15:10 BP 118/60 07/20/25 15:10 BMI result Body Mass Index 31.0 Const General: cooperative, healthy appearing, comfortable and no acute distress Orientation/consciousness: patient oriented x3 HEENT Head: Yes normal to inspection Neck Neck: Yes normal visual inspection, Yes trachea midline and Yes supple Chest Chest palpation & inspection: normal inspection of the chest Resp Effort & Inspection: normal respiratory effort Auscultation: clear to auscultation bilaterally, no crackles, no rales, no rhonchi and no wheezes Cardio Jugular venous distension: no JVD Palpation: normal PMI Rate: regular rate Rhythm: regular rhythm Heart sounds: S1 normal heart sound present, S2 normal heart sound present, no click, no gallops, no murmurs and no rubs Peripheral pulses: Peripheral pulses 2+ throughout GI Inspection: Yes normal to inspection Palpation (GI): Soft to palpation Auscultation: normal bowel sounds Skin General skin exam: no rashes or lesions noted Neuro General: patient oriented x3 Extrem General: Yes normal to inspection, No no pedal edema and No calf tenderness Psych Appearance: grossly normal Mental Status: mental status grossly normal Speech and movement: Normal speech and movement present Office Procedures EKG Details: EKG today showed normal sinus rhythm, rate 74 beats per minute, occasional PVCs, nonspecific T-wave abnormality, [place], [place]. [id number], Complete Assessment & Plan Assessment & Plan (1) Chest pain: Code(s): R07.9 - Chest pain, unspecified Category: Medical Qualifiers: Chest pain type: precordial pain Qualified Code(s): R07.2 - Precordial pain Plan: 10/12/2024-patient underwent a treadmill stress test with a moderate workload where patient had worsening chest discomfort and shortness of breath without an EKG changes. Given his ongoing reports of shortness of breath with exertion and chest discomfort, we will once again try for a coronary CTA. Patient believes that he can make it this time because he has a stable person who can bring to his appointments. Continue current regimen. Advised to seek ER care in case of exertional chest pain not resolved with rest. (2) Cardiomyopathy: Code(s): I42.9 - Cardiomyopathy, unspecified Category: Medical Qualifiers: Cardiomyopathy type: due to drug Qualified Code(s): I42.7 - Cardiomyopathy due to drug and external agent Plan: 10/12/2024-echo study showed a improved LV systolic function with an ejection fraction between 60-65% with moderate LVH with pseudo normal filling pattern. EF back in October of 2023 was 40-45 %. Clinically euvolemic. (3) JAFFE (dyspnea on exertion): Code(s): R06.09 - Other forms of dyspnea Category: Medical Plan: As above. (4) Hypertension, essential: Code(s): I10 - Essential (primary) hypertension Category: Medical Plan: Blood pressure today is well-controlled. Continue current regimen with a blood pressure goal less than 130/80. Advised on low-salt diet. (5) Lipid disorder: Code(s): E78.9 - Disorder of lipoprotein metabolism, unspecified Category: Medical Plan: Most recent LDL at 100. Continue with statin therapy with an LDL goal closer closer to 70. We will update a lipid profile. Advised heart healthy diet, regular exercise, med compliance, and aggressive management of vascular risk factors. Follow up after coronary CTA. In the interim, patient will call the office with any concerns or change in symptoms. Patient states that he may be going in for a colonoscopy and we will plan on clearing him depending on the results from coronary CTA. This note was generated using voice recognition software. While every effort has been made to ensure accuracy and proper shed workers supervisor, there may be occasional errors that could affect the content or meaning of the described symptoms. 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
--- OUTSIDE RECORDS SUMMARY | 2025-07-20 15:24 | XMS_ITS | Clinical Summary ---
Author Organization [employer] Address [address] [place] [address] Care Team Providers Care Osteopathic Medicine Teacher Name Role Phone Unavailable Primary Care [...] Most Recently Relevant to Health Maintenance Insurance [facility] MEDICAID STAND ADULT
== END 2025-07-20 15:41 | disposition home or self-care (01) ==
LOC: HO.HCS 15:06
PROVIDERS: PCP Internal Medicine
DX: R07.2 Precordial pain (principal); I42.7 Cardiomyopathy due to drug and external agent; R06.09 Other forms of dyspnea; I10 Essential (primary) hypertension; E78.9 Disorder of lipoprotein metabolism, unspecified
CPT/HCPCS: 93010; 99214

== ENCOUNTER → 2025-07-20 15:05 | Outpatient (BNVA) | payer OTHER, SELFPAY | PROVIDERS: PCP Internal Medicine | DX: R07.2 Precordial pain (principal); R06.09 Other forms of dyspnea; I42.7 Cardiomyopathy due to drug and external agent; I10 Essential (primary) hypertension; E78.9 Disorder of lipoprotein metabolism, unspecified | CPT/HCPCS: 93005; 99212 ==